=== PATIENT | male | born 1970 | race African-American/Black ===

== ENCOUNTER 2020-05-27 10:25 | Outpatient (REF) | payer MEDICARE, MEDICAID, SELFPAY ==
[2020-05-27 11:04] LABS: MANUAL DIFF FLAG NO
[2020-05-27 11:14] LABS: Basophils Percent Auto 0.5 % (0-2); Eosinophils Absolute Auto 0.1 X10*3/uL (0.0-0.4); Eosinophils Percent Auto 2.4 % (0-4); Hematocrit 44.2 % (42-52); Imm Gran Abs Auto 0.03 X10*3/uL (0.00-0.03); Imm Gran Pct Auto 0.8 % (0.0-0.4); Lymphocytes Absolute Auto 1.5 X10*3/uL (1.2-4.9); Lymphocytes Percent Auto 39.1 % (20-40); Mean Corpuscular HGB Conc 33.9 g/dl (31.0-36.0); Mean Corpuscular Hemoglobin 29.7 pg (27.0-33.0); Mean Corpuscular Volume 87.5 fL (80-98); Monocytes Absolute Auto 0.3 X10*3/uL (0.1-1.2); Neutrophils Absolute Auto 1.8 X10*3/uL (2.0-8.3); Neutrophils Percent Auto 48.2 % (45-73); Platelet Count 220 X10*3/uL (160-400); Red Blood Count 5.05 X10*6/uL (4.60-5.80); Red Cell Distribution Width 12.2 % (11.0-16.0); White Blood Count 3.8 X10*3/uL (4.8-10.8)
[2020-05-27 11:59] LABS: Alanine Aminotransferase 47 U/L (0-40); Albumin Level 4.5 g/dL (3.5-5.0); Alkaline Phosphatase 102 U/L (39-117); Aspartate Amino Transferase 32 U/L (5-37); Bilirubin Direct 0.2 mg/dL (0.0-0.5); Bilirubin Total 0.5 mg/dL (0.0-1.0); Blood Urea Nitrogen 11 mg/dL (9-16); Calcium 9.1 mg/dL (8.4-10.2); Cholesterol 147 mg/dL; Estimated Glomerular Filt Rate > 60; Glucose Fasting 103 mg/dL (60-99); HDL Cholesterol 33 mg/dL; LDL Cholesterol Calculated 97 mg/dl; Total Protein 7.5 g/dL (6.5-8.0); Triglycerides 88 mg/dL
[2020-05-27 12:07] LABS: Anion Gap 10 (12-20); Carbon Dioxide 27 mmol/L (22-29); Chloride 106 mmol/L (96-108); Potassium 4.2 mmol/l (3.3-5.1); Sodium 139 mmol/L (135-145)
== END 2020-05-27 10:26 | disposition home or self-care (01) ==
LOC: HO.LAB 10:25
DX: E78.5 Hyperlipidemia, unspecified (principal)
CPT/HCPCS: 36415; 80048; 80061; 80076; 85025

== ENCOUNTER 2020-11-26 09:33 | Outpatient (REF) | payer MEDICARE, MEDICAID, SELFPAY ==
[2020-11-26 10:46] LABS: MANUAL DIFF FLAG NO
[2020-11-26 11:00] LABS: Basophils Percent Auto 0.3 % (0-2); Eosinophils Absolute Auto 0.1 X10*3/uL (0.0-0.4); Eosinophils Percent Auto 1.3 % (0-4); Hematocrit 44.4 % (42-52); Hemoglobin 14.5 g/dl (14.0-18.0); Imm Gran Abs Auto 0.01 X10*3/uL (0.00-0.03); Imm Gran Pct Auto 0.3 % (0.0-0.4); Lymphocytes Absolute Auto 1.2 X10*3/uL (1.2-4.9); Lymphocytes Percent Auto 31.1 % (20-40); Mean Corpuscular HGB Conc 32.7 g/dl (31.0-36.0); Mean Corpuscular Hemoglobin 29.4 pg (27.0-33.0); Mean Corpuscular Volume 89.9 fL (80-98); Mean Platelet Volume 9.1 fL (9.4-12.4); Monocytes Absolute Auto 0.3 X10*3/uL (0.1-1.2); Monocytes Percent Auto 7.3 % (2-11); Neutrophils Absolute Auto 2.4 X10*3/uL (2.0-8.3); Neutrophils Percent Auto 59.7 % (45-73); Platelet Count 255 X10*3/uL (160-400); Red Blood Count 4.94 X10*6/uL (4.60-5.80); Red Cell Distribution Width 12.5 % (11.0-16.0)
[2020-11-26 11:11] LABS: Alanine Aminotransferase 50 U/L (0-40); Albumin Level 4.5 g/dL (3.5-5.0); Alkaline Phosphatase 129 U/L (39-117); Anion Gap 14 (12-20); Aspartate Amino Transferase 54 U/L (5-37); Bilirubin Total 0.2 mg/dL (0.0-1.0); Blood Urea Nitrogen 15 mg/dL (9-16); Calcium 8.7 mg/dL (8.4-10.2); Carbon Dioxide 27 mmol/L (22-29); Chloride 104 mmol/L (96-108); Cholesterol 140 mg/dL; Estimated Glomerular Filt Rate > 60; Glucose Fasting 128 mg/dL (60-99); HDL Cholesterol 35 mg/dL; LDL Cholesterol Calculated 81 mg/dl; Potassium 4.6 mmol/L (3.3-5.1); Sodium 140 mmol/L (135-145); Total Protein 7.6 g/dL (6.5-8.0); Triglycerides 122 mg/dL
== END 2020-11-26 09:34 | disposition home or self-care (01) ==
LOC: HO.LAB 09:33
PROVIDERS: PCP Internal Medicine; Visit Provider Internal Medicine
DX: E03.9 Hypothyroidism, unspecified (principal); E11.9 Type 2 diabetes mellitus without complications; Z00.00 Encounter for general adult medical examination without abnormal findings
CPT/HCPCS: 36415; 80053; 80061; 84443; 85025

== ENCOUNTER → 2021-01-13 12:46 | Outpatient (BNVA) | payer MEDICARE, MEDICAID, SELFPAY | PROVIDERS: PCP Internal Medicine; Referring Provider Internal Medicine; Visit Provider Nurse Practitioner | DX: Z12.11 Encounter for screening for malignant neoplasm of colon (principal) | CPT/HCPCS: 99202 ==

== ENCOUNTER 2021-02-16 10:56 | Day surgery (SDC) | payer MEDICARE, MEDICAID, SELFPAY ==
--- NOTE | 2021-02-15 10:19 | P.CONAN_ITS ---
Documented by User: Taryn Crespo 02/15/21 10:20 HPI - Anesthesia Eval Consult details Narrative: 50yo M for Colonoscopy PMFSH Active Problems Active Problems: All Active Problems (Updated 02/09/21 @ 16:14 by Radha Watts) Encounter for screening for malignant neoplasm of colon (Acute) Hyperlipidemia (Acute) Past Medical History Medical History (Updated 02/09/21 @ 16:14 by Radha Watts) Anemia Auditory hallucination Autism spectrum disorder Hx of psychiatric hospitalization Hyperlipidemia Insomnia Psoriasis Family History Family History Mother No problems noted. Father No problems noted. Surgical History Surgical History No pertinent past surgical history Social History Social History (Updated 01/19/21 @ 09:30 by GER Anderson) Alcohol intake: never Patient Tobacco Use Status: Never used Tobacco Use of substances other than those prescribed or required for medical reasons: No Have you been hit, kicked, punched, or otherwise hurt by someone within the past year? If so, by whom?: No Are you DNR?: No Advance Directives: No Advance Directives Information Provided: Yes Meds Allergies Allergy/AdvReac Type Severity Reaction Status Date / Time No Known Allergies Allergy Verified 02/09/21 16:01 [No Known Allergies*] Home Medications Medication Instructions Recorded Confirmed Last Taken Type olanzapine 5 mg tablet 5 mg PO BEDTIME 10/22/20 02/09/21 Unknown History primidone 50 mg tablet 50 mg PO BID 10/22/20 02/09/21 Unknown History secukinumab 150 mg/mL subcutaneous 150 mg SUBCUT Q4W 10/22/20 02/09/21 Unknown History pen injector betamethasone dipropionate 0.05 % TOPICAL 01/13/21 01/19/21 Unknown History lotion hydrocortisone 2.5 % topical TOPICAL 01/13/21 01/19/21 Unknown History ointment cholecalciferol (vitamin D3) 1 tab PO DAILY 02/09/21 02/09/21 Unknown History [Vitamin D3] Exam Exam Date and Time: February 15, 2021 1019 Pertinent Lab Results Pertinent Lab Results: Laboratory Tests 11/26/20 11/26/20 09:55 09:55 WBC 4.0 L Hgb 14.5 Hct 44.4 Plt Count 255 Sodium 140 Potassium 4.6 Chloride 104 Carbon Dioxide 27 BUN 15 Creatinine 0.88 Assessment and Plan Assessment Anesthesia Assessment: Chart Reviewed Documented by User: Nahomy Jack 02/16/21 12:20 [facility] Past Medical History Medical History (Updated 02/09/21 @ 16:14 by Radha Watts) Anemia Auditory hallucination Autism spectrum disorder Hx of psychiatric hospitalization Hyperlipidemia Insomnia Psoriasis Family History Family History Mother No problems noted. Father No problems noted. Surgical History Surgical History No pertinent past surgical history Social History Social History (Updated 01/19/21 @ 09:30 by GER Anderson) Alcohol intake: never Patient Tobacco Use Status: Never used Tobacco Use of substances other than those prescribed or required for medical reasons: No Have you been hit, kicked, punched, or otherwise hurt by someone within the past year? If so, by whom?: No Are you DNR?: No Advance Directives: No Advance Directives Information Provided: Yes Meds Allergies Allergy/AdvReac Type Severity Reaction Status Date / Time No Known Allergies Allergy Verified 02/09/21 16:01 [No Known Allergies*] Home Medications Medication Instructions Recorded Confirmed Last Taken Type olanzapine 5 mg tablet 5 mg PO BEDTIME 10/22/20 02/09/21 Unknown History primidone 50 mg tablet 50 mg PO BID 10/22/20 02/09/21 Unknown History secukinumab 150 mg/mL subcutaneous 150 mg SUBCUT Q4W 10/22/20 02/09/21 Unknown History pen injector betamethasone dipropionate 0.05 % TOPICAL 01/13/21 01/19/21 Unknown History lotion hydrocortisone 2.5 % topical TOPICAL 01/13/21 01/19/21 Unknown History ointment cholecalciferol (vitamin D3) 1 tab PO DAILY 02/09/21 02/09/21 Unknown History [Vitamin D3] Exam Airway Mallampati Class: II TM Dist: >3cm Neck ROM: Full Heart: rrr Lungs: cta Assessment and Plan Assessment Anesthesia Assessment: Anesthesia Plan Discussed and Chart Reviewed Final Anesthetic Review NPO: Yes ASA Class: III Final Preanesthetic Review: No Changes in Pt Med Stat and Consent Obtained/Reviewed Patient Risk: Intermediate Procedure Risk: Intermediate Anesthetic Plan Anesthetic Plan: MAC: Disposition: Standard PACU
[2021-02-16 11:14] VITALS: BMI 33.9
[2021-02-16 11:15] VITALS: BP 114/82; PULSE 62; RESP 18; TEMP 35.8; O2SAT 99
[2021-02-16] MEDS: Lactated Ringers 1,000 ML 100 ML IVCONT (11:41)
--- NOTE | 2021-02-16 11:51 | MHC.SHP ---
Pre-Procedural Eval Section B Chief Complaint: Screening Relevant Family History (Specify if Yes): No Relevant Social History: None Present Medications: see Short Stay Collaborative assessment Medical History: Significant History (Anemia Auditory hallucination Autism spectrum disorder Hx of psychiatric hospitalization Hyperlipidemia Insomnia Psoriasis) History of Previous Operations: No relevant previous surgery Allergies: Allergies Allergy/AdvReac Type Severity Reaction Status Date / Time No Known Allergies Allergy Verified 02/09/21 16:01 [No Known Allergies*] Review of Systems Sugical H&P ROS: Negative: Constitution, Cardiovascular, Respiratory, Neurological, Psychiatric, Hem-Onc, Allergic/Immunologic, Gastrointestinal, Genitourinary, Musculoskeletal, Integumentary, Endocrine and Eyes/Ears/Nose/Throat Exam Surgical H&P Exam: Normal: HEENT, Normal: Heart, Normal: Lungs, Normal: Extremities, Normal: Abdomen, Normal: Skin and Normal: Neurological Plan Diagnosis/Plan: Unchanged I have reviewed the history and physical and performed a pertinent physical examination on my patient. No changes have occurred unless specified.
--- NOTE | 2021-02-16 12:13 | PM.OP ---
Brief Operative Note Date of Service: 02/16/21 Pre-op diagnosis: colon screening Post-op diagnosis: same Procedure: see op note Surgeon: Alexandro Be MD Anesthesia: MAC Was an Lithograph Press Operator used for this Procedure?: No Estimated blood loss (mL): 0 Condition: stable Disposition: PACU
--- NOTE | 2021-02-16 12:14 | W.PM.OPN ---
Operative Note Operative Note Date of Service: 02/16/21 Narrative: Operative Information Procedure Description: Colonoscopy COLONOSCOPY Instrument: Olympus variable stiffness pediatric scope 190L Colonoscopy Monitoring: Vital signs and clinical assessment, continuous EKG monitoring, Pulse oximetry, Carbon Dioxide monitoring and blood pressure monitoring were done throughout the procedure. Colon withdrawal time was 15 minutes. Procedure: The patient was placed in the left lateral decubitis position and pre-procedure medications were administered. After a digital rectal examination of the ano-rectum, the video colonoscope was inserted into the rectum and advanced through the colon to the cecum/TI. The colonoscope was slowly withdrawn in a retrograde panoramic fashion and the colon mucosa was carefully examined including a retroflexed view of the rectum. Findings and interventions are described below. Procedure Difficulty:easy Findings: Terminal Ileum-normal Cecum:normal Ascending Colon: normal Transverse Colon -normal Descending Colon:normal Sigmoid Colon: normal apart from x 2 sessile polyps 8-9 mm removed with forceps, mild diverticulosis noted with small diverticula Rectum: Retroflexion with small internal hemorrhoids, grade I Anorectum - normal Colon preparation: [place] Bowel Preparation Scale Right colon; 2 Transverse colon: 3 Left colon; 2 (0 = Unprepared colon segment with mucosa not seen due to solid stool that cannot be cleared. 1 = Portion of mucosa of the colon segment seen, but other areas of the colon segment not well seen due to staining, residual stool and/or opaque liquid. 2 = Minor amount of residual staining, small fragments of stool and/or opaque liquid, but mucosa of colon segment seen well. 3 = Entire mucosa of colon segment seen well with no residual staining, small fragments of stool or opaque liquid) Impression and Post Procedure Diagnosis: polyps internal hemorrhoids diverticular disease Plan: High fiber diet leaflet Avoid straining at stool, epsom salts and sitz bath, anusol supps or cream as needed Repeat Colonoscopy in 5 years if adenomatous polyps, otherwise 10 yrs or earlier if clinically indicated Above findings were reviewed with the patient and relevant handouts were provided if indicated.
[2021-02-16 12:59] VITALS: BP 107/73; PULSE 65; RESP 16; TEMP 36.3; O2SAT 98
[2021-02-16 13:14] VITALS: BP 115/76; PULSE 87; RESP 18; O2SAT 100
== END 2021-02-16 14:25 | disposition home or self-care (01) ==
PROVIDERS: PCP Internal Medicine; Visit Provider Internal Medicine Gastroenterology
PROC: 0DJD8ZZ Inspection of Lower Intestinal Tract, Via Natural or Artificial Opening Endoscopic (ICD-10-PCS; CPT 45378; principal; 2021-02-16 12:20)
DX: Z12.11 Encounter for screening for malignant neoplasm of colon (principal); K63.5 Polyp of colon; K64.0 First degree hemorrhoids; K57.30 Diverticulosis of large intestine without perforation or abscess without bleeding; D64.9 Anemia, unspecified; F84.0 Autistic disorder; R44.0 Auditory hallucinations; G47.00 Insomnia, unspecified; F51.9 Sleep disorder not due to a substance or known physiological condition, unspecified; E78.5 Hyperlipidemia, unspecified; L40.9 Psoriasis, unspecified; Z79.899 Other long term (current) drug therapy
CPT/HCPCS: 45380; 88305

== ENCOUNTER → 2021-03-14 15:00 | Outpatient (BNVA) | payer MEDICARE, MEDICAID, SELFPAY | PROVIDERS: PCP Internal Medicine; Visit Provider Nurse Practitioner | DX: Z12.11 Encounter for screening for malignant neoplasm of colon (principal) | CPT/HCPCS: Q3014 ==

== ENCOUNTER 2021-05-30 10:03 | Outpatient (REF) | payer MEDICARE, MEDICAID, SELFPAY ==
[2021-05-30 11:02] LABS: Cholesterol 147 mg/dL; HDL Cholesterol 37 mg/dL; LDL Cholesterol Calculated 92 mg/dl; Triglycerides 90 mg/dL
== END 2021-05-30 10:04 | disposition home or self-care (01) ==
LOC: HO.LAB 10:03
PROVIDERS: Visit Provider Internal Medicine
DX: E11.9 Type 2 diabetes mellitus without complications (principal)
CPT/HCPCS: 36415; 80061

== ENCOUNTER 2021-11-22 08:12 | Outpatient (REF) | payer MEDICARE, MEDICAID, SELFPAY ==
[2021-11-22 09:32] LABS: Cholesterol 131 mg/dL; HDL Cholesterol 38 mg/dL; LDL Cholesterol Calculated 78 mg/dl; Triglycerides 78 mg/dL
== END 2021-11-22 08:13 | disposition home or self-care (01) ==
LOC: HO.LAB 08:12
PROVIDERS: PCP Internal Medicine; Visit Provider Internal Medicine
DX: Z00.00 Encounter for general adult medical examination without abnormal findings (principal); Z13.220 Encounter for screening for lipoid disorders
CPT/HCPCS: 36415; 80061

== ENCOUNTER 2022-03-17 11:29 | Outpatient (REF) | payer MEDICAID, SELFPAY ==
[2022-03-17 12:43] LABS: Cholesterol 144 mg/dL; HDL Cholesterol 40 mg/dL; LDL Cholesterol Calculated 84 mg/dl; Triglycerides 102 mg/dL
== END 2022-03-17 11:30 | disposition home or self-care (01) ==
LOC: HO.LAB 11:29
PROVIDERS: PCP Internal Medicine; Visit Provider Internal Medicine
DX: Z13.220 Encounter for screening for lipoid disorders (principal)
CPT/HCPCS: 36415; 80061

== ENCOUNTER 2022-06-07 10:14 | Outpatient (REF) | payer MEDICARE, MEDICAID, SELFPAY ==
[2022-06-07 10:28] LABS: MANUAL DIFF FLAG NO
[2022-06-07 10:56] LABS: Basophils Percent Auto 0.5 % (0-2); Eosinophils Absolute Auto 0.1 X10*3/uL (0.0-0.4); Eosinophils Percent Auto 1.8 % (0-4); Hematocrit 44.4 % (42.0-52.0); Hemoglobin 15.1 g/dl (14.0-18.0); Imm Gran Abs Auto 0.01 X10*3/uL (0.00-0.03); Imm Gran Pct Auto 0.2 % (0.0-0.4); Lymphocytes Absolute Auto 1.4 X10*3/uL (1.2-4.9); Mean Corpuscular Hemoglobin 29.5 pg (27.0-33.0); Mean Corpuscular Volume 86.7 fL (80.0-98.0); Mean Platelet Volume 8.7 fL (9.4-12.4); Monocytes Absolute Auto 0.3 X10*3/uL (0.1-1.2); Monocytes Percent Auto 7.2 % (2-11); Neutrophils Absolute Auto 2.5 x10*3/uL (2.0-8.3); Neutrophils Percent Auto 57.3 % (45-73); Platelet Count 244 X10*3/uL (160-400); Red Blood Count 5.12 X10*6/uL (4.60-5.80); Red Cell Distribution Width 12.5 % (11.0-16.0); White Blood Count 4.3 X10*3/uL (4.8-10.8)
[2022-06-07 12:05] LABS: Alanine Aminotransferase 38 U/L (0-40); Albumin Level 4.5 g/dL (3.5-5.0); Alkaline Phosphatase 126 U/L (39-117); Anion Gap 14 (12-20); Aspartate Amino Transferase 28 U/L (5-37); Bilirubin Total 0.8 mg/dL (0.0-1.0); Blood Urea Nitrogen 5 mg/dL (9-16); Calcium 9.3 mg/dL (8.4-10.2); Carbon Dioxide 28 mmol/L (22-29); Chloride 103 mmol/L (96-108); Cholesterol 152 mg/dL; Estimated Glomerular Filt Rate > 60; Glucose Fasting 124 mg/dL (60-99); HDL Cholesterol 40 mg/dL; LDL Cholesterol Calculated 89 mg/dl; Potassium 4.2 mmol/L (3.3-5.1); Sodium 141 mmol/L (135-145); Total Protein 7.8 g/dL (6.5-8.0); Triglycerides 115 mg/dL
== END 2022-06-07 10:15 | disposition home or self-care (01) ==
LOC: HO.LAB 10:14
PROVIDERS: PCP Internal Medicine; Visit Provider Internal Medicine
DX: E03.9 Hypothyroidism, unspecified (principal); E78.5 Hyperlipidemia, unspecified; I10 Essential (primary) hypertension; Z13.0 Encounter for screening for diseases of the blood and blood-forming organs and certain disorders involving the immune mechanism
CPT/HCPCS: 36415; 80053; 80061; 84443; 85025

== ENCOUNTER 2023-01-29 10:26 | Outpatient (REF) | payer MEDICARE, MEDICAID, SELFPAY ==
[2023-01-29 12:17] LABS: Cholesterol 133 mg/dL; HDL Cholesterol 39 mg/dL; LDL Cholesterol Calculated 80 mg/dl; Triglycerides 73 mg/dL
== END 2023-01-29 10:27 | disposition home or self-care (01) ==
LOC: HO.LAB 10:26
PROVIDERS: PCP Internal Medicine; Visit Provider Internal Medicine
DX: E78.5 Hyperlipidemia, unspecified (principal)
CPT/HCPCS: 36415; 80061

== ENCOUNTER 2023-03-27 13:30 | Outpatient (AMB) | payer MEDICARE, MEDICAID, SELFPAY ==
--- NOTE | 2023-03-27 13:38 | MHC.PC.OV ---
Vital Signs 03/27/23 13:39 Height 6 ft 1 in Weight 246 lb 6 oz BMI 32.5 BP 130/70 Blood Pressure Location Lt brachial Position Sitting Pulse 85 Pulse Source Pulse Oximeter Pulse Oximetry (%) 95 Oxygen Delivery Method Room Air Intake Visit Reasons: swollen right knee Intake Note: Patient is here today for swollen right knee External Relations Manager Required: No Plate And Weld Inspector: Not Required per policy Accompanied by: Self / Same As Patient Allergies No Known Allergies [No Known Allergies*] Allergy (Verified 03/27/23 13:39) Medication List - Last Reconciled 03/27/23 by Nicholas Daniels MD atorvastatin 80 mg PO DAILY folic acid 1 mg PO DAILY olanzapine 10 mg PO BEDTIME primidone 50 mg PO BID risankizumab-rzaa (Skyrizi) 150 mg subcut Q12W Tobacco use date assessed: 03/27/23 Dental Screening Dental Screen Date: 03/27/23 Did you have a dental visit in the last 12 months?: No Did you have a dental problem in the last 6 months where you did not have access to dental care?: No Was dental information given to patient?: No HPI swollen right knee HPI Details right knee pain and swelling for a few days; no injury PFSH Medical History Anemia Auditory hallucination Autism spectrum disorder Hx of psychiatric hospitalization Hyperlipidemia Insomnia Obesity Psoriasis Surgical History H/O colonoscopy No pertinent past surgical history Family History Mother No problems noted. Father No problems noted. Social History Housing: Condominium Alcohol intake: never Patient Tobacco Use Status: Never used Tobacco e-Cigarette/Vaping Use: Never Used Second Hand Smoke Exposure: No service: No Current occupational status: unemployed Cognitive needs: No Hearing needs: No Vision needs: Yes (glasses) Questionnaire Thrive Questionnaire Date Thrive assessed: 11/16/22 BARRETT-7 AMB Questionnaire BARRETT-7 Date BARRETT - 7 assessed: 11/16/22 Source: Developed by Drs. Tyrell Keen, Tiffany Brooks, Chucho Abdi and colleagues, with an educational halina from [employer]. Review of Systems Const Denies chills, Denies headache(s) and Denies weight loss ENT Denies headache(s) Card Denies chest pain, Denies syncope, Denies irregular heart rhythm and Denies dyspnea Resp Denies chest congestion, Denies cough and Denies dyspnea GI Denies abdominal pain, Denies change in stool character, Denies nausea and Denies vomiting Musc Denies deformity and Denies joint swelling Neuro Denies syncope and Denies headache(s) Physical exam (Primary Care) Vital Signs: Last Vital Signs Pulse 85 03/27/23 13:39 BP 130/70 03/27/23 13:39 Pulse Ox 95 03/27/23 13:39 Oxygen Delivery Method Room Air 03/27/23 13:39 BMI result Body Mass Index 32.5 Tobacco/Smoking Status: Tobacco use Status Tobacco use date assessed 03/27/23 03/27/23 13:43 Patient Tobacco Use Status Never used Tobacco 03/27/23 13:43 e-Cigarette/Vaping Use Never Used 03/27/23 13:43 Thrive Assessment: Date of Thrive Assessment Date Thrive assessed 11/16/22 03/27/23 13:43 Const General: cooperative Chest Chest palpation & inspection: normal inspection of the chest GI Inspection: Yes normal to inspection Extrem Other: right knee swollen tender and warm Assessment and Plan Assessment & Plan (1) Knee pain: Code(s): M25.569 - Pain in unspecified knee Plan: xr labs and rx; possible gout Orders: Orders Uric Acid Today M10.9 - Gout, unspecified XR knee RT 2V Today M25.569 - Pain in unspecified knee Medications: New methylprednisolone (Medrol (Chato)) PO PER PKG DIR 21 ea 0RF tramadol 50 mg PO Q8H PRN 20 tabs 0RF pain 7 days Coding Level of Care Code Est Pt Level 3 (96188) Diagnoses Knee pain M25.569
[2023-03-27 13:39] VITALS: BP 130/70; PULSE 85; O2SAT 95; BMI 32.5
== END 2023-03-27 14:14 | disposition home or self-care (01) ==
LOC: HO.HMGH 13:30
PROVIDERS: PCP Internal Medicine; Visit Provider Internal Medicine
DX: M25.569 Pain in unspecified knee (principal)
CPT/HCPCS: 99213

== ENCOUNTER 2023-03-27 13:57 | Outpatient (REF) | payer MEDICARE, MEDICAID, SELFPAY ==
--- NOTE | ~2023-03-27 | XR_ITS ---
EXAMINATION: XR KNEE, RIGHT CLINICAL INFORMATION: Pain. COMPARISON: None available. TECHNIQUE: AP and lateral views of the right knee. FINDINGS: Bony alignment and mineralization are normal. The lateral, medial and patellofemoral joint space compartment are well-maintained. There is mild peripheral osteophyte formation of the medial and patellofemoral compartments. There is no fracture or dislocation. There is a moderate joint effusion. No foreign body is noted. XR/XR knee RT 2V IMPRESSION: 1. There is mild osteoarthritic change of the medial and patellofemoral joint space compartments of the right knee. 2. No fracture or dislocation is seen. 3. There is a small joint effusion.
== END 2023-03-27 13:58 | disposition home or self-care (01) ==
LOC: HO.XRAY 13:57
PROVIDERS: PCP Internal Medicine; Visit Provider Internal Medicine
DX: M25.561 Pain in right knee (principal)
CPT/HCPCS: 73560

== ENCOUNTER 2023-04-04 08:30 | Outpatient (AMB) | payer MEDICARE, MEDICAID, SELFPAY ==
--- NOTE | 2023-04-04 09:09 | A.OFFPC_ITS ---
Vital Signs 04/04/23 09:10 Height 6 ft 1 in Weight 236 lb 8 oz BMI 31.2 BP 100/72 Blood Pressure Location Lt brachial Position Sitting Pulse 71 Pulse Source Pulse Oximeter Pulse Oximetry (%) 96 Oxygen Delivery Method Room Air Intake Visit Reasons: right knee pain Intake Note: Patient is here today for right knee pain Computer Peripheral Equipment Operator Required: No Electromechanical Engineer: Not Required per policy Accompanied by: Self / Same As Patient Allergies No Known Allergies [No Known Allergies*] Allergy (Verified 04/04/23 09:10) Tobacco use date assessed: 04/04/23 HPI right knee pain HPI Details ongoing right knee pain; has an effusion on xr PFSH Medical History Anemia Auditory hallucination Autism spectrum disorder Hx of psychiatric hospitalization Hyperlipidemia Insomnia Obesity Psoriasis Surgical History H/O colonoscopy No pertinent past surgical history Family History Mother No problems noted. Father No problems noted. Social History Housing: Condominium Alcohol intake: never Patient Tobacco Use Status: Never used Tobacco e-Cigarette/Vaping Use: Never Used Second Hand Smoke Exposure: No service: No Current occupational status: unemployed Cognitive needs: No Hearing needs: No Vision needs: Yes (glasses) Questionnaire Thrive Questionnaire Date Thrive assessed: 11/16/22 BARRETT-7 AMB Questionnaire BARRETT-7 Date BARRETT - 7 assessed: 11/16/22 Source: Developed by Drs. Tyrell Keen, Tiffany Brooks, Chucho Abdi and colleagues, with an educational halina from [employer]. Review of Systems Const Denies chills, Denies headache(s) and Denies weight loss ENT Denies headache(s) Card Denies chest pain, Denies syncope, Denies irregular heart rhythm and Denies dyspnea Resp Denies chest congestion, Denies cough and Denies dyspnea GI Denies abdominal pain, Denies change in stool character, Denies nausea and Denies vomiting Musc Denies deformity and Denies joint swelling Neuro Denies syncope and Denies headache(s) Physical exam (Primary Care) Vital Signs: Last Vital Signs Pulse 71 04/04/23 09:10 BP 100/72 04/04/23 09:10 Pulse Ox 96 04/04/23 09:10 Oxygen Delivery Method Room Air 04/04/23 09:10 BMI result Body Mass Index 31.2 Tobacco/Smoking Status: Tobacco use Status Tobacco use date assessed 04/04/23 04/04/23 09:15 Patient Tobacco Use Status Never used Tobacco 04/04/23 09:15 e-Cigarette/Vaping Use Never Used 04/04/23 09:15 Thrive Assessment: Date of Thrive Assessment Date Thrive assessed 11/16/22 04/04/23 09:15 Const General: cooperative Chest Chest palpation & inspection: normal inspection of the chest GI Inspection: Yes normal to inspection Extrem Other: right knee swollen tender and warm Assessment and Plan Assessment & Plan (1) Knee effusion: Code(s): M25.469 - Effusion, unspecified knee Plan: check Uric acid Orders: Orders Uric Acid Today M10.9 - Gout, unspecified Referrals Orthopedics Referral M25.469 - Effusion, unspecified knee Coding Level of Care Code Est Pt Level 3 (80901) Diagnoses Knee effusion M25.469
[2023-04-04 09:10] VITALS: BP 100/72; PULSE 71; O2SAT 96; BMI 31.2
== END 2023-04-04 09:48 | disposition home or self-care (01) ==
LOC: HO.HMGH 08:30
PROVIDERS: PCP Internal Medicine; Visit Provider Internal Medicine
DX: M25.469 Effusion, unspecified knee (principal)
CPT/HCPCS: 99213

== ENCOUNTER 2023-04-27 12:08 | Outpatient (REF) | payer MEDICARE, MEDICAID, SELFPAY ==
[2023-04-27 12:19] LABS: MANUAL DIFF FLAG NO
[2023-04-27 13:10] LABS: Basophils Percent Auto 0.4 % (0-2); Eosinophils Percent Auto 0.7 % (0-4); Hemoglobin 13.8 g/dl (14.0-18.0); Imm Gran Abs Auto 0.01 X10*3/uL (0.00-0.03); Imm Gran Pct Auto 0.2 % (0.0-0.4); Lymphocytes Absolute Auto 1.5 X10*3/uL (1.2-4.9); Lymphocytes Percent Auto 26.1 % (20-40); Mean Corpuscular HGB Conc 32.9 g/dl (31.0-36.0); Mean Corpuscular Hemoglobin 28.9 pg (27.0-33.0); Mean Corpuscular Volume 88.1 fL (80.0-98.0); Monocytes Absolute Auto 0.5 X10*3/uL (0.1-1.2); Monocytes Percent Auto 8.1 % (2-11); Neutrophils Absolute Auto 3.6 x10*3/uL (2.0-8.3); Neutrophils Percent Auto 64.5 % (45-73); Platelet Count 266 X10*3/uL (160-400); Red Blood Count 4.77 X10*6/uL (4.60-5.80); Red Cell Distribution Width 13.1 % (11.0-16.0); White Blood Count 5.6 X10*3/uL (4.8-10.8)
[2023-04-27 14:35] LABS: Alanine Aminotransferase 37 U/L (0-40); Albumin Level 4.7 g/dL (3.5-5.0); Alkaline Phosphatase 130 U/L (39-117); Anion Gap 15 (12-20); Aspartate Amino Transferase 26 U/L (5-37); Bilirubin Total 0.8 mg/dL (0.0-1.0); Blood Urea Nitrogen 9 mg/dL (9-16); Carbon Dioxide 23 mmol/L (22-29); Chloride 107 mmol/L (96-108); Cholesterol 151 mg/dL (<200); Estimated Glomerular Filt Rate > 60; Glucose Fasting 100 mg/dL (60-99); HDL Cholesterol 44 mg/dL (>40); LDL Cholesterol Calculated 94 mg/dL (<100); Potassium 3.9 mmol/L (3.3-5.1); Sodium 141 mmol/L (135-145); Total Protein 8.1 g/dL (6.5-8.0); Triglycerides 66 mg/dL (<150); Uric Acid 5.5 mg/dL (3.4-7.0)
[2023-04-27 14:53] LABS: Thyroid Stimulating Hormone 0.78 uIU/mL (0.32-4.0)
== END 2023-04-27 12:09 | disposition home or self-care (01) ==
LOC: HO.LAB 12:08
PROVIDERS: PCP Internal Medicine; Visit Provider Internal Medicine
DX: D64.9 Anemia, unspecified (principal); E03.9 Hypothyroidism, unspecified; M10.9 Gout, unspecified; N28.9 Disorder of kidney and ureter, unspecified; E78.5 Hyperlipidemia, unspecified
CPT/HCPCS: 36415; 80053; 80061; 84443; 84550; 85025

== ENCOUNTER 2023-05-14 09:37 | Outpatient (AMB) | payer MEDICARE, MEDICAID, SELFPAY ==
--- NOTE | 2023-05-14 09:47 | AM.OFFVISNUR ---
Intake Intake Visit Reasons: TB Shot Allergies No Known Allergies [No Known Allergies*] Allergy (Verified 04/04/23 09:10) Office Meds tuberculin PPD 5 tub. unit/0.1 mL intradermal injection solution Performing Provider: Nicholas Daniels MD [facility] Administered by: Lisbet Paz RN on 05/14/23 09:47 Dose Route Admin Location Dispensed Lot Number Expiration Date NDC Spooling Supervisor 0.1 mL intradermal left forearm 0.1 mL [id number] 06/26/26 91510-455-91 [employer] Coding Assessment & Plan Assessment & Plan Orders: Orders AMB PPD Planted Today Z11.1 - Encounter for screening for respiratory tuberculosis
== END 2023-05-14 09:48 | disposition home or self-care (01) ==
PROVIDERS: PCP Internal Medicine; Visit Provider Internal Medicine
DX: Z11.1 Encounter for screening for respiratory tuberculosis (principal)
CPT/HCPCS: 86580

== ENCOUNTER 2023-05-22 09:33 | Outpatient (AMB) | payer MEDICARE, MEDICAID, SELFPAY ==
[2023-05-22 09:53] VITALS: BP 132/84; PULSE 70; O2SAT 98; BMI 33.1
--- NOTE | 2023-05-22 09:53 | MHC.PC.OV ---
Vital Signs 05/22/23 09:53 Height 6 ft 1 in Weight 251 lb BMI 33.1 BP 132/84 Blood Pressure Location Lt brachial Position Sitting Pulse 70 Pulse Source Pulse Oximeter Pulse Oximetry (%) 98 Oxygen Delivery Method Room Air Intake Visit Reasons: 3mth f/u Special Client Bus Driver: Not Required per policy Accompanied by: Self / Same As Patient Allergies No Known Allergies [No Known Allergies*] Allergy (Verified 05/22/23 09:53) Medication List - Last Reconciled 05/22/23 by Nicholas Daniels MD atorvastatin 80 mg PO DAILY folic acid 1 mg PO DAILY methylprednisolone (Medrol (Chato)) PO PER PKG DIR olanzapine 10 mg PO BEDTIME primidone 50 mg PO BID risankizumab-rzaa (Skyrizi) 150 mg subcut Q12W tramadol 50 mg PO Q8H PRN 7 days Tobacco use date assessed: 04/04/23 Dental Screening Dental Screen Date: 05/22/23 Did you have a dental visit in the last 12 months?: No Did you have a dental problem in the last 6 months where you did not have access to dental care?: No Was dental information given to patient?: Patient has dentist HPI 3mth f/u HPI Details hyperlipidemia on rx; compliant PFSH Medical History Obesity Hx of psychiatric hospitalization Anemia Psoriasis Insomnia Auditory hallucination Autism spectrum disorder Hyperlipidemia Surgical History H/O colonoscopy No pertinent past surgical history Family History Mother No problems noted. Father No problems noted. Social History Housing: Condominium Alcohol intake: never Patient Tobacco Use Status: Never used Tobacco e-Cigarette/Vaping Use: Never Used Second Hand Smoke Exposure: No service: No Current occupational status: unemployed Cognitive needs: No Hearing needs: No Vision needs: Yes (glasses) Questionnaire PHQ-9 Over the last 2 weeks, how often have you been bothered by any of the following problems? 1. Little interest or pleasure in doing things: not at all 2. Feeling down, depressed, or hopeless: not at all 3. Trouble falling or staying asleep, or sleeping too much: not at all 4. Feeling tired or having little energy: not at all 5. Poor appetite or overeating: not at all 6. Feeling bad about yourself - or that you are a failure or have let yourself or your family down: not at all 7. Trouble concentrating on things, such as reading the newspaper or watching television: not at all 8. Moving or speaking so slowly that other people could have noticed. Or the opposite - being so fidgety or restless that you have been moving around a lot more than usual: not at all 9. Thoughts that you would be better off or of hurting yourself in some way: not at all Total score: 0 Depression Screening Interpretation: Negative Source: Developed by Drs. Tyrell Keen, Tiffany Brooks, Chucho Abdi and colleagues, with an educational halina from [employer]. Thrive Questionnaire Date Thrive assessed: 11/16/22 AUDIT C Alcohol Use Questionnaire (AUDIT-C) 1. How often do you have a drink containing alcohol?: Never Total Score: 0 Score Reviewed/Action Taken: Yes BARRETT-7 AMB Questionnaire BARRETT-7 Date BARRETT - 7 assessed: 11/16/22 Source: Developed by Drs. Tyrell Keen, Tiffany Brooks, Chucho Abdi and colleagues, with an educational halina from [employer]. Review of Systems Const Denies chills, Denies headache(s) and Denies weight loss ENT Denies headache(s) Card Denies chest pain, Denies syncope, Denies irregular heart rhythm and Denies dyspnea Resp Denies chest congestion, Denies cough and Denies dyspnea GI Denies abdominal pain, Denies change in stool character, Denies nausea and Denies vomiting Musc Denies deformity and Denies joint swelling Neuro Denies syncope and Denies headache(s) Physical exam (Primary Care) Vital Signs: Last Vital Signs Pulse 70 05/22/23 09:53 BP 132/84 05/22/23 09:53 Pulse Ox 98 05/22/23 09:53 Oxygen Delivery Method Room Air 05/22/23 09:53 BMI result Body Mass Index 33.1 Tobacco/Smoking Status: Tobacco use Status Tobacco use date assessed 04/04/23 05/22/23 09:57 Patient Tobacco Use Status Never used Tobacco 05/22/23 09:57 e-Cigarette/Vaping Use Never Used 05/22/23 09:57 PHQ-9: PHQ-9 Score PHQ-9: Total score 0 05/22/23 09:57 Depression Screening Interpretation: Negative Thrive Assessment: Date of Thrive Assessment Date Thrive assessed 11/16/22 05/22/23 09:57 Const General: cooperative, comfortable, no acute distress and alert Neck Neck: Yes no lymphadenopathy Thyroid: Thyroid normal Resp Effort & Inspection: normal respiratory effort Auscultation: clear to auscultation bilaterally Percussion: percussion normal Cardio Jugular venous distension: no JVD Palpation: normal PMI Rate: regular rate Rhythm: regular rhythm Heart sounds: S1 normal heart sound present and S2 normal heart sound present GI Inspection: Yes normal to inspection Palpation (GI): No hepatosplenomegaly present Skin General skin exam: no rashes or lesions noted Extrem General: Yes no clubbing, cyanosis or edema Assessment and Plan Assessment & Plan (1) Hyperlipidemia: Code(s): E78.5 - Hyperlipidemia, unspecified Plan: stable; do labs Orders: Orders Lipid Panel Today E78.5 - Hyperlipidemia, unspecified Coding Level of Care Code Est Pt Level 3 (90971) Diagnoses Hyperlipidemia E78.5
== END 2023-05-22 10:19 | disposition home or self-care (01) ==
PROVIDERS: PCP Internal Medicine; Visit Provider Internal Medicine
DX: E78.5 Hyperlipidemia, unspecified (principal)
CPT/HCPCS: 99213

== ENCOUNTER 2023-05-24 08:32 | Outpatient (REF) | payer MEDICARE, MEDICAID, SELFPAY ==
--- NOTE | ~2023-05-24 | XR_ITS ---
EXAMINATION: XR KNEES AP STANDING, BILATERAL XR KNEE, RIGHT CLINICAL INFORMATION: Right knee pain. COMPARISON: Right knee radiographs dated 03/27/2023. TECHNIQUE: Standing AP view of both knees and lateral and sunrise views of the right knee. FINDINGS: RIGHT KNEE: Mild medial and patellofemoral compartment joint space narrowing. Tricompartmental marginal osteophytes. No acute fracture or dislocation. No concerning lytic or blastic osseous lesion. Superior and inferior patellar enthesophytes. Atherosclerotic calcifications. Small joint effusion. LEFT KNEE: Mild medial compartment joint space narrowing. Medial and lateral compartment marginal osteophytes. No osseous erosion. No abnormal soft tissue calcification. XR/XR knee standing BI IMPRESSION: Right Knee: Kkqq-qi-rjfqmxbp tricompartmental osteoarthritis. Small joint effusion. Left Knee: [id number]-[id number] medial and mild lateral compartment osteoarthritis.
--- NOTE | ~2023-05-24 | XR_ITS ---
EXAMINATION: XR KNEES AP STANDING, BILATERAL XR KNEE, RIGHT CLINICAL INFORMATION: Right knee pain. COMPARISON: Right knee radiographs dated 03/27/2023. TECHNIQUE: Standing AP view of both knees and lateral and sunrise views of the right knee. FINDINGS: RIGHT KNEE: Mild medial and patellofemoral compartment joint space narrowing. Tricompartmental marginal osteophytes. No acute fracture or dislocation. No concerning lytic or blastic osseous lesion. Superior and inferior patellar enthesophytes. Atherosclerotic calcifications. Small joint effusion. LEFT KNEE: Mild medial compartment joint space narrowing. Medial and lateral compartment marginal osteophytes. No osseous erosion. No abnormal soft tissue calcification. XR/XR knee RT 2V IMPRESSION: Right Knee: Bhsg-ge-klbyhrsf tricompartmental osteoarthritis. Small joint effusion. Left Knee: Bqzs-oa-sbcscxae medial and mild lateral compartment osteoarthritis.
== END 2023-05-24 08:33 | disposition home or self-care (01) ==
LOC: HO.HOSX 08:32
PROVIDERS: Visit Provider Orthopaedic Surgery
DX: M17.11 Unilateral primary osteoarthritis, right knee (principal)
CPT/HCPCS: 20610; 73560; 73565; J1100

== ENCOUNTER 2023-05-24 10:59 | Outpatient (AMB) | payer MEDICARE, MEDICAID, SELFPAY ==
--- NOTE | 2023-05-24 10:26 | MHC.OFFVIS ---
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 Patient reports that he has had ongoing knee pain for about three months now, he has increased pain with walking, standing and stairs. 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 He has pain with daily activity, worse with standing, walking, or using stairs, especially descending. He says his pain has been present since 02/2023, along with swelling, and he denies any falls or known injury. He says his swelling has improved but he continues to have pain and feels limited in his ADLs. He walks with a limp. He says he took time off of work, for ~2 months now, so he could rest his knee. He denies any prior treatment. He found relief from Tramadol but says he finished his prescription. [facility] Medical History Obesity Hx of psychiatric hospitalization Anemia Psoriasis Insomnia Auditory hallucination Autism spectrum disorder Hyperlipidemia Surgical History H/O colonoscopy No pertinent past surgical history Family History Mother No problems noted. Father No problems noted. Social History Housing: Condominium Alcohol intake: never Patient Tobacco Use Status: Never used Tobacco e-Cigarette/Vaping Use: Never Used Second Hand Smoke Exposure: No service: No Current occupational status: unemployed Cognitive needs: No Hearing needs: No Vision needs: Yes (glasses) Review of Systems Const All systems reviewed & are unremarkable except as noted in HPI and below Physical Exam Vital Signs: BMI result Body Mass Index 33.1 Const General: no acute distress, alert and awake Orientation/consciousness: patient oriented x3 HEENT Head: Yes normocephalic and Yes atraumatic Eyes EOM: EOMs intact bilaterally Resp Effort & Inspection: normal respiratory effort and able to speak in complete sentences Cardio Jugular venous distension: no JVD Skin General skin exam: turgor normal Rashes: no rashes Neuro General: patient oriented x3 Extrem Other: Right Knee: Antagic gait Psych Appearance: grossly normal Affect: normal affect Attitude: cooperative Office Procedures Joint Injection/Drain Joint Injection/Drain Details: Injected 1 mL of Decadron and 3 mL 1% lidocaine and 3 mL of 0.25% Marcaine. Site was prepped using aseptic technique. Patient tolerated the procedure well. Primary Site: right knee Approach Used: anterolateral Coding 99238 - Large joint Procedure code (CPT) selection complete Results Reviewed Results Reviewed: 05/24/23 11:26 BUPivacaine MPF 0.25 % [Sensorcaine-MPF 0.25% 10 ML] 10 ml .ROUTE .STK-MED ONE Lidocaine HCl 2 % MPF [Xylocaine 2 % MPF] 5 ml .ROUTE .STK-MED ONE dexAMETHasone sod phosphate [Decadron] 4 mg .ROUTE .STK-MED ONE I personally reviewed relevant radiographs. Moderater OA, PF joint most affected, right knee Assessment & Plan Assessment & Plan (1) Osteoarthritis of right knee: Code(s): M17.11 - Unilateral primary osteoarthritis, right knee Plan: This is a 52 year old man with right knee OA. He has pain with daily activity, worse with standing, ambulation, or using stairs. His swelling has improved since his pain began, but he continues to be limited in his ADLs and ambulates with antalgia. He denies any prior treatment. I discussed his diagnosis and treatment options. I recommend PT & NSAIDs. I injected his right knee today, which he tolerated well, and ordered PT. He can follow up prn. Plan Scribed for Manolo Lofton MD by Amarjit Reilly, certified medical transcriptionist, on 05/24/23 at 11:25 AM, EST. Orders: Orders XR knee standing BI Today M25.569 - Pain in unspecified knee XR knee RT 2V Today M25.569 - Pain in unspecified knee PT Evaluation and Treatment Today M17.11 - Unilateral primary osteoarthritis, right knee Coding Level of Care Code New Pt Level 3 (43528) Diagnoses Osteoarthritis of right knee M17.11 CPT Codes Coding - 11257 Large joint: 97558 - Large joint ([id number])
[2023-05-24 11:11] VITALS: BMI 33.1
== END 2023-05-24 11:45 | disposition home or self-care (01) ==
PROVIDERS: PCP Internal Medicine; Visit Provider Orthopaedic Surgery
DX: M17.11 Unilateral primary osteoarthritis, right knee (principal)
CPT/HCPCS: 20610; 99203

== ENCOUNTER 2023-07-23 09:32 | Outpatient (AMB) | payer MEDICARE, MEDICAID, SELFPAY ==
[2023-07-23 09:36] VITALS: BP 142/84; PULSE 96; O2SAT 97; BMI 33.9
--- NOTE | 2023-07-23 09:36 | MHC.PC.OV ---
Vital Signs 07/23/23 09:36 Height 6 ft 1 in Weight 257 lb BMI 33.9 BP 142/84 H Blood Pressure Location Lt brachial Position Sitting Pulse 96 Pulse Source Pulse Oximeter Pulse Oximetry (%) 97 Oxygen Delivery Method Room Air Intake Visit Reasons: Annual exam Social Security Benefits Interviewer Required: No Inside Sales Representative: Not Required per policy Accompanied by: Self / Same As Patient Allergies No Known Allergies [No Known Allergies*] Allergy (Verified 07/23/23 09:37) Medication List - Last Reconciled 07/23/23 by Nicholas Daniels MD atorvastatin 80 mg PO DAILY folic acid 1 mg PO DAILY olanzapine 10 mg PO BEDTIME primidone 50 mg PO BID risankizumab-rzaa (Skyrizi) 150 mg subcut Q12W Tobacco use date assessed: 04/04/23 Dental Screening Dental Screen Date: 07/23/23 Did you have a dental visit in the last 12 months?: No Did you have a dental problem in the last 6 months where you did not have access to dental care?: No Was dental information given to patient?: Patient has dentist HPI Annual exam HPI Details hyperlipidemia and psoriasis; had a colonoscopy [facility] Medical History Obesity Hx of psychiatric hospitalization Anemia Psoriasis Insomnia Auditory hallucination Autism spectrum disorder Hyperlipidemia Surgical History H/O colonoscopy No pertinent past surgical history Family History Mother No problems noted. Father No problems noted. Housing: Condominium Alcohol intake: never Patient Tobacco Use Status: Never used Tobacco e-Cigarette/Vaping Use: Never Used Second Hand Smoke Exposure: No service: No Current occupational status: unemployed Cognitive needs: No Hearing needs: No Vision needs: Yes (glasses) Questionnaire Thrive Questionnaire Date Thrive assessed: 11/16/22 BARRETT-7 AMB Questionnaire BARRETT-7 Date BARRETT - 7 assessed: 11/16/22 Source: Developed by Drs. Tyrell Keen, Tiffany Brooks, Chucho Abdi and colleagues, with an educational halina from [employer]. Review of Systems Const Denies chills, Denies fatigue, Denies headache(s) and Denies weight loss Eyes Denies change in vision, Denies diplopia and Denies eye pain ENT Denies vertigo, Denies dizziness, Denies headache(s) and Denies nasal discharge Card Denies chest pain, Denies rapid heart rate and Denies dyspnea on exertion Resp Denies chest congestion, Denies cough, Denies pain with cough and Denies dyspnea on exertion GI Denies abdominal pain, Denies hematochezia and Denies change in bowel habits Musc Denies myalgias, Denies arthralgias and Denies joint swelling Skin/Breast Denies lesions and Denies unusual bruising Neuro Denies vertigo, Denies dizziness, Denies headache(s) and Denies focal weakness Endo Denies fatigue Physical exam (Primary Care) Vital Signs: Last Vital Signs Pulse 96 07/23/23 09:36 BP 142/84 H 07/23/23 09:36 Pulse Ox 97 07/23/23 09:36 Oxygen Delivery Method Room Air 07/23/23 09:36 BMI result Body Mass Index 33.9 Tobacco/Smoking Status: Tobacco use Status Tobacco use date assessed 04/04/23 07/23/23 09:37 Patient Tobacco Use Status Never used Tobacco 07/23/23 09:37 e-Cigarette/Vaping Use Never Used 07/23/23 09:37 Thrive Assessment: Date of Thrive Assessment Date Thrive assessed 11/16/22 07/23/23 09:37 Const General: cooperative, healthy appearing and no acute distress Orientation/consciousness: oriented to person, oriented to place and oriented to time [facility] Head: Yes normal to inspection, Yes normocephalic and Yes atraumatic Mouth: Normal oral and palatal mucosa present and tongue normal Throat: Yes posterior oropharynx normal and Yes uvula midline Eyes General: appearance normal, both eyes and all related structures Neck Neck: Yes normal visual inspection, Yes full ROM and Yes no lymphadenopathy Thyroid: Thyroid normal Carotids: normal carotid upstroke Chest Chest palpation & inspection: normal inspection of the chest Resp Effort & Inspection: normal respiratory effort and able to speak in complete sentences Auscultation: clear to auscultation bilaterally Cardio Jugular venous distension: no JVD Palpation: normal PMI Rate: regular rate Rhythm: regular rhythm Heart sounds: S1 normal heart sound present and S2 normal heart sound present GI Inspection: Yes normal to inspection Palpation (GI): Soft to palpation and No hepatosplenomegaly present Auscultation: normal bowel sounds General: Yes no CVA tenderness Back/Spine/Pelvis Back: no CVA tenderness Skin General skin exam: no rashes or lesions noted Neuro General: oriented to person, oriented to place and oriented to time Extrem General: Yes normal to inspection and Yes full ROM Assessment and Plan Assessment & Plan (1) Physical exam: Code(s): Z00.00 - Encounter for general adult medical examination without abnormal findings Plan: stable (2) Psoriasis: Code(s): L40.9 - Psoriasis, unspecified Plan: as per derm (3) Hyperlipidemia: Code(s): E78.5 - Hyperlipidemia, unspecified Plan: same rx Coding Level of Care Code Est Pt Prev Care 40-64y(65639) Diagnoses Physical exam Z00.00 Psoriasis L40.9 Hyperlipidemia E78.5
== END 2023-07-23 09:53 | disposition home or self-care (01) ==
PROVIDERS: Visit Provider Internal Medicine
DX: Z00.00 Encounter for general adult medical examination without abnormal findings (principal); L40.9 Psoriasis, unspecified; E78.5 Hyperlipidemia, unspecified
CPT/HCPCS: 99396

== ENCOUNTER 2023-08-21 09:34 | Outpatient (AMB) | payer MEDICARE, MEDICAID, SELFPAY ==
[2023-08-21 09:34] VITALS: BP 130/86; PULSE 77; O2SAT 100; BMI 31.4
--- NOTE | 2023-08-21 09:34 | A.OFFPC_ITS ---
Vital Signs 08/21/23 09:34 Height 6 ft 1 in Weight 238 lb BMI 31.4 BP 130/86 Blood Pressure Location Lt brachial Position Sitting Pulse 77 Pulse Source Pulse Oximeter Pulse Oximetry (%) 100 Oxygen Delivery Method Room Air Intake Visit Reasons: 3mth f/u Admissions Officer Required: No Allergies No Known Allergies [No Known Allergies*] Allergy (Verified 08/21/23 09:35) Medication List - Last Reconciled 08/21/23 by Nicholas Daniels MD atorvastatin 80 mg PO DAILY folic acid 1 mg PO DAILY olanzapine 10 mg PO BEDTIME primidone 50 mg PO BID risankizumab-rzaa (Skyrizi) 150 mg subcut Q12W Tobacco use date assessed: 08/21/23 HPI 3mth f/u HPI Details hyperlip on rx; doing well and compliant [facility] Medical History Obesity Hx of psychiatric hospitalization Anemia Psoriasis Insomnia Auditory hallucination Autism spectrum disorder Hyperlipidemia Surgical History H/O colonoscopy No pertinent past surgical history Family History Mother No problems noted. Father No problems noted. Social History Housing: Condominium Alcohol intake: never Patient Tobacco Use Status: Never used Tobacco e-Cigarette/Vaping Use: Never Used Second Hand Smoke Exposure: No service: No Current occupational status: unemployed Cognitive needs: No Hearing needs: No Vision needs: Yes (glasses) Questionnaire Thrive Questionnaire Date Thrive assessed: 11/16/22 AUDIT C Alcohol Use Questionnaire (AUDIT-C) 1. How often do you have a drink containing alcohol?: Never Total Score: 0 Score Reviewed/Action Taken: Yes BARRETT-7 AMB Questionnaire BARRETT-7 Date BARRETT - 7 assessed: 11/16/22 Source: Developed by Drs. Tyrell Keen, Tiffany Brooks, Chucho Abdi and colleagues, with an educational halina from [employer]. Review of Systems Const Denies chills, Denies headache(s) and Denies weight loss ENT Denies headache(s) Card Denies chest pain, Denies syncope, Denies irregular heart rhythm and Denies dyspnea Resp Denies chest congestion, Denies cough and Denies dyspnea GI Denies abdominal pain, Denies change in stool character, Denies nausea and Denies vomiting Musc Denies deformity and Denies joint swelling Neuro Denies syncope and Denies headache(s) Physical exam (Primary Care) Vital Signs: Last Vital Signs Pulse 77 08/21/23 09:34 BP 130/86 08/21/23 09:34 Pulse Ox 100 08/21/23 09:34 Oxygen Delivery Method Room Air 08/21/23 09:34 BMI result Body Mass Index 31.4 Tobacco/Smoking Status: Tobacco use Status Tobacco use date assessed 08/21/23 08/21/23 09:41 Patient Tobacco Use Status Never used Tobacco 08/21/23 09:41 e-Cigarette/Vaping Use Never Used 08/21/23 09:41 Thrive Assessment: Date of Thrive Assessment Date Thrive assessed 11/16/22 08/21/23 09:41 Const General: cooperative, comfortable, no acute distress and alert Neck Neck: Yes no lymphadenopathy Thyroid: Thyroid normal Resp Effort & Inspection: normal respiratory effort Auscultation: clear to auscultation bilaterally Percussion: percussion normal Cardio Jugular venous distension: no JVD Palpation: normal PMI Rate: regular rate Rhythm: regular rhythm Heart sounds: S1 normal heart sound present and S2 normal heart sound present GI Inspection: Yes normal to inspection Palpation (GI): No hepatosplenomegaly present Skin General skin exam: no rashes or lesions noted Extrem General: Yes no clubbing, cyanosis or edema Assessment and Plan Assessment & Plan (1) Hyperlipidemia: Code(s): E78.5 - Hyperlipidemia, unspecified Plan: stable; same rx Orders: Orders Influenza [id number] Immunization Today Z23 - Encounter for immunization Lipid Panel Today E78.5 - Hyperlipidemia, unspecified Medications: New flu vacc [id number] 6mos up(PF) 0.5 mL IM ONCE 0.5 mL 0RF Z23 - Encounter for immunization Coding Level of Care Code Est Pt Level 3 (40008) Diagnoses Hyperlipidemia E78.5
== END 2023-08-21 10:04 | disposition home or self-care (01) ==
PROVIDERS: PCP Internal Medicine; Visit Provider Internal Medicine
DX: E78.5 Hyperlipidemia, unspecified (principal); Z23 Encounter for immunization
CPT/HCPCS: 90471; 90686; 99213

== ENCOUNTER 2023-08-28 12:00 | Outpatient (RCR) | payer MEDICARE, MEDICAID, SELFPAY ==
--- NOTE | 2023-06-14 11:53 | MHC.PT.EP ---
[facility] [place] Office [place] Office [place] Office [address] [phone] F: [phone] F: [phone] F: [phone] F: [phone] Physical Therapy Plan of Care Date of Evaluation: 06/12/23 Date of Surgery: N/A Diagnosis: R knee OA Assessment: Pt is a 52yo male presenting with worsening R knee OA, abnormal gait and mobility. Skilled PT indicated to provide education for management of symptoms including rest/ice/elevation, gentle stretching, LE and core strengthening exercises, promote of full R knee AROM. Pt in agreement with POC and is motivated to participate in order to return to PLOF and work. Frequency and Duration: The patient will be seen 2x/week x 4 weeks Short Term Goals: 1. Increase R knee extension AROM to full in 2 weeks. 2. Pt will be I with phase 1 HEP for gastroc and HS stretching, and sidelying hip ex. 3. Pt will be able to complete sit<>stand from 25 inch high mat without use of UE's. 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 Pt will ambulate with normal weight shifting and heel-toe progression to normalize gait pattern. 2. Pt will report ability to stand x 2 hours during work without increased knee pain. 3. Pt will be able to ascend/descend stairs with B UE support to return to PLOF. Treatment Plan: Modalities to reduce pain, spasms and effusion. Manual therapy to restore motion and function. Therapeutic exercise to improve strength and flexibility. Neuromuscular re-education for posture and balance. Therapeutic activities to return to functional activities of daily living. Electronically signed by: Lizbeth Hanson PT, DPT Please sign and return to therapist. Thank you for your referral.
--- NOTE | 2023-08-28 13:36 | MHC.PT.DC ---
[facility] [place] Office [place] Office [place] Office [address] [phone] F: [phone] F: [phone] F: [phone] F: [phone] Physical Therapy Discharge Report Diagnosis: R knee OA Date of Surgery: N/A Date of Evaluation: 06/12/23 Date of Discharge: 08/28/23 Treatments to Date: 14 Cancellations to Date: 0 No Shows to Date: 0 Discharge Status: Independent with HEP Recommend MD Follow-up Discharge Summary: Pain R knee continues to limit mobility, and reduce quality of gait. Worsening of gait pattern noted on this date with minimal knee flexion R LE during swing phase. Pt recommended to use SPC for pain management of R knee arthritis, and recommended to f/u with ortho regarding lack of progress with PT. Despite his pain and abnormal mobility, he continues to work 40 hours/week, meeting the new STG, and LTG #2. He may also benefit from a new knee brace, and may need a script for a SPC. LEFS score worsened by 11 points from 73/80 to 61/80, indicating worsening in function. Electronically signed by: Lizbeth Hanson PT, DPT Please sign and return to therapist. Thank you for your referral.
== END 2023-08-28 13:37 | disposition home or self-care (01) ==
LOC: HO.PT 12:00
PROVIDERS: PCP Internal Medicine; Visit Provider Orthopaedic Surgery
DX: M17.11 Unilateral primary osteoarthritis, right knee (principal)
CPT/HCPCS: 97110; 97116; 97140; 97162; 97530

== ENCOUNTER 2023-09-06 10:06 | Outpatient (AMB) | payer MEDICARE, MEDICAID, SELFPAY ==
[2023-09-06 10:18] VITALS: BMI 31.4
--- NOTE | 2023-09-06 10:18 | A.OFFVIS_ITS ---
Intake Vital Signs 09/06/23 10:18 Height 6 ft 1 in Weight 238 lb BMI 31.4 Intake Visit Reasons: OV-Right knee injection-last inject. 05/24/23 Intake Note: Kenny is a 52 year old male who presents today for a follow up of his right knee, last injection was done in the right knee on 05/24/23. Patient reports that this injection only mildly helped but his pain has since returned. He would like to repeat injections today. Allergies No Known Allergies [No Known Allergies*] Allergy (Verified 08/21/23 09:35) HPI OV-Right knee injection-last inject. 05/24/23 HPI Details Kenny is a 52 year old woman with right knee OA. He was last seen, and injected, on 05/24/23, and sent for PT. He complains of pain with daily activity, worse with standing, walking, or descending stairs. He says his last injection was only mildly helpful, but his pain has returned and he would like a repeat injection today. [facility] Medical History Obesity Hx of psychiatric hospitalization Anemia Psoriasis Insomnia Auditory hallucination Autism spectrum disorder Hyperlipidemia Surgical History H/O colonoscopy No pertinent past surgical history Family History Mother No problems noted. Father No problems noted. Social History Housing: Condominium Alcohol intake: never Patient Tobacco Use Status: Never used Tobacco e-Cigarette/Vaping Use: Never Used Second Hand Smoke Exposure: No service: No Current occupational status: unemployed Cognitive needs: No Hearing needs: No Vision needs: Yes (glasses) Review of Systems Const All systems reviewed & are unremarkable except as noted in HPI and below Physical Exam Vital Signs: BMI result Body Mass Index 31.4 Const General: no acute distress, alert and awake Orientation/consciousness: patient oriented x3 HEENT Head: Yes normocephalic and Yes atraumatic Eyes EOM: EOMs intact bilaterally Resp Effort & Inspection: normal respiratory effort and able to speak in complete sentences Cardio Jugular venous distension: no JVD Skin General skin exam: turgor normal Rashes: no rashes Neuro General: patient oriented x3 Extrem Other: moderate effusion medial joint line ttp (mild) lateral retropetellar ttp abnormal gait (unrelated to knee) Psych Appearance: grossly normal Affect: normal affect Attitude: cooperative Office Procedures Joint Injection/Drain Joint Injection/Drain Details: Injected 1 mL of Decadron and 3 mL 1% lidocaine and 3 mL of 0.25% Marcaine. Site was prepped using aseptic technique. Patient tolerated the procedure well. Primary Site: right knee Coding - Large joint Procedure code (CPT) selection complete Results Reviewed Results Reviewed: I personally reviewed relevant radiographs. Predominantly PF OA Assessment & Plan Assessment & Plan (1) Osteoarthritis of right knee: Code(s): M17.11 - Unilateral primary osteoarthritis, right knee Plan: Injected right knee Rx written for cane and was given a anterior knee brace Plan Scribed for Manolo Lofton MD by Amarjit Reilly, medical radiation tech, on 09/06/23 at 10:22 AM, EST. Medications: New [cane] As directed 1 ea 0RF [cane] As directed 1 ea 0RF Coding Level of Care Code Est Pt Level 3 (95036) Diagnoses Osteoarthritis of right knee M17.11 CPT Codes Coding - Large joint: 16689 - Large joint ([id number])
== END 2023-09-06 10:49 | disposition home or self-care (01) ==
PROVIDERS: PCP Internal Medicine; Visit Provider Orthopaedic Surgery
DX: M17.11 Unilateral primary osteoarthritis, right knee (principal)
CPT/HCPCS: 20610; 99213

== ENCOUNTER → 2023-09-06 10:06 | Outpatient (BNVA) | payer MEDICARE, MEDICAID, SELFPAY | PROVIDERS: PCP Internal Medicine; Visit Provider Orthopaedic Surgery | DX: M17.11 Unilateral primary osteoarthritis, right knee (principal) | CPT/HCPCS: 20610; 99212; J0665; J1100 ==

== ENCOUNTER 2023-10-26 09:29 | Outpatient (REF) | payer MEDICARE, MEDICAID, SELFPAY ==
[2023-10-26 11:22] LABS: Cholesterol 135 mg/dL (<200); HDL Cholesterol 41 mg/dL (>40); LDL Cholesterol Calculated 85 mg/dL (<100); Triglycerides 47 mg/dL (<150); Uric Acid 6.2 mg/dL (3.4-7.0)
== END 2023-10-26 09:30 | disposition home or self-care (01) ==
LOC: HO.LAB 09:29
PROVIDERS: PCP Internal Medicine; Visit Provider Internal Medicine
DX: E78.5 Hyperlipidemia, unspecified (principal); M10.9 Gout, unspecified
CPT/HCPCS: 36415; 80061; 84550

== ENCOUNTER 2023-11-20 09:08 | Outpatient (AMB) | payer MEDICARE, MEDICAID, SELFPAY ==
[2023-11-20 09:10] VITALS: BP 124/82; PULSE 80; O2SAT 98; BMI 31.8
--- NOTE | 2023-11-20 09:10 | A.OFFPC_ITS ---
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 per policy Accompanied by: Self / Same As Patient Allergies No Known Allergies [No Known Allergies*] Allergy (Verified 11/20/23 09:11) Medication List - Last Reconciled 11/20/23 by Nicholas Daniels MD atorvastatin 80 mg PO DAILY [cane As directed] folic acid 1 mg PO DAILY olanzapine 10 mg PO BEDTIME primidone 50 mg PO BID risankizumab-rzaa (Skyrizi) 150 mg subcut Q12W Tobacco use date assessed: 11/20/23 Dental Screening Dental Screen Date: 11/20/23 Did you have a dental visit in the last 12 months?: No Did you have a dental problem in the last 6 months where you did not have access to dental care?: No Was dental information given to patient?: Patient has dentist HPI 3 month f/u HPI Details hyperlipidemia on rx; doing well; compliant [facility] Medical History Obesity Hx of psychiatric hospitalization Anemia Psoriasis Insomnia Auditory hallucination Autism spectrum disorder Hyperlipidemia Surgical History H/O colonoscopy No pertinent past surgical history Family History Mother No problems noted. Father No problems noted. Social History Housing: Condominium Alcohol intake: never Patient Tobacco Use Status: Never used Tobacco e-Cigarette/Vaping Use: Never Used Second Hand Smoke Exposure: No service: No Current occupational status: unemployed Cognitive needs: No Hearing needs: No Vision needs: Yes (glasses) Questionnaire PHQ-9 Over the last 2 weeks, how often have you been bothered by any of the following problems? 1. Little interest or pleasure in doing things: not at all 2. Feeling down, depressed, or hopeless: not at all 3. Trouble falling or staying asleep, or sleeping too much: not at all 4. Feeling tired or having little energy: not at all 5. Poor appetite or overeating: not at all 6. Feeling bad about yourself - or that you are a failure or have let yourself or your family down: not at all 7. Trouble concentrating on things, such as reading the newspaper or watching television: not at all 8. Moving or speaking so slowly that other people could have noticed. Or the opposite - being so fidgety or restless that you have been moving around a lot more than usual: not at all 9. Thoughts that you would be better off or of hurting yourself in some way: not at all Total score: 0 Depression Screening Interpretation: Negative Depression Screening Done: Yes Source: Developed by Drs. Tyrell Keen, Tiffany Brooks, Chucho Abdi and colleagues, with an educational halina from [employer]. Thrive Questionnaire Date Thrive assessed: 11/20/23 I am a: Patient What is your living situation today?: I have a steady place to live Within the past 12 months, did the food you bought not last and you didn't have the money to get more?: Never true Within the past 12 months, did you worry whether your food would run out before you got money to buy more?: Never true Do you have trouble paying for medicines?: No Do you have trouble getting transportation to medical appointments?: No Do you have trouble paying your heating and electricity bill?: No Do you have trouble taking care of your child, family member or friend?: No Do you have trouble with day-to-day activities such as bathing, preparing meals, shopping, managing finances, etc.?: No Are you currently unemployed and looking for a job?: No Are you interested in more education?: No Please select the resources that you would like help with: None THRIVE Score: 0 AUDIT C Alcohol Use Questionnaire (AUDIT-C) 1. How often do you have a drink containing alcohol?: Never Total Score: 0 Score Reviewed/Action Taken: Yes BARRETT-7 AMB Questionnaire BARRETT-7 Date BARRETT - 7 assessed: 11/20/23 Feeling nervous, anxious, or on edge: 0 = Not at all Not being able to stop or control worryin = Not at all Worrying too much about different things: 0 = Not at all Trouble relaxin = Not at all Being so restless that it is hard to sit still: 0 = Not at all Becoming easily annoyed or irritable: 0 = Not at all Feeling afraid as if something awful might happen: 0 = Not at all Total BARRETT-7 score (0-4 normal; 5-9 mild; 10-14 moderate; 15-21 severe): 0 Source: Developed by Drs. Tyrell Keen, Tiffany Brooks, Chucho Abdi and colleagues, with an educational halina from [employer]. Review of Systems Const Denies chills, Denies headache(s) and Denies weight loss ENT Denies headache(s) Card Denies chest pain, Denies syncope, Denies irregular heart rhythm and Denies dyspnea Resp Denies chest congestion, Denies cough and Denies dyspnea GI Denies abdominal pain, Denies change in stool character, Denies nausea and Denies vomiting Musc Denies deformity and Denies joint swelling Neuro Denies syncope and Denies headache(s) Physical exam (Primary Care) Vital Signs: Last Vital Signs Pulse 80 11/20/23 09:10 BP 124/82 11/20/23 09:10 Pulse Ox 98 11/20/23 09:10 Oxygen Delivery Method Room Air 11/20/23 09:10 BMI result Body Mass Index 31.8 Tobacco/Smoking Status: Tobacco use Status Tobacco use date assessed 11/20/23 11/20/23 09:18 Patient Tobacco Use Status Never used Tobacco 11/20/23 09:18 e-Cigarette/Vaping Use Never Used 11/20/23 09:18 PHQ-9: PHQ-9 Score PHQ-9: Total score 0 11/20/23 09:18 Depression Screening Interpretation: Negative Thrive Assessment: Date of Thrive Assessment Date Thrive assessed 11/20/23 11/20/23 09:18 Const General: cooperative, comfortable, no acute distress and alert Neck Neck: Yes no lymphadenopathy Thyroid: Thyroid normal Resp Effort & Inspection: normal respiratory effort Auscultation: clear to auscultation bilaterally Percussion: percussion normal Cardio Jugular venous distension: no JVD Palpation: normal PMI Rate: regular rate Rhythm: regular rhythm Heart sounds: S1 normal heart sound present and S2 normal heart sound present GI Inspection: Yes normal to inspection Palpation (GI): No hepatosplenomegaly present Skin General skin exam: no rashes or lesions noted Extrem General: Yes no clubbing, cyanosis or edema Assessment and Plan Assessment & Plan (1) Hyperlipidemia: Code(s): E78.5 - Hyperlipidemia, unspecified Plan: stable; same rx Orders: Orders Lipid Panel Today E78.5 - Hyperlipidemia, unspecified Coding Level of Care Code Est Pt Level 3 (29939) Diagnoses Hyperlipidemia E78.5
== END 2023-11-20 09:28 | disposition home or self-care (01) ==
PROVIDERS: PCP Internal Medicine; Visit Provider Internal Medicine
DX: E78.5 Hyperlipidemia, unspecified (principal)
CPT/HCPCS: 99213

== ENCOUNTER 2023-12-06 10:04 | Outpatient (AMB) | payer MEDICARE, MEDICAID, SELFPAY ==
--- NOTE | 2023-12-06 10:09 | MHC.OFFVIS ---
Intake Vital Signs 12/06/23 10:10 Height 6 ft 1 in Weight 241 lb BMI 31.8 Intake Visit Reasons: INJ -Right knee injection 09/06/22 Intake Note: Kenny is a 52 year old male who presents today for a follow up of his right knee, last injection was done in the right knee on 09/06/2023. He reports that he would like to repeat injection today Allergies No Known Allergies [No Known Allergies*] Allergy (Verified 11/20/23 09:11) HPI INJ -Right knee injection 09/06/22 HPI Details Kenny is a 52 year old male with right knee patellofemoral osteoarthritis. He works at [employer] and complains of pain. I injected his knee 3 months ago and he stated it gave him less than a week's worth of relief. He also has a knee sleeve and has been doing physical therapy none of which seemed to help very much. [facility] Medical History Obesity Hx of psychiatric hospitalization Anemia Psoriasis Insomnia Auditory hallucination Autism spectrum disorder Hyperlipidemia Surgical History H/O colonoscopy No pertinent past surgical history Family History Mother No problems noted. Father No problems noted. Social History Housing: Condominium Alcohol intake: never Patient Tobacco Use Status: Never used Tobacco e-Cigarette/Vaping Use: Never Used Second Hand Smoke Exposure: No service: No Current occupational status: unemployed Cognitive needs: No Hearing needs: No Vision needs: Yes (glasses) Physical Exam Vital Signs: BMI result Body Mass Index 31.8 Extrem Other: Retropatellar tenderness to palpation lateral patellar facet Mild effusion Assessment & Plan Assessment & Plan (1) Osteoarthritis of patellofemoral joint: Code(s): M17.10 - Unilateral primary osteoarthritis, unspecified knee Plan: This is a 53-year-old gentleman with patellofemoral osteoarthritis of the right knee. Steroid injections, bracing and physical therapy have been minimally helpful at best. Recommend a viscosupplementation for his right knee. He has not a surgical candidate at this time. Coding Level of Care Code Est Pt Level 3 (24659) Diagnoses Osteoarthritis of patellofemoral joint M17.10
[2023-12-06 10:10] VITALS: BMI 31.8
== END 2023-12-06 10:39 | disposition home or self-care (01) ==
PROVIDERS: PCP Internal Medicine; Visit Provider Orthopaedic Surgery
DX: M17.11 Unilateral primary osteoarthritis, right knee (principal)
CPT/HCPCS: 99213

== ENCOUNTER → 2023-12-06 10:04 | Outpatient (BNVA) | payer MEDICARE, MEDICAID, SELFPAY | PROVIDERS: PCP Internal Medicine; Visit Provider Orthopaedic Surgery | DX: M17.11 Unilateral primary osteoarthritis, right knee (principal) | CPT/HCPCS: 99212 ==

== ENCOUNTER 2023-12-31 10:43 | Outpatient (AMB) | payer MEDICARE, MEDICAID, SELFPAY ==
[2023-12-31 11:01] VITALS: BMI 31.8
--- NOTE | 2023-12-31 11:01 | MHC.OFFVIS ---
Vital Signs 12/31/23 11:01 Height 6 ft 1 in Weight 241 lb BMI 31.8 Intake Visit Reasons: INJ- RT knee durolane inj Intake Note: Dedra is a 53 year old male who presents today for a Right knee Durolane injection. Allergies No Known Allergies [No Known Allergies*] Allergy (Verified 11/20/23 09:11) HPI HPI INJ- RT knee durolane inj: Details: Dedra is a 53 year old male who presents today for a Right knee Durolane injection. [facility] Medical History Obesity Hx of psychiatric hospitalization Anemia Psoriasis Insomnia Auditory hallucination Autism spectrum disorder Hyperlipidemia Surgical History H/O colonoscopy No pertinent past surgical history Family History Mother No problems noted. Father No problems noted. Social History Housing: Condominium Alcohol intake: never Patient Tobacco Use Status: Never used Tobacco e-Cigarette/Vaping Use: Never Used Second Hand Smoke Exposure: No service: No Current occupational status: unemployed Cognitive needs: No Hearing needs: No Vision needs: Yes (glasses) Physical Exam Vital Signs: BMI result Body Mass Index 31.8 Extrem Other: skin c/d/i right knee +1 effusion Office Procedures Joint Injection/Drain Joint Injection/Drain Details: Injected Durolane. Site was prepped using aseptic technique. Patient tolerated the procedure well. Primary Site: right knee Approach Used: anterolateral Coding - Large joint Procedure code (CPT) selection complete Assessment & Plan Assessment & Plan (1) Osteoarthritis of patellofemoral joint: Code(s): M17.10 - Unilateral primary osteoarthritis, unspecified knee Category: Medical Plan: This is a 53-year-old gentleman with patellofemoral osteoarthritis of the right knee. Durolane injected. f/u 3 mo Plan I injected his right knee with Durolane. Coding Level of Care Code Est Pt Level 2 (00751) Diagnoses Osteoarthritis of patellofemoral joint M17.10 CPT Codes Coding - Large joint: 87331 - Large joint ([id number])
== END 2023-12-31 11:28 | disposition home or self-care (01) ==
LOC: HO.HOS 10:43
PROVIDERS: PCP Internal Medicine; Visit Provider Orthopaedic Surgery
DX: M17.10 Unilateral primary osteoarthritis, unspecified knee (principal)
CPT/HCPCS: 20610

== ENCOUNTER → 2023-12-31 10:43 | Outpatient (BNVA) | payer MEDICARE, MEDICAID, SELFPAY | PROVIDERS: PCP Internal Medicine; Visit Provider Orthopaedic Surgery | DX: M17.11 Unilateral primary osteoarthritis, right knee (principal) | CPT/HCPCS: 20610; J7318 ==

== ENCOUNTER 2024-02-05 13:07 | Outpatient (REF) | payer MEDICARE, MEDICAID, SELFPAY ==
[2024-02-05 14:26] LABS: Cholesterol 129 mg/dL (<200); HDL Cholesterol 44 mg/dL (>40); LDL Cholesterol Calculated 64 mg/dL (<100); Triglycerides 107 mg/dL (<150)
== END 2024-02-05 13:08 | disposition home or self-care (01) ==
LOC: HO.LAB 13:07
PROVIDERS: PCP Internal Medicine; Visit Provider Internal Medicine
DX: E78.5 Hyperlipidemia, unspecified (principal)
CPT/HCPCS: 36415; 80061

== ENCOUNTER 2024-02-20 10:45 | Outpatient (AMB) | payer MEDICARE, MEDICAID, SELFPAY ==
[2024-02-20 10:46] VITALS: BP 130/86; PULSE 77; O2SAT 98; BMI 29.6
--- NOTE | 2024-02-20 10:46 | MHC.PC.OV ---
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 Father No problems noted. Social History Housing: Condominium Alcohol intake: never Patient Tobacco Use Status: Never used Tobacco e-Cigarette/Vaping Use: Never Used Second Hand Smoke Exposure: No service: No Current occupational status: unemployed Cognitive needs: No Hearing needs: No Vision needs: Yes (glasses) Questionnaire Thrive Questionnaire Date Thrive assessed: 11/20/23 BARRETT-7 AMB Questionnaire BARRETT-7 Date BARRETT - 7 assessed: 11/20/23 Source: Developed by Drs. Tyrell Keen, Tiffany Brooks, Chucho Abdi and colleagues, with an educational halina from [email or web address]. Review of Systems Const Denies chills, Denies headache(s) and Denies weight loss ENT Denies headache(s) Card Denies chest pain, Denies syncope, Denies irregular heart rhythm and Denies dyspnea Resp Denies chest congestion, Denies cough and Denies dyspnea GI Denies abdominal pain, Denies change in stool character, Denies nausea and Denies vomiting Musc Denies deformity and Denies joint swelling Neuro Denies syncope and Denies headache(s) Physical exam (Primary Care) Vital Signs: Last Vital Signs Pulse 77 02/20/24 10:46 BP 130/86 02/20/24 10:46 Pulse Ox 98 02/20/24 10:46 Oxygen Delivery Method Room Air 02/20/24 10:46 BMI result Body Mass Index 29.6 Tobacco/Smoking Status: Tobacco use Status Tobacco use date assessed 11/20/23 02/20/24 10:49 Patient Tobacco Use Status Never used Tobacco 02/20/24 10:49 e-Cigarette/Vaping Use Never Used 02/20/24 10:49 Thrive Assessment: Date of Thrive Assessment Date Thrive assessed 11/20/23 02/20/24 10:49 Const General: cooperative, comfortable, no acute distress and alert Neck Neck: Yes no lymphadenopathy Thyroid: Thyroid normal Resp Effort & Inspection: normal respiratory effort Auscultation: clear to auscultation bilaterally Percussion: percussion normal Cardio Jugular venous distension: no JVD Palpation: normal PMI Rate: regular rate Rhythm: regular rhythm Heart sounds: S1 normal heart sound present and S2 normal heart sound present GI Inspection: Yes normal to inspection Palpation (GI): No hepatosplenomegaly present Skin General skin exam: no rashes or lesions noted Extrem General: Yes no clubbing, cyanosis or edema Assessment and Plan Assessment & Plan (1) Hyperlipidemia: Comment: stable; same rx Code(s): E78.5 - Hyperlipidemia, unspecified Orders: Orders Lipid Panel Today Z13.220 - Encounter for screening for lipoid disorders Coding Level of Care Code Est Pt Level 3 (35883) Diagnoses Hyperlipidemia E78.5
== END 2024-02-20 10:56 | disposition home or self-care (01) ==
PROVIDERS: PCP Internal Medicine; Visit Provider Internal Medicine
DX: E78.5 Hyperlipidemia, unspecified (principal)
CPT/HCPCS: 99213

== ENCOUNTER 2024-04-03 08:49 | Outpatient (REF) | payer MEDICARE, MEDICAID, SELFPAY ==
--- NOTE | ~2024-04-03 | XR_ITS ---
EXAMINATION: XR PELVIS CLINICAL INFORMATION: Pain unspecified hip. COMPARISON: None available. TECHNIQUE: AP view of the pelvis. FINDINGS: No fracture, dislocation, or suspicious focal bony abnormality. Severe arthritic changes in the left hip joint, with complete joint space loss superiorly, mild subchondral collapse of the articular surface of the right femoral head with associated irregularity, possibly AVN with collapse. Hypertrophic spurring of the subcapital regions, and superior and inferior acetabular regions are present to a significant degree with associated sclerosis and subchondral cystic change. Moderate to severe arthritis in the right hip joint with axial joint space loss, prominent subcapital osteophytes and hypertrophic spurring of the superior and inferior acetabulum. No subchondral abnormalities of the femoral head. Enthesophytes present throughout the iliac bones and gluteal attachments, hamstrings attachments, and greater trochanters bilaterally. Degenerative changes of the lower lumbar spine to an advanced degree. Mild degenerative changes in both SI joints. Soft tissues appear normal. XR/XR pelvis 1-2V IMPRESSION: 1. Severe degenerative arthritis of the left hip joint with mild subchondral collapse of the femoral head medially. Complete joint space loss superiorly. 2. Moderate to severe degenerative arthritis of the right hip joint. 3. Enthesopathic changes suggestive of underlying DISH. Electronically signed by: Sandoval Lizarraga MD 05/16/2024 05:11 PM EDT
== END 2024-04-03 08:50 | disposition home or self-care (01) ==
LOC: HO.HOSX 08:49
PROVIDERS: PCP Internal Medicine; Visit Provider Orthopaedic Surgery
DX: M25.559 Pain in unspecified hip (principal); M16.0 Bilateral primary osteoarthritis of hip; M47.816 Spondylosis without myelopathy or radiculopathy, lumbar region; F84.0 Autistic disorder
CPT/HCPCS: 72170; 99212

== ENCOUNTER 2024-04-03 08:49 | Outpatient (AMB) | payer MEDICARE, MEDICAID, SELFPAY ==
--- NOTE | 2024-04-03 08:50 | MHC.OFFVIS ---
Intake Visit Reasons: OV-RT knee durolane inj-follow up Intake Note: Kenny is a 53 year old male who presents today for a follow up of his right knee s/p Durolane injection on 12/31/23. Patient reports that he is doing well, the Durolane injection has been helpful but he is still feeling pain. He is not walking with a normal gait, he tends to drags the right leg and has limited ROM of the right knee. Allergies No Known Allergies [No Known Allergies*] Allergy (Verified 04/03/24 08:53) HPI HPI OV-RT knee durolane inj-follow up: Details: Kenny is a 53 year old male who presents today for a follow up of his right knee s/p Durolane injection on 12/31/23. Patient is here today with his cousin who is 1 of his caregivers. 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 He states his knee continues to bother him. The pain is somewhat vague however and his caregiver remarks that he is walking with a significant gait disturbance and this seems to be affecting him more and more. He is no longer doing things he used to do like a walk recreationally or leave the house if significant activity is involved. [facility]ACED BY [facility] Medical History (Updated 04/03/24 @ 10:05 by Manolo Lofton MD) Obesity Hx of psychiatric hospitalization Anemia Psoriasis Insomnia Auditory hallucination Autism spectrum disorder Hyperlipidemia Surgical History H/O colonoscopy No pertinent past surgical history Family History Mother No problems noted. Father No problems noted. Social History Housing: Condominium Alcohol intake: never Patient Tobacco Use Status: Never used Tobacco e-Cigarette/Vaping Use: Never Used Second Hand Smoke Exposure: No service: No Current occupational status: unemployed Cognitive needs: No Hearing needs: No Vision needs: Yes (glasses) Physical Exam Extrem Other: On exam his hips are very stiff and he has positive impingement signs left greater than right. It is difficult to ascertain lower extremity strength as he does appear to have 3-4 beats of clonus bilaterally but no hyperreflexia and no focal weakness but his ability to follow directions makes examination of his muscle strength difficult. Most notably however is his extremely poor gait mechanics that have worsened since I have been seeing him. Walks with severe right Trendelenburg gait and moderate left Trendelenburg gait. His feet are externally rotated. Results Reviewed Results Reviewed: I personally reviewed relevant radiographs. On review of his pelvic radiographs he has severe bilateral hip osteoarthritis with the left worse than the right. He also has lumbar DJD. Assessment & Plan Assessment & Plan (1) Bilateral hip joint arthritis: Code(s): M16.0 - Bilateral primary osteoarthritis of hip Category: Medical Plan: Pratik has severe bilateral hip DJD. His personality (autism spectrum disorder) does appear to complicate his ability describe his symptoms but I and his caregiver clearly witness a marked degeneration in his ability to walk normally. I think this is most likely secondary to his severe hip arthritis and I do think he would benefit from hip replacement. He wants to continue working full-time he lives alone and owns his own home and is highly functional. I do think in addition he would benefit from an injection in the hip that were not going to immediately operate on in this case his right. He may also have some weakness that is hard to interpret because of his communication style so I will order an MRI of his lumbar spine. (2) DJD (degenerative joint disease), lumbar: Code(s): M47.816 - Spondylosis without myelopathy or radiculopathy, lumbar region Category: Medical Plan: MRI (3) Autism spectrum disorder: Code(s): F84.0 - Autistic disorder Category: Medical Plan: Orders: Orders XR pelvis 1-2V Today M25.559 - Pain in unspecified hip Coding Level of Care Code Est Pt Level 4 (45858) Diagnoses Bilateral hip joint arthritis M16.0 DJD (degenerative joint disease), lumbar M47.816 Autism spectrum disorder F84.0
== END 2024-04-03 10:03 | disposition home or self-care (01) ==
PROVIDERS: PCP Internal Medicine; Visit Provider Orthopaedic Surgery
DX: M16.0 Bilateral primary osteoarthritis of hip (principal); M47.816 Spondylosis without myelopathy or radiculopathy, lumbar region; F84.0 Autistic disorder
CPT/HCPCS: 99214

== ENCOUNTER → 2024-04-03 09:02 | Outpatient (BNV) | payer MEDICARE, MEDICAID, SELFPAY | PROVIDERS: PCP Internal Medicine; Visit Provider Radiology Diagnostic Radiology | DX: M16.0 Bilateral primary osteoarthritis of hip (principal) | CPT/HCPCS: 72170 ==

== ENCOUNTER 2024-05-22 10:08 | Outpatient (AMB) | payer MEDICARE, MEDICAID, SELFPAY ==
[2024-05-22 10:13] VITALS: BP 136/88; PULSE 76; O2SAT 97; BMI 31.5
--- NOTE | 2024-05-22 10:13 | MHC.PC.OV ---
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 Accompanied by: Self / Same As Patient Allergies No Known Allergies [No Known Allergies*] Allergy (Verified 05/22/24 10:18) Medication List - Last Reconciled 05/22/24 by Nicholas Daniels MD atorvastatin 80 mg PO DAILY [cane As directed] folic acid 1 mg PO DAILY olanzapine 10 mg PO BEDTIME primidone 50 mg PO BID risankizumab-rzaa (Skyrizi) 150 mg subcut Q12W Tobacco use date assessed: 11/20/23 Dental Screening Dental Screen Date: 11/20/23 HPI 3 Month F/U HPI Details hyperlipidemia on rx; doing well and compliant [facility] Medical History (Updated 04/03/24 @ 10:05 by Manolo Lofton MD) Obesity Hx of psychiatric hospitalization Anemia Psoriasis Insomnia Auditory hallucination Autism spectrum disorder Hyperlipidemia Surgical History H/O colonoscopy No pertinent past surgical history Family History Mother No problems noted. Father No problems noted. Social History Housing: Condominium Alcohol intake: never Patient Tobacco Use Status: Never used Tobacco Tobacco use type: Cigarette e-Cigarette/Vaping Use: Never Used Second Hand Smoke Exposure: No service: No Current occupational status: unemployed Cognitive needs: No Hearing needs: No Vision needs: Yes (glasses) Questionnaire PHQ-9 Over the last 2 weeks, how often have you been bothered by any of the following problems? 1. Little interest or pleasure in doing things: not at all 2. Feeling down, depressed, or hopeless: not at all 3. Trouble falling or staying asleep, or sleeping too much: not at all 4. Feeling tired or having little energy: not at all 5. Poor appetite or overeating: not at all 6. Feeling bad about yourself - or that you are a failure or have let yourself or your family down: not at all 7. Trouble concentrating on things, such as reading the newspaper or watching television: not at all 8. Moving or speaking so slowly that other people could have noticed. Or the opposite - being so fidgety or restless that you have been moving around a lot more than usual: not at all 9. Thoughts that you would be better off or of hurting yourself in some way: not at all Total score: 0 Depression Screening Interpretation: Negative Depression Screening Done: Yes Source: Developed by Drs. Tyrell Keen, Tiffany Brooks, Chucho Abdi and colleagues, with an educational halina from [email or web address]. Thrive Questionnaire Date Thrive assessed: 11/20/23 Are you currently unemployed and looking for a job?: No AUDIT C Alcohol Use Questionnaire (AUDIT-C) 1. How often do you have a drink containing alcohol?: Never Total Score: 0 Score Reviewed/Action Taken: Yes BARRETT-7 AMB Questionnaire BARRETT-7 Date BARRETT - 7 assessed: 11/20/23 Source: Developed by Drs. Tyrell Keen, Tiffany Brooks, Chucho Abdi and colleagues, with an educational halina from [employer]. Review of Systems Const Denies chills, Denies headache(s) and Denies weight loss ENT Denies headache(s) Card Denies chest pain, Denies syncope, Denies irregular heart rhythm and Denies dyspnea Resp Denies chest congestion, Denies cough and Denies dyspnea GI Denies abdominal pain, Denies change in stool character, Denies nausea and Denies vomiting Musc Denies deformity and Denies joint swelling Neuro Denies syncope and Denies headache(s) Physical exam (Primary Care) Vital Signs: Last Vital Signs Pulse 76 05/22/24 10:13 BP 136/88 05/22/24 10:13 Pulse Ox 97 05/22/24 10:13 Oxygen Delivery Method Room Air 05/22/24 10:13 BMI result Body Mass Index 31.5 Tobacco/Smoking Status: Tobacco use Status Tobacco use date assessed 11/20/23 05/22/24 10:18 Patient Tobacco Use Status Never used Tobacco 05/22/24 10:18 Tobacco use type Cigarette 05/22/24 10:18 e-Cigarette/Vaping Use Never Used 05/22/24 10:18 PHQ-9: PHQ-9 Score PHQ-9: Total score 0 05/22/24 10:18 Depression Screening Interpretation: Negative Thrive Assessment: Date of Thrive Assessment Date Thrive assessed 11/20/23 05/22/24 10:18 Const General: cooperative, comfortable, no acute distress and alert Neck Neck: Yes no lymphadenopathy Thyroid: Thyroid normal Resp Effort & Inspection: normal respiratory effort Auscultation: clear to auscultation bilaterally Percussion: percussion normal Cardio Jugular venous distension: no JVD Palpation: normal PMI Rate: regular rate Rhythm: regular rhythm Heart sounds: S1 normal heart sound present and S2 normal heart sound present GI Inspection: Yes normal to inspection Palpation (GI): No hepatosplenomegaly present Skin General skin exam: no rashes or lesions noted Extrem General: Yes no clubbing, cyanosis or edema Assessment and Plan Assessment & Plan (1) Hyperlipidemia: Comment: stable; same rx Code(s): E78.5 - Hyperlipidemia, unspecified Plan: stable Coding Level of Care Code Est Pt Level 3 (57680) Diagnoses Hyperlipidemia E78.5
== END 2024-05-22 10:25 | disposition home or self-care (01) ==
PROVIDERS: PCP Internal Medicine; Visit Provider Internal Medicine
DX: E78.5 Hyperlipidemia, unspecified (principal)

== ENCOUNTER → 2024-05-22 10:08 | Outpatient (BNVA) | payer MEDICARE, MEDICAID, SELFPAY | PROVIDERS: PCP Internal Medicine; Visit Provider Internal Medicine | DX: E78.5 Hyperlipidemia, unspecified (principal) | CPT/HCPCS: 99212 ==

== ENCOUNTER 2024-05-27 10:52 | Outpatient (REF) | payer MEDICARE, MEDICAID, SELFPAY ==
[2024-05-27 12:15] LABS: Cholesterol 126 mg/dL (<200); HDL Cholesterol 38 mg/dL (>40); LDL Cholesterol Calculated 74 mg/dL (<100); Triglycerides 72 mg/dL (<150)
== END 2024-05-27 10:53 | disposition home or self-care (01) ==
LOC: HO.LAB 10:52
PROVIDERS: PCP Internal Medicine; Visit Provider Internal Medicine
DX: Z13.220 Encounter for screening for lipoid disorders (principal)
CPT/HCPCS: 36415; 80061

== ENCOUNTER → 2024-06-03 13:08 | Outpatient (BNVA) | payer MEDICARE, MEDICAID, SELFPAY | PROVIDERS: PCP Internal Medicine | DX: Z01.818 Encounter for other preprocedural examination (principal) ==

== ENCOUNTER 2024-06-03 15:19 | Outpatient (AMB) | payer MEDICARE, MEDICAID, SELFPAY ==
--- NOTE | 2024-06-03 15:22 | AM.OFFWIN_ITS ---
Intake Vital Signs 06/03/24 15:25 Height 6 ft 1 in Weight 239 lb BMI 31.5 BP 126/92 H Blood Pressure Location Rt brachial Position Sitting Pulse 74 Pulse Source Pulse Oximeter Pulse Oximetry (%) 98 Oxygen Delivery Method Room Air Intake Visit Reasons: EP Black & blue on his left big toe nail came out Intake Note: Patient here for black and blue on left big toe which he noticed about 2-3 weeks ago. 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 Father No problems noted. Social History Housing: Condominium Alcohol intake: never Patient Tobacco Use Status: Never used Tobacco Tobacco use type: Cigarette e-Cigarette/Vaping Use: Never Used Second Hand Smoke Exposure: No service: No Current occupational status: unemployed Cognitive needs: No Hearing needs: No Vision needs: Yes (glasses) Review of Systems Const Denies chills and Denies fever(s) Musc Reports joint swelling (slight edema lt great toe), Denies limited range of motion and Denies numbness Skin/Breast Reports other (skin discoloration around nailbed Lt great toe) Neuro Denies numbness and Denies paresthesias Physical Exam Vital Signs: Last Vital Signs Pulse 74 06/03/24 15:25 BP 126/92 H 06/03/24 15:25 Pulse Ox 98 06/03/24 15:25 Oxygen Delivery Method Room Air 06/03/24 15:25 BMI result Body Mass Index 31.5 General: Non-toxic, NAD. Speaking full sentences. Skin: Warm dry throughout Lt 1st digit foot: + dark discoloration around proximal nailbed and medial nail. There is no top nail but notable undernail growth present. Non-tender to palpation of 1st digit Lt foot. No cuticle disruption. No wounds, FB, warmth, drainge expressed. Plantar surface without FB or abnormality noted. Eye: EOMI Respiratory: No respiratory distress or stridor Cardiac: DP pulse intact LLE. MSK: Full ROM extremities. No tendrness to palpation bones L foot Neurology: A/O. No aphasia or facial droop. Psych: Good mood and affect Assessment & Plan Assessment & Plan (1) Great toe pain: Code(s): M79.676 - Pain in unspecified toe(s) Qualifiers: Laterality: left Qualified Code(s): M79.675 - Pain in left toe(s) Plan: Patient seen and evaluated. Xray Lt grat toe: no fx noted. + calcifications. No oestomyelitis noted Pt was informed discoloration will improve over time Given topical antibiotic to ensure no infection Monitor area and call with concerns of changed No eschar or concern necrosis. Patient and caregiver gave verbal understanding and had no additional questions or concerns at time of discharge All questions answered Orders: Orders XR toe LT min 2V Today M79.676 - Pain in unspecified toe(s) Medications: New mupirocin 2% 1 appl topical BID 22 grams 0RF 2 weeks Coding Level of Care Code Est Pt Level 3 (51160) Diagnoses Pain of left great toe M79.675 Laterality: left
[2024-06-03 15:25] VITALS: BP 126/92; PULSE 74; O2SAT 98; BMI 31.5
== END 2024-06-03 16:16 | disposition home or self-care (01) ==
PROVIDERS: PCP Internal Medicine; Visit Provider Physician Assistant
DX: M79.675 Pain in left toe(s) (principal)

== ENCOUNTER 2024-06-03 15:42 | Outpatient (REF) | payer MEDICARE, MEDICAID, SELFPAY ==
--- NOTE | ~2024-06-03 | XR_ITS ---
EXAMINATION: XR TOES, LEFT CLINICAL INFORMATION: Pain in toe COMPARISON: None available. TECHNIQUE: 3 views of the left toes were obtained. FINDINGS: Prominent bony spurs project off the distal phalanx of the first toe at the IP joint is intact and there is no fracture or dislocation or destructive process. There is mild to moderate degenerative changes incidentally seen at the first MTP joint. The other MTP joints are preserved. XR/XR toe LT min 2V IMPRESSION: Degenerative change first MTP joint. No fracture or destructive process. Electronically signed by: Yunier Rocha MD 06/04/2024 02:26 PM EDT
== END 2024-06-03 15:43 | disposition home or self-care (01) ==
LOC: HO.HMGCX 15:42
PROVIDERS: PCP Internal Medicine; Visit Provider Physician Assistant
DX: M79.675 Pain in left toe(s) (principal)
CPT/HCPCS: 73660; 99212

== ENCOUNTER → 2024-06-24 13:23 | Outpatient (BNV) | payer MEDICARE, MEDICAID, SELFPAY | PROVIDERS: Admitting Provider Orthopaedic Surgery; PCP Internal Medicine; Visit Provider Internal Medicine | DX: R00.1 Bradycardia, unspecified (principal) | CPT/HCPCS: 93010 ==

== ENCOUNTER 2024-06-27 13:35 | Outpatient (REF) | payer MEDICARE, MEDICAID, SELFPAY ==
[2024-06-27 14:25] LABS: MANUAL DIFF FLAG NO
[2024-06-27 15:12] LABS: Basophils Percent Auto 0.4 % (0-2); Eosinophils Absolute Auto 0.1 X10*3/uL (0.0-0.4); Eosinophils Percent Auto 1.2 % (0-4); Hematocrit 39.7 % (42.0-52.0); Hemoglobin 13.6 g/dl (14.0-18.0); Imm Gran Abs Auto 0.01 X10*3/uL (0.00-0.03); Imm Gran Pct Auto 0.2 % (0.0-0.4); Lymphocytes Absolute Auto 1.8 X10*3/uL (1.2-4.9); Mean Corpuscular HGB Conc 34.3 g/dl (31.0-36.0); Mean Corpuscular Hemoglobin 29.6 pg (27.0-33.0); Mean Corpuscular Volume 86.5 fL (80.0-98.0); Mean Platelet Volume 8.7 fL (9.4-12.4); Monocytes Absolute Auto 0.4 X10*3/uL (0.1-1.2); Monocytes Percent Auto 8.9 % (2-11); Neutrophils Absolute Auto 2.6 x10*3/uL (2.0-8.3); Neutrophils Percent Auto 52.3 % (45-73); Platelet Count 281 X10*3/uL (160-400); Red Blood Count 4.59 X10*6/uL (4.60-5.80); Red Cell Distribution Width 12.9 % (11.0-16.0); White Blood Count 4.9 X10*3/uL (4.8-10.8)
[2024-06-27 15:35] LABS: Anion Gap 13 (12-20); Blood Urea Nitrogen 10 mg/dL (9-16); Carbon Dioxide 25 mmol/L (22-29); Chloride 106 mmol/L (96-108); Estimated Glomerular Filt Rate > 60; Glucose Random 99 mg/dL (60-115); Potassium 3.9 mmol/L (3.3-5.1); Sodium 140 mmol/L (135-145)
== END 2024-06-27 13:36 | disposition home or self-care (01) ==
LOC: HO.LAB 13:35
PROVIDERS: PCP Internal Medicine; Visit Provider Internal Medicine
DX: Z01.818 Encounter for other preprocedural examination (principal); Z13.0 Encounter for screening for diseases of the blood and blood-forming organs and certain disorders involving the immune mechanism; L40.9 Psoriasis, unspecified; F84.0 Autistic disorder; M19.90 Unspecified osteoarthritis, unspecified site
CPT/HCPCS: 36415; 80048; 85025; 99212

== ENCOUNTER 2024-06-27 13:35 | Outpatient (AMB) | payer MEDICARE, MEDICAID, SELFPAY ==
[2024-06-27 13:36] VITALS: BP 144/80; PULSE 76; O2SAT 97; BMI 31.0
--- NOTE | 2024-06-27 13:36 | MHC.PC.OV ---
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 Accompanied by: Self / Same As Patient Allergies No Known Allergies [No Known Allergies*] Allergy (Verified 06/27/24 13:36) Medication List - Last Reconciled 06/30/24 by Nicholas Daniels MD atorvastatin 80 mg PO DAILY [cane As directed] folic acid 1 mg PO DAILY mupirocin 2% 1 appl topical BID 2 weeks olanzapine 20 mg PO BEDTIME primidone 50 mg PO BID risankizumab-rzaa (Skyrizi) 150 mg subcut Q12W walker Folding Front wheeled walker Tobacco use date assessed: 11/20/23 Dental Screening Dental Screen Date: 11/20/23 HPI Preop LEFT [facility] DR Lofton 07/08/24 HPI Details Left [place] later this month; has controlled psoriasis, hyperlipidemia and autism on rx; doing well; no history of CAD PFSH Medical History (Updated 06/30/24 @ 12:41 by Nicholas Daniels MD) Seasonal allergies Tremor Toe infection (06/03/24) Arthritis Depression Anxiety Obesity Hx of psychiatric hospitalization Anemia Psoriasis Insomnia Auditory hallucination Autism spectrum disorder Hyperlipidemia Surgical History (Updated 06/24/24 @ 12:10 by Karen Basilio RN) H/O colonoscopy Family History Mother No problems noted. Father No problems noted. Social History (Updated 06/24/24 @ 12:26 by Karen Basilio RN) Household Members: None Housing: Condominium Are you a primary urgent care technician to a significant other at home: No Do you presently have visiting nurse or other home services: Yes ([facility]NA 3 x weeks to check in, well-being and meds) Alcohol intake: never Patient Tobacco Use Status: Never used Tobacco Tobacco use type: Cigarette e-Cigarette/Vaping Use: Never Used Second Hand Smoke Exposure: No Advance Directives Date on File: 11/26/20 service: No Current occupational status: unemployed Cognitive needs: No Hearing needs: No Vision needs: Yes (glasses) Questionnaire Thrive Questionnaire Date Thrive assessed: 11/20/23 Are you currently unemployed and looking for a job?: No BARRETT-7 AMB Questionnaire BARRETT-7 Date BARRETT - 7 assessed: 11/20/23 Source: Developed by Drs. Tyrell Keen, Tiffany Brooks, Chucho Abdi and colleagues, with an educational halina from 2,10E+07. Review of Systems Const Denies chills, Denies fatigue, Denies headache(s) and Denies weight loss Eyes Denies change in vision, Denies diplopia and Denies eye pain ENT Denies vertigo, Denies dizziness, Denies headache(s) and Denies nasal discharge Card Denies chest pain, Denies rapid heart rate and Denies dyspnea on exertion Resp Denies chest congestion, Denies cough, Denies pain with cough and Denies dyspnea on exertion GI Denies abdominal pain, Denies hematochezia and Denies change in bowel habits Musc Denies myalgias, Denies arthralgias and Denies joint swelling Skin/Breast Denies lesions and Denies unusual bruising Neuro Denies vertigo, Denies dizziness, Denies headache(s) and Denies focal weakness Endo Denies fatigue Physical exam (Primary Care) Vital Signs: Last Vital Signs Pulse 76 06/27/24 13:36 BP 144/80 H 06/27/24 13:36 Pulse Ox 97 06/27/24 13:36 Oxygen Delivery Method Room Air 06/27/24 13:36 BMI result Body Mass Index 31.0 Tobacco/Smoking Status: Tobacco use Status Tobacco use date assessed 11/20/23 06/27/24 13:41 Patient Tobacco Use Status Never used Tobacco 06/27/24 13:41 Tobacco use type Cigarette 06/27/24 13:41 e-Cigarette/Vaping Use Never Used 06/27/24 13:41 Thrive Assessment: Date of Thrive Assessment Date Thrive assessed 11/20/23 06/27/24 13:41 Const General: cooperative, healthy appearing and no acute distress Orientation/consciousness: oriented to person, oriented to place and oriented to time [facility] Head: Yes normal to inspection, Yes normocephalic and Yes atraumatic Mouth: Normal oral and palatal mucosa present and tongue normal Throat: Yes posterior oropharynx normal and Yes uvula midline Eyes General: appearance normal, both eyes and all related structures Neck Neck: Yes normal visual inspection, Yes full ROM and Yes no lymphadenopathy Thyroid: Thyroid normal Carotids: normal carotid upstroke Chest Chest palpation & inspection: normal inspection of the chest Resp Effort & Inspection: normal respiratory effort and able to speak in complete sentences Auscultation: clear to auscultation bilaterally Cardio Jugular venous distension: no JVD Palpation: normal PMI Rate: regular rate Rhythm: regular rhythm Heart sounds: S1 normal heart sound present and S2 normal heart sound present GI Inspection: Yes normal to inspection Palpation (GI): Soft to palpation and No hepatosplenomegaly present Auscultation: normal bowel sounds General: Yes no CVA tenderness Back/Spine/Pelvis Back: no CVA tenderness Skin General skin exam: no rashes or lesions noted Neuro General: oriented to person, oriented to place and oriented to time Extrem General: Yes normal to inspection and Yes full ROM Coding Level of Care Code Est Pt Level 4 (25309) Diagnoses Pre-op evaluation Z Psoriasis L40.9 Hyperlipidemia E78.5 Autism F84.0 Assessment & Plan Assessment & Plan (1) Pre-op evaluation: Code(s): Z.818 - Encounter for other preprocedural examination Category: Medical Plan: low risk for cardiovascular complications; cleared for surgery (2) Psoriasis: Code(s): L40.9 - Psoriasis, unspecified Category: Medical Plan: stable on rx (3) Hyperlipidemia: Comment: stable; same rx Code(s): E78.5 - Hyperlipidemia, unspecified Category: Medical Plan: stable; o rx (4) Autism: Code(s): F84.0 - Autistic disorder Category: Medical Plan: sees psych and doing well Orders: Orders Complete Blood Count Auto Diff 06/27/24 Z13.0 - Encounter for screening for diseases of the blood and blood-forming organs and certain disorders involving the immune mechanism ECG 12 lead EKG 06/27/24 M19.90 - Unspecified osteoarthritis, unspecified site Basic Metabolic Panel 06/27/24 Z01.818 - Encounter for other preprocedural examination
== END 2024-06-27 13:51 | disposition home or self-care (01) ==
LOC: HO.HMCH 13:35
PROVIDERS: PCP Internal Medicine; Visit Provider Internal Medicine
DX: Z01.818 Encounter for other preprocedural examination (principal); L40.9 Psoriasis, unspecified; E78.5 Hyperlipidemia, unspecified; F84.0 Autistic disorder

== ENCOUNTER 2024-07-03 12:15 | Outpatient (REF) | payer MEDICARE, MEDICAID, SELFPAY | END 2024-07-03 12:16 | disposition home or self-care (01) | LOC: HO.HOSX 12:15 | PROVIDERS: Visit Provider Physician Assistant | DX: Z01.818 Encounter for other preprocedural examination (principal); M25.552 Pain in left hip; M16.12 Unilateral primary osteoarthritis, left hip | CPT/HCPCS: 73502; 99212 ==

== ENCOUNTER 2024-07-03 13:39 | Outpatient (AMB) | payer MEDICARE, MEDICAID, SELFPAY ==
--- NOTE | 2024-07-03 14:04 | MHC.OFFVIS ---
Vital Signs 07/03/24 14:09 Height 6 ft 1 in Weight 235 lb BMI 31.0 Intake Visit Reasons: Pre-Op: L AUSTEN w/NE 07/08/24 Intake Note: Kenny a 53 year old male who presents today for a preoperative visit for a LT AUSTEN, DOS 07/08/24 NE. Pain management agreement reviewed and signed. Allergies No Known Allergies [No Known Allergies*] Allergy (Verified 07/03/24 14:09) HPI Comments Details: Mr Craig presents to the office today for preop visit. He is scheduled for left total hip arthroplasty with Dr. Lofton. He continues to have ongoing pain and difficulty with ambulation in the left hip, which is affecting his quality of life; therefore, he has elected to move forward with surgery. He is accompanied by his sister [facility] Medical History (Updated 06/30/24 @ 12:41 by Nicholas Daniels MD) Seasonal allergies Tremor Toe infection (06/03/24) Arthritis Depression Anxiety Obesity Hx of psychiatric hospitalization Anemia Psoriasis Insomnia Auditory hallucination Autism spectrum disorder Hyperlipidemia Surgical History H/O colonoscopy Family History Mother No problems noted. Father No problems noted. Social History Household Members: None Housing: Condominium Are you a primary resident care manager rn to a significant other at home: No Do you presently have visiting nurse or other home services: Yes ([facility] 3 x weeks to check in, well-being and meds) Alcohol intake: never Patient Tobacco Use Status: Never used Tobacco Tobacco use type: Cigarette e-Cigarette/Vaping Use: Never Used Second Hand Smoke Exposure: No Advance Directives Date on File: 11/26/20 service: No Current occupational status: unemployed Cognitive needs: No Hearing needs: No Vision needs: Yes (glasses) Review of Systems Const All systems reviewed & are unremarkable except as noted in HPI and below Physical Exam Vital Signs: BMI result Body Mass Index 31.0 Const General: cooperative and no acute distress Orientation/consciousness: patient oriented x3 Neck Neck: Yes normal visual inspection and Yes no lymphadenopathy Resp Effort & Inspection: normal respiratory effort and able to speak in complete sentences Cardio Peripheral pulses: Peripheral pulses 2+ throughout GI Inspection: Yes normal to inspection Palpation (GI): Soft to palpation Skin General skin exam: no rashes or lesions noted Neuro General: patient oriented x3 Extrem Other: Left hip pain with ROM Skin intact, no open wounds Walks with severe right Trendelenburg gait and moderate left Trendelenburg gait. His feet are externally rotated. Left great toe without signs of acute infection - no redness, no drainage. No tenderness to palpation Results Reviewed Results Reviewed: Xrays were obtained in the office today and personally reviewed by me of the left hip for pre op planning sow end stage oa Assessment & Plan Assessment & Plan (1) Osteoarthritis of left hip: Code(s): M16.12 - Unilateral primary osteoarthritis, left hip Category: Medical Plan: I discussed in detail the procedure and what to expect pre and post operatively. We discussed the risks, benefits and alternatives to the surgery as well as the rehabilitation course. The risks; which include, but are not limited to infection, bleeding, nerve injury, ongoing pain, swelling, and stiffness, perioperative risk of injury to bones and soft tissues, and blood clots. I?ve answered all questions and with their understanding they have consented to move forward with Left total hip arthroplasty with Dr. Lofton Orders: Orders XR hip LT min 2V Today M25.552 - Pain in left hip Medications: New [Raised toilet seat] As directed 1 ea 0RF duration 99 days M16.12 - Unilateral primary osteoarthritis, left hip [Grab Bar] As directed 1 ea 0RF duration 99 days M16.12 - Unilateral primary osteoarthritis, left hip [SHOWER CHAIR] As directed 1 ea 0RF duration 99 days M16.12 - Unilateral primary osteoarthritis, left hip Refilled walker Folding Front wheeled walker 1 ea 0RF DURATION 99 DAYS M16.12 - Unilateral primary osteoarthritis, left hip Patient Instructions: Scribed for Ammon Lama PA-C, by Akshat Fan medical office receptionist, on 07/03/2024 at 2:00 PM EST.? I, Ammon Lama PA-C, have personally reviewed and agree with the information entered by the scribe. Coding Level of Care Code Est Pt Level 3 (49895) Complex EM visit Add On G2211 Diagnoses Osteoarthritis of left hip M16.12
[2024-07-03 14:09] VITALS: BMI 31.0
== END 2024-07-03 14:51 | disposition home or self-care (01) ==
LOC: HO.HOS 13:39
PROVIDERS: PCP Internal Medicine; Visit Provider Physician Assistant
DX: M16.12 Unilateral primary osteoarthritis, left hip (principal)
CPT/HCPCS: 99213; G2211

== ENCOUNTER 2024-07-08 06:01 | Day surgery (SDC) | payer MEDICARE, MEDICAID, SELFPAY ==
--- NOTE | 2024-06-24 | ECG_ITS ---
Test Reason : preop Blood Pressure : / mmHG Vent. Rate : 056 BPM Atrial Rate : 056 BPM P-R Int : 182 ms QRS Dur : 088 ms QT Int : 388 ms P-R-T Axes : 062 026 027 degrees QTc Int : 374 ms Sinus bradycardia Otherwise normal ECG When compared with ECG of 03-FEB-2019 08:06, No significant change was found Referred By: Taryn Crespo Electronically Signed By:VANDANA BARDALES
[2024-06-24 12:10] VITALS: BMI 31.6
[2024-06-24 12:21] VITALS: BP 137/88; PULSE 62; RESP 16; O2SAT 99
--- NOTE | 2024-06-24 12:39 | P.CONAN_ITS ---
Documented by User: Taryn Crespo NP 06/24/24 12:49 HPI - Anesthesia Eval Consult details Narrative: 53yo M for Hip Total Replacement, 07/08/24 Pt reports mild runny nose for a couple weeks . Seasonal allergies. No cough, no fevers. Runs clear No CP/SOB with work/walking Current left toe infection, tx with abx ointment PMFSH Active Problems Active Problems: All Active Problems Osteoarthritis of left hip (Acute) Great toe pain (Acute) DJD (degenerative joint disease), lumbar (Acute) Bilateral hip joint arthritis (Acute) Osteoarthritis of patellofemoral joint (Acute) Osteoarthritis of right knee (Acute) Right ear impacted cerumen (Acute) Right ear pain (Acute) Physical exam (Acute) Encounter for screening for malignant neoplasm of colon (Acute) Autism spectrum disorder (Acute) Psoriasis (Acute) Obesity (Acute) Hyperlipidemia (Acute) Past Medical History Medical History Seasonal allergies Tremor Toe infection (06/03/24) Arthritis Depression Anxiety Obesity Hx of psychiatric hospitalization Anemia Psoriasis Insomnia Auditory hallucination Autism spectrum disorder Hyperlipidemia Family History Family History Mother No problems noted. Father No problems noted. Surgical History Surgical History H/O colonoscopy Social History Social History Household Members: None Housing: Condominium Are you a primary care advocate to a significant other at home: No Do you presently have visiting nurse or other home services: Yes ([facility] 3 x weeks to check in, well-being and meds) Alcohol intake: never Patient Tobacco Use Status: Never used Tobacco Tobacco use type: Cigarette e-Cigarette/Vaping Use: Never Used Second Hand Smoke Exposure: No Use of substances other than those prescribed or required for medical reasons: No Have you been hit, kicked, punched, or otherwise hurt by someone within the past year? If so, by whom?: No Are you DNR?: No Advance Directives: Yes Advance Directives Information Provided: No Advance Directives on File: Yes Advance Directives Date on File: 11/26/20 Recently lost weight without trying: No Nutrition Risks: No Nutritional Risk Poor oral hygiene: No service: No Current occupational status: unemployed Cognitive needs: No Hearing needs: No Vision needs: Yes (glasses) Meds Allergies Allergy/AdvReac Type Severity Reaction Status Date / Time No Known Allergies Allergy Verified 07/08/24 06:09 [No Known Allergies*] Home Medications ?Medication ?Instructions ?Recorded ?Confirmed ?Last Taken ?Type primidone 50 mg tablet 50 mg PO BID 10/22/20 06/30/24 07/08/24 05:00 History risankizumab-rzaa 150 mg/mL 150 mg subcut Q12W 10/20/21 06/30/24 Unknown History subcutaneous pen injector (Skyrizi) olanzapine 20 mg tablet 20 mg PO BEDTIME 06/27/24 06/30/24 07/07/24 History Exam Height,Weight and Vital Signs: Height 6 ft 1 in Weight 108.6 kg Last Vital Signs Pulse 62 06/24/24 12:21 Resp 16 06/24/24 12:21 BP 137/88 06/24/24 12:21 Pulse Ox 99 06/24/24 12:21 O2 Del Method Room Air 06/24/24 12:21 Airway Mallampati Class: II TM Dist: >3cm Neck ROM: Full Loose/Missing/Broken Teeth: No Heart: RRR Lungs: CTAB Assessment and Plan Assessment Anesthesia Assessment: Anesthesia Plan Discussed and PAT Visit Documented by User: Nahomy Jack MD 07/08/24 07:08 [facility] [place] Past Medical History Medical History Seasonal allergies Tremor Toe infection (06/03/24) Arthritis Depression Anxiety Obesity Hx of psychiatric hospitalization Anemia Psoriasis Insomnia Auditory hallucination Autism spectrum disorder Hyperlipidemia Family History Family History Mother No problems noted. Father No problems noted. Family history of problems with anesthesia: No Surgical History Surgical History H/O colonoscopy History of Problems with Anesthesia: No Social History Social History Household Members: None [facility] Are you a primary care advocate to a significant other at home: No Do you presently have visiting nurse or other home services: Yes ([facility] 3 x weeks to check in, well-being and meds) Alcohol intake: never Patient Tobacco Use Status: Never used Tobacco Tobacco use type: Cigarette e-Cigarette/Vaping Use: Never Used Second Hand Smoke Exposure: No Use of substances other than those prescribed or required for medical reasons: No Have you been hit, kicked, punched, or otherwise hurt by someone within the past year? If so, by whom?: No Are you DNR?: No Advance Directives: Yes Advance Directives Information Provided: No Advance Directives on File: Yes Advance Directives Date on File: 11/26/20 Recently lost weight without trying: No Nutrition Risks: No Nutritional Risk Poor oral hygiene: No service: No Current occupational status: unemployed Cognitive needs: No Hearing needs: No Vision needs: Yes (glasses) Meds Allergies Allergy/AdvReac Type Severity Reaction Status Date / Time No Known Allergies Allergy Verified 07/08/24 06:09 [No Known Allergies*] Home Medications ?Medication ?Instructions ?Recorded ?Confirmed ?Last Taken ?Type primidone 50 mg tablet 50 mg PO BID 10/22/20 06/30/24 07/08/24 05:00 History risankizumab-rzaa 150 mg/mL 150 mg subcut Q12W 10/20/21 06/30/24 Unknown History subcutaneous pen injector (Skyrizi) olanzapine 20 mg tablet 20 mg PO BEDTIME 06/27/24 06/30/24 07/07/24 History Assessment and Plan Assessment Anesthesia Assessment: Chart Reviewed Final Anesthetic Review Family History of Problems with Anesthesia: No History of Problems with Anesthesia: No NPO: Yes ASA Class: II Final Preanesthetic Review: No Changes in Pt Med Stat, Meds/Allgs Chart Reviewed and Consent Obtained/Reviewed Patient Risk: Low Procedure Risk: Intermediate Anesthetic Plan Anesthetic Plan: GA Disposition: Standard PACU
[2024-06-24 13:49] LABS: Hematocrit 43.9 % (42.0-52.0); Hemoglobin 14.3 g/dl (14.0-18.0); Mean Corpuscular HGB Conc 32.6 g/dl (31.0-36.0); Mean Corpuscular Hemoglobin 28.9 pg (27.0-33.0); Mean Corpuscular Volume 88.7 fL (80.0-98.0); Mean Platelet Volume 8.4 fL (9.4-12.4); Platelet Count 264 X10*3/uL (160-400); Red Blood Count 4.95 X10*6/uL (4.60-5.80); Red Cell Distribution Width 12.6 % (11.0-16.0); White Blood Count 4.4 X10*3/uL (4.8-10.8)
[2024-06-24 14:13] LABS: Anion Gap 11 (12-20); Blood Urea Nitrogen 8 mg/dL (9-16); Calcium 8.6 mg/dL (8.4-10.2); Carbon Dioxide 29 mmol/L (22-29); Chloride 104 mmol/L (96-108); Creatinine Clr Calc Pharmacy 136.5; Estimated Glomerular Filt Rate > 60; Glucose Random 100 mg/dL (60-115); Potassium 4.3 mmol/L (3.3-5.1); Sodium 140 mmol/L (135-145)
[2024-06-24 14:22] LABS: MRSA Nasal PCR NEGATIVE (Negative); SA Nasal PCR NEGATIVE (Negative)
[2024-07-08] VITALS (11 sets, daily range): BP systolic 115–159; BP diastolic 66–89; PULSE 77–99; RESP 14–16; TEMP 36.1–37.1; O2SAT 95–98; BMI 31.8
--- NOTE | ~2024-07-08 | XR_ITS ---
EXAMINATION: XR PELVIS CLINICAL INFORMATION: Left total hip arthroplasty. COMPARISON: Most recent hip radiographs dated 07/03/2024. TECHNIQUE: AP view of the pelvis. FINDINGS: Prosthetic components of the left total hip arthroplasty are appropriately aligned. No periprosthetic fracture. Gas from recent surgery is present in the surrounding soft tissues. Severe right hip osteoarthritis is unchanged. XR/XR pelvis 1-2V IMPRESSION: Left total hip arthroplasty without evidence of complication. Electronically signed by: Esteban Villagomez MD 07/08/2024 12:59 PM JADA
--- NOTE | ~2024-07-08 | XR_ITS ---
EXAMINATION: XR PELVIS CLINICAL INFORMATION: Status post L AUSTEN COMPARISON: X-ray dated July 08, 2024 TECHNIQUE: AP view of the pelvis. FINDINGS: Metallic prosthesis with an acetabular and femoral component well-seated in the osseous structures. No metallic or radiopaque foreign body. No acute cortical disruption. No loosening. Skin tenzin partially identified overlapping the lateral soft tissues left hip. Osteoarthrosis, right coxofemoral joint. Degenerative changes in the sacroiliac joints and L5-S1. XR/XR pelvis 1-2V IMPRESSION: Status post total left hip arthroplasty procedure, without retained surgical item Electronically signed by: Horacio Gillespie MD 07/10/2024 07:57 AM EST
[2024-07-08] MEDS: oxyCODONE HCl ER 10 MG TAB.ER.12H PO ×2 (06:38→20:49)
[2024-07-08] MEDS: Lactated Ringers 1,000 ML 100 ML IVCONT ×3 (06:53→20:50)
--- NOTE | 2024-07-08 07:22 | MHC.SHP ---
Pre-Procedural Eval Section A - 24 Hr Update-Section A only Date of Service: 07/08/24 The patient is an INPATIENT: No Changes since office visit: No Cold of Flu in the past 2 weeks, No New Medical Problems, No Changes in Medication and No Patient answered all questions The patient has been examined within 24 hours of the surgical procedure. The History & Physical has been completed within 30 days and I have reviewed it.: Yes Section B - Complete if H&P > 30 days Chief Complaint: LEFT AUSTEN Allergies: Allergies Allergy/AdvReac Type Severity Reaction Status Date / Time No Known Allergies Allergy Verified 07/08/24 06:09 [No Known Allergies*] Plan I have reviewed the history and physical and performed a pertinent physical examination on my patient. No changes have occurred unless specified. Time Spent With Patient Time: Total time managing care of this patient today ____ minutes.
--- NOTE | 2024-07-08 10:02 | PM.OP ---
Brief Operative Note Date of Service: 07/08/24 Pre-op diagnosis: Left hip OA Post-op diagnosis: same Procedure: Left AUSTEN Implants: [place] [id number] multi hole 54/20 deg lip Rajinder Accolade2 #5 132/+5 36 ceramic Surgeon: Manolo Lofton MD Anesthesia: GETA and local Was an Engraving Press Operator used for this Procedure?: Yes Engraving Press Operator: Ammon Lama Estimated blood loss (mL): 250 IV fluids (mL): 1,000 Pathology: other Condition: stable Disposition: PACU
--- NOTE | 2024-07-08 10:10 | P.OP_ITS ---
Operative Note Operative Note Date of Service: 07/08/24 Narrative: Date of Service: 07/08/24 Pre-op diagnosis: Left hip OA Post-op diagnosis: same Procedure: Left AUSTEN Implants: [place] [id number] multi hole 54/20 deg lip Rajinder Accolade2 #5 132/+5 36 ceramic Surgeon: Manolo Lofton MD Anesthesia: GETA and local Was an Infrastructure Architect used for this Procedure?: Yes Infrastructure Architect: Ammon Lama Estimated blood loss (mL): 250 IV fluids (mL): 1,000 Pathology: other Condition: stable Disposition: PACU Procedure in detail: Patient was brought into the operating room and placed in the right lateral decubitus position. All bony prominences were well padded and the limb was prepped and draped in standard sterile fashion. A time-out was called to identify proper site procedure proper surgeon IV antibiotics and 1 g of tranexamic acid were administered. I began by making a curvilinear incision over the posterolateral aspect of the greater trochanter. Dissection was taken down to the tensor fascia which was incised in line with the incision and a Charnley retractor was placed. Cautery was used to maintain hemostasis. The hip was internally rotated and the external rotators were identified. The vessels were cauterized and a full-thickness capsular/external rotator layer was developed starting just proximal to the piriformis. This layer was tagged and a dull Hohmann retractor was placed underneath the neck. There were extensive osteophytes circumferentially which were revoved posteriorly in order to dislocate the hip. A neck cut was made 1 cm proximal to the lesser trochanter and the head and neck were removed. The head was deformed and eburnated. I then removed the labrum and cauterized the fovea. I medialized to the inner table with a 44 reamer. I sequentially reamed up to a size 54 and impacted a 54mm multi hole revision cup at 45 degrees of inclination and 25 degrees of version. I then placed a 20 deg posterior lipped liner and turned my attention to the femur. I identified the piriformis insertion and used this as a starting point for my shanae cutter. The medius tendon was protected with a Hibs retractor. A Charnley awl was inserted in the canal and a curved curette used to remove the lateral bone. I irrigated copiously. I then sequentially broached in the patient's natural version to a size 5 and placed my trial implants. I used a #5/132/+5 based on my pre-operative template. Prior to final placement I removed the inferior, superior and posterior osteophytes to reduce impingement. I removed all instrumentation and copiously irrigated. I placed my final femoral implant and again took the hip through range of motion and was satisfied with the stability and length. The final +5 implant was impacted in place and the hip reduced. I then irrigated copiously and placed 1 g of local tranexamic acid. I performed a capsular closure with 2.0 fiberwire, Roberta's fascia with 0 Vicryl, subcuticular with 2-0 Vicryl and the skin with tenzin. Patient was placed into a sterile dressing. Patient was extubated brought to the recovery room in stable condition. There were no known complications.
--- NOTE | 2024-07-08 12:20 | PC.NURSE ---
MISTY Baires notified of need for home meds to be reconcile
[2024-07-08] MEDS: oxyCODONE HCl Immed Release 5 MG TABLET PO ×2 (12:27→18:29)
--- NOTE | 2024-07-08 12:49 | PHA.MEDREC ---
Pharmacy Consult ? Medication Reconciliation Pharmacy has reviewed the medication reconciliation completed by nursing. Claims match med rec.
[2024-07-08] MEDS: ceFAZolin Sodium/Dextrose,Iso 2 GM/50 ML PIGGYBACK IV (13:26)
[2024-07-08] MEDS: HYDROmorphone HCl 0.5 MG/0.5 ML SYRINGE 0.25 MG IVPUSH ×2 (14:17→23:50)
--- NOTE | 2024-07-08 14:51 | PC.NURSE ---
Patient was bladder scanned for 694 ml,voided 480 ml DTV #2 at 2100
--- NOTE | 2024-07-08 14:54 | PC.NURSE ---
Abduction pillow in place ,patient is tolerating it well
--- NOTE | 2024-07-08 15:34 | P.DS_ITS ---
DS: Providers Provider Date of Service: 07/09/24 Primary care physician: Nicholas Daniels MD DS: Summary Hospital Course Hospital Course: The patient underwent a successful left total hip arthroplasty, they were transferred to PACU and then to the floor to recover. During their stay, their vitals were stable, afebrile at 98.5. Labs were unremarkable, H/H 11.0/32.9. POD 1 they were started on Aspirin 325mg po bid for DVT ppx, they also received Physical Therapy services twice a day. Prior to discharge, their dressing was clean dry and intact, and the plan was to be discharged to rehab. Time Attestation Discharge Coordination Time (in mins): 30 Quality: Safe Use of Opioids Does Pt have an Active Cancer Diagnosis on the Problem List?: No Quality: Stroke Does the patient have a stroke diagnosis?: No Physical Exam Vital Signs: Vital Signs: Last Vital Signs Temp 97.8 F 07/08/24 11:07 Pulse 81 07/08/24 11:07 Resp 16 07/08/24 11:07 BP 127/81 07/08/24 11:07 Pulse Ox 95 07/08/24 11:07 O2 Del Method Room Air 07/08/24 11:07 O2 Flow Rate 3 07/08/24 10:42 BMI result Body Mass Index 31.6 Const: General: cooperative, healthy appearing and no acute distress Resp: Effort & Inspection: normal respiratory effort and able to speak in complete sentences Cardio: Rate: regular rate Peripheral pulses: Peripheral pulses 2+ throughout GI: Palpation (GI): Soft to palpation Skin: Lesions: no lesions Rashes: no rashes Extrem: Other: left hip dressing is c/d/i. Able to dorsi/plantar flex. Calf is supple and nontender. Sensation intact. Pedal pulse intact. DS: Data Data Completed and Pending Pending studies at discharge: Pending at discharge 07/08/24 08:17 Surgical [PTH] Routine Discharge Plan Discharge Referrals: Ammon Lama PA-C [Physician Mattress Filling Machine Tender] - 1 Week Discharge Medications: New celecoxib 200 mg Capsule 200 mg PO BID 30 Days Qty: 60 0RF acetaminophen 325 mg Tablet 650 mg PO Q6H PRN (Reason: Pain, Mild (Pain Scale 1-3), fever or headache) 30 Days Qty: 240 0RF aspirin 325 mg Tablet 325 mg PO BID 42 Days Qty: 84 0RF docusate sodium 100 mg Capsule 100 mg PO BID 14 Days Qty: 28 0RF oxycodone 5 mg Tablet 5 mg PO Q4H PRN (Reason: Pain, Moderate(Pain Scale 4-6)) 7 Days Qty: 42 0RF Rx Instructions: Partial Fill upon patient request. Continued atorvastatin 80 mg tablet 80 mg PO DAILY Qty: 90 8RF folic acid 1 mg tablet 1 mg PO DAILY Qty: 90 8RF primidone 50 mg tablet 50 mg PO BID Skyrizi 150 mg/mL pen injector 150 mg subcut Q12W (DME) Raised toilet seat See Rx Instructions .ROUTE .MEDSUPPLY Qty: 1 0RF Rx Instructions: As directed (DME) Grab Bar See Rx Instructions .ROUTE .MEDSUPPLY Qty: 1 0RF Rx Instructions: As directed (DME) SHOWER CHAIR See Rx Instructions .ROUTE .MEDSUPPLY Qty: 1 0RF Rx Instructions: As directed (DME) walker Misc See Rx Instructions .MEDSUPPLY Qty: 1 0RF Rx Instructions: Folding Front wheeled walker (DME) cane See Rx Instructions .Route .MEDSUPPLY Qty: 1 0RF Rx Instructions: As directed mupirocin 2 % ointment 1 appl topical BID 14 Days Qty: 22 0RF olanzapine 20 mg tablet 20 mg PO BEDTIME Discharge Orders: Discharge Order (Routine); Ordered 07/09/24 Ordered By: Milagro Jules Diet: Regular diet Activity on Discharge: Use cane or walker Activity Restrictions/Additional Instructions: * Physical Therapy for Total hip arthroplasty: wbat, posterior precautions, gait training, ROM, strength * Abduction pillow at all times while in bed * Limit stair climbing * No showering, no tub bath-keep dressing clean, dry and intact * No driving x6 weeks * Continue Aspirin twice a day x 6 weeks * Follow up with [facility] [place] Orthopedics in 2 weeks: Print Language: Kinyarwanda
--- NOTE | 2024-07-08 16:14 | MHC.CM.PN ---
Patient s/p L AUSTEN. Lives in a condo alone. 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 Denies use of DME or services. PCP Nicholas Daniels MD HCP on file listing his mother, Yen, as HCA. DP: PT rec STR. Does not have qualifying stay, but has [facility] secondary. Facility preferences are 1) [facility] 2) [facility] 3) [facility]. Referrals sent via [facility]. Will transport via BLS. CM will continue to follow.
[2024-07-08] MEDS: Primidone 50 MG TABLET PO (20:49)
[2024-07-08] MEDS: Docusate Sodium 100 MG CAPSULE PO (20:49)
[2024-07-08] MEDS: Celecoxib 200 MG CAPSULE PO (20:49)
[2024-07-08] MEDS: OLANZapine 10 MG TABLET 20 MG PO (20:50)
[2024-07-09 03:20] VITALS: BP 109/56; PULSE 101; RESP 16; TEMP 37.1; O2SAT 95
[2024-07-09] MEDS: HYDROmorphone HCl 0.5 MG/0.5 ML SYRINGE 0.25 MG IVPUSH (04:50)
[2024-07-09] MEDS: Lactated Ringers 1,000 ML 100 ML IVCONT (06:37)
[2024-07-09] MEDS: oxyCODONE HCl Immed Release 5 MG TABLET PO ×2 (06:41→13:45)
[2024-07-09 07:04] LABS: MANUAL DIFF FLAG NO
[2024-07-09 07:13] LABS: Basophils Percent Auto 0.4 % (0-2); Eosinophils Absolute Auto 0.1 X10*3/uL (0.0-0.4); Eosinophils Percent Auto 1.1 % (0-4); Hematocrit 32.9 % (42.0-52.0); Imm Gran Abs Auto 0.01 X10*3/uL (0.00-0.03); Imm Gran Pct Auto 0.2 % (0.0-0.4); Lymphocytes Absolute Auto 0.8 X10*3/uL (1.2-4.9); Lymphocytes Percent Auto 16.3 % (20-40); Mean Corpuscular HGB Conc 33.4 g/dl (31.0-36.0); Mean Corpuscular Hemoglobin 29.2 pg (27.0-33.0); Mean Corpuscular Volume 87.3 fL (80.0-98.0); Mean Platelet Volume 9.2 fL (9.4-12.4); Monocytes Absolute Auto 0.6 X10*3/uL (0.1-1.2); Monocytes Percent Auto 13.7 % (2-11); Neutrophils Absolute Auto 3.2 x10*3/uL (2.0-8.3); Neutrophils Percent Auto 68.3 % (45-73); Platelet Count 219 X10*3/uL (160-400); Red Blood Count 3.77 X10*6/uL (4.60-5.80); Red Cell Distribution Width 13.2 % (11.0-16.0); White Blood Count 4.7 X10*3/uL (4.8-10.8)
[2024-07-09 07:22] LABS: Anion Gap 12 (12-20); Blood Urea Nitrogen 12 mg/dL (9-16); Calcium 7.8 mg/dL (8.4-10.2); Carbon Dioxide 24 mmol/L (22-29); Chloride 105 mmol/L (96-108); Creatinine Clr Calc Pharmacy 122.5; Estimated Glomerular Filt Rate > 60; Glucose Fasting 171 mg/dL (60-99); Potassium 3.8 mmol/L (3.3-5.1); Sodium 137 mmol/L (135-145)
[2024-07-09 07:40] VITALS: BP 113/68; PULSE 94; RESP 16; TEMP 37; O2SAT 94
[2024-07-09 07:48] VITALS: BP 125/77; PULSE 99; RESP 18; TEMP 36.9; O2SAT 90
--- NOTE | 2024-07-09 07:55 | PM.PNORT ---
Subjective Subjective Date of Service: 07/09/24 Interval history: POD1 s/p LTHA Patient is resting in bed comfortably No overnight events Pain is managed No additional complaints Physical Exam Vital Signs: Vital Signs: Last Vital Signs Temp 98.5 F 07/09/24 07:48 Pulse 99 07/09/24 07:48 Resp 18 07/09/24 07:48 BP 125/77 07/09/24 07:48 Pulse Ox 90 L 07/09/24 07:48 O2 Del Method Room Air 07/09/24 07:48 O2 Flow Rate 3 07/08/24 10:42 BMI result Body Mass Index 31.6 Const: General: cooperative, healthy appearing and no acute distress Resp: Effort & Inspection: normal respiratory effort and able to speak in complete sentences Cardio: Rate: regular rate Peripheral pulses: Peripheral pulses 2+ throughout GI: Palpation (GI): Soft to palpation Skin: Lesions: no lesions Rashes: no rashes Extrem: Other: left hip dressing is c/d/i. Able to dorsi/plantar flex. Calf is supple and nontender. Sensation intact. Pedal pulse intact. Procedures Date of Service Date of Service: 07/09/24 Progress Note: A&P Assessment and plan (1) S/P total left hip arthroplasty: Status: Acute Plan Continue pain mgmnt Begin ASA for dvt ppx begin PT/OT for LTHA Abduction pillow at all times while in bed Dispo planning- PT/OT, pain mgmnt, rehab placement - Okay to discharge once bed is obtained Time Spent With Patient Time: Total time managing care of this patient today ____ minutes. Quality Stroke Does the patient have a stroke diagnosis?: No VTE Prior VTE?: No VTE Risk Level:: Medical - moderate - high VTE Device Contraindication: N/A - Device Ordered VTE Drug Contraindication: N/A - Med Ordered
[2024-07-09] MEDS: Primidone 50 MG TABLET PO (08:47)
[2024-07-09] MEDS: oxyCODONE HCl ER 10 MG TAB.ER.12H PO (08:47)
[2024-07-09] MEDS: Aspirin 325 MG TABLET PO (08:47)
[2024-07-09] MEDS: 0.9 % Sodium Chloride Flush 3 ML SYRINGE IVFLUSH (08:48)
[2024-07-09] MEDS: Celecoxib 200 MG CAPSULE PO (08:48)
[2024-07-09] MEDS: Docusate Sodium 100 MG CAPSULE PO (08:53)
[2024-07-09 12:00] VITALS: BP 99/57; PULSE 90; RESP 16; TEMP 36.6; O2SAT 96
--- NOTE | 2024-07-09 12:06 | MHC.CM.PN ---
Patient is medically cleared for dc to rehab. He has accepted a bed at [facility]. S transport scheduled for 3pm. Patient, family, and RN aware.
== END 2024-07-09 15:17 ==
LOC: HO.SSS 06:15 → HO.S3 10:29
PROVIDERS: Nurse Practitioner; Orthopaedic Surgery; PCP Internal Medicine; Visit Provider Physician Assistant
PROC: (CPT 27130; principal; 2024-07-08 07:30)
DX: M16.12 Unilateral primary osteoarthritis, left hip (principal); D64.9 Anemia, unspecified; E78.5 Hyperlipidemia, unspecified; F84.0 Autistic disorder; R25.1 Tremor, unspecified; L40.8 Other psoriasis; F32.A Depression, unspecified; F41.9 Anxiety disorder, unspecified; J30.2 Other seasonal allergic rhinitis; R44.0 Auditory hallucinations; E66.9 Obesity, unspecified; Z68.31 Body mass index [BMI] 31.0-31.9, adult; Z79.899 Other long term (current) drug therapy; Z56.0 Unemployment, unspecified
CPT/HCPCS: 27130; 36415; 72170; 80048; 85025; 85027; 86850; 86900; 86901; 87640; 87641; 88304; 88311; 93005; 97116; 97162; 97166; 97530; C1776; J0131; J0690; J1100; J1171; J2003; J2250; J2405; J2704; J2795; J3010; J7120

== ENCOUNTER → 2024-07-08 06:01 | Outpatient (BNV) | payer MEDICARE, MEDICAID, SELFPAY | PROVIDERS: PCP Internal Medicine; Visit Provider Orthopaedic Surgery | DX: Z47.1 Aftercare following joint replacement surgery (principal); Z96.642 Presence of left artificial hip joint | CPT/HCPCS: 27130; 99024 ==

== ENCOUNTER → 2024-07-09 14:30 | Outpatient (BNV) | payer MEDICARE, MEDICAID, SELFPAY | PROVIDERS: PCP Internal Medicine; Visit Provider Radiology Diagnostic Radiology | DX: M16.0 Bilateral primary osteoarthritis of hip (principal) | CPT/HCPCS: 72170 ==

== ENCOUNTER 2024-07-22 14:17 | Outpatient (AMB) | payer MEDICARE, MEDICAID, SELFPAY ==
--- NOTE | 2024-07-22 14:18 | MHC.PC.OV ---
Vital Signs 07/22/24 14:19 Height 6 ft 1 in Weight 211 lb 4 oz BMI 27.9 BP 120/82 Blood Pressure Location Lt brachial Position Sitting Pulse 120 H Pulse Source Pulse Oximeter Pulse Oximetry (%) 90 L Oxygen Delivery Method Room Air Intake Visit Reasons: [facility] 07/20 lt hip replacement Intake Note: Patient is here for hospital discharge follow up. Patient was discharged from [facility] on 07/20/24. 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: Present Accompanied by: Cousin/Tennis Director Allergies No Known Allergies [No Known Allergies*] Allergy (Verified 07/22/24 14:18) Medication List - Last Reconciled 07/23/24 by Nicholas Daniels MD acetaminophen 650 mg (2 x 325 mg) PO Q6H PRN 30 days aspirin 325 mg PO BID 42 days atorvastatin 80 mg PO DAILY [cane As directed] celecoxib 200 mg PO BID 30 days docusate sodium 100 mg PO BID 14 days folic acid 1 mg PO DAILY [Grab Bar As directed] mupirocin 2% 1 appl topical BID 2 weeks olanzapine 20 mg PO BEDTIME oxycodone 5 mg PO Q4H PRN 7 days primidone 50 mg PO BID [Raised toilet seat As directed] risankizumab-rzaa (Skyrizi) 150 mg subcut Q12W [SHOWER CHAIR As directed] walker Folding Front wheeled walker Tobacco use date assessed: 07/22/24 Dental Screening Dental Screen Date: 11/20/23 HPI [facility] 07/20 lt hip replacement HPI Details s/p left hip replacement and rehab stay; doing well and participating in PT; no compliacations and pain controlled [facility] Medical History (Updated 07/11/24 @ 00:02 by Be Napoles) Seasonal allergies Tremor Toe infection (06/03/24) Arthritis Depression Anxiety Obesity Hx of psychiatric hospitalization Anemia Psoriasis Insomnia Auditory hallucination Autism spectrum disorder Hyperlipidemia Surgical History (Updated 07/22/24 @ 14:26 by GER Lepe) History of left hip replacement H/O colonoscopy Family History Mother No problems noted. Father No problems noted. Social History Household Members: None Housing: Condominium Are you a primary career development consultant to a significant other at home: No Do you presently have visiting nurse or other home services: Yes Alcohol intake: never Patient Tobacco Use Status: Never used Tobacco Tobacco use type: Cigarette e-Cigarette/Vaping Use: Never Used Second Hand Smoke Exposure: No Advance Directives Date on File: 11/26/20 service: No Current occupational status: unemployed Cognitive needs: Yes (walker) Hearing needs: No Vision needs: Yes (glasses) Questionnaire Thrive Questionnaire Date Thrive assessed: 07/08/24 Are you currently unemployed and looking for a job?: No BARRETT-7 AMB Questionnaire BARRETT-7 Date BARRETT - 7 assessed: 11/20/23 Source: Developed by Drs. Tyrell Keen, Tiffany Brooks, Chucho Abdi and colleagues, with an educational halina from [employer]. Review of Systems Const Denies chills, Denies headache(s) and Denies weight loss ENT Denies headache(s) Card Denies chest pain, Denies syncope, Denies irregular heart rhythm and Denies dyspnea Resp Denies chest congestion, Denies cough and Denies dyspnea GI Denies abdominal pain, Denies change in stool character, Denies nausea and Denies vomiting Musc Denies deformity and Denies joint swelling Neuro Denies syncope and Denies headache(s) Physical exam (Primary Care) Vital Signs: Last Vital Signs Pulse 120 H 07/22/24 14:19 BP 120/82 07/22/24 14:19 Pulse Ox 90 L 07/22/24 14:19 Oxygen Delivery Method Room Air 07/22/24 14:19 BMI result Body Mass Index 27.9 Tobacco/Smoking Status: Tobacco use Status Tobacco use date assessed 07/22/24 07/22/24 14:28 Patient Tobacco Use Status Never used Tobacco 07/22/24 14:28 Tobacco use type Cigarette 07/22/24 14:28 e-Cigarette/Vaping Use Never Used 07/22/24 14:28 Thrive Assessment: Date of Thrive Assessment Date Thrive assessed 07/08/24 07/22/24 14:28 Const General: cooperative, comfortable, no acute distress and alert Neck Neck: Yes no lymphadenopathy Thyroid: Thyroid normal Resp Effort & Inspection: normal respiratory effort Auscultation: clear to auscultation bilaterally Percussion: percussion normal Cardio Jugular venous distension: no JVD Palpation: normal PMI Rate: regular rate Rhythm: regular rhythm Heart sounds: S1 normal heart sound present and S2 normal heart sound present GI Inspection: Yes normal to inspection Palpation (GI): No hepatosplenomegaly present Skin General skin exam: no rashes or lesions noted Extrem General: Yes no clubbing, cyanosis or edema Coding Level of Care Code Est Pt Level 3 (73438) Diagnoses S/P total left hip arthroplasty Z96.642 Assessment & Plan Assessment & Plan (1) S/P total left hip arthroplasty: Code(s): Z96.642 - Presence of left artificial hip joint Category: Surgical Plan: stable; as per ortho Orders: Orders Urine Culture 07/22/24 N39.0 - Urinary tract infection, site not specified
[2024-07-22 14:19] VITALS: BP 120/82; PULSE 120; O2SAT 90; BMI 27.9
== END 2024-07-22 14:41 | disposition home or self-care (01) ==
PROVIDERS: PCP Internal Medicine; Visit Provider Internal Medicine
DX: Z96.642 Presence of left artificial hip joint (principal)

== ENCOUNTER 2024-07-22 14:17 | Outpatient (REF) | payer MEDICARE, MEDICAID, SELFPAY | END 2024-07-22 14:18 | disposition home or self-care (01) | LOC: HO.LAB 14:17 | PROVIDERS: PCP Internal Medicine; Visit Provider Internal Medicine | DX: N39.0 Urinary tract infection, site not specified (principal); Z96.642 Presence of left artificial hip joint | CPT/HCPCS: 87086; 87088; 87186; 99212 ==

== ENCOUNTER 2024-07-23 14:38 | Outpatient (AMB) | payer MEDICARE, MEDICAID, SELFPAY ==
--- NOTE | 2024-07-23 14:42 | MHC.OFFVIS ---
Intake Visit Reasons: 2WK PO: L AUSTEN w/NE 07/08/24 Intake Note: Kenny a 53 year old male who presents today for a post operative left AUSTEN, DOS 07/08/24. Patient reports he is doing well, states his current pain level is a 7 out of 10. He was seen yesterday by Dr. Daniels for frequent urination, he is awaiting his lab results. Allergies No Known Allergies [No Known Allergies*] Allergy (Verified 07/23/24 14:47) HPI HPI 2WK PO: L AUSTEN w/NE 07/08/24: Details: 53-year-old male who returns to the office today for post-op left AUSTEN, 07/08/[address] Lofton. He continues to have pain and rates the pain as 7 on the scale of 0-10. He has not yet started with physical therapy. He is doing well otherwise and has no other concerns today. [facility] Medical History (Updated 07/11/24 @ 00:02 by Be Napoles) Seasonal allergies Tremor Toe infection (06/03/24) Arthritis Depression Anxiety Obesity Hx of psychiatric hospitalization Anemia Psoriasis Insomnia Auditory hallucination Autism spectrum disorder Hyperlipidemia Surgical History History of left hip replacement H/O colonoscopy Family History Mother No problems noted. Father No problems noted. Social History Household Members: None Housing: Condominium Are you a primary home care coordinator to a significant other at home: No Do you presently have visiting nurse or other home services: Yes Alcohol intake: never Patient Tobacco Use Status: Never used Tobacco Tobacco use type: Cigarette e-Cigarette/Vaping Use: Never Used Second Hand Smoke Exposure: No Advance Directives Date on File: 11/26/20 service: No Current occupational status: unemployed Cognitive needs: Yes (walker) Hearing needs: No Vision needs: Yes (glasses) Review of Systems Const All systems reviewed & are unremarkable except as noted in HPI and below Physical Exam Extrem Other: Left hip: Incision clean, dry and intact. No redness or drainage. No pain with ROM. Calf supple, nontender. NVI. Assessment & Plan Assessment & Plan (1) S/P total left hip arthroplasty: Code(s): Z96.642 - Presence of left artificial hip joint Category: Surgical Plan Vee removed, steri strips applied. He will begin to transition to Outpatient PT to continue working on Gait training, ROM and quad strength. No driving for another 4 weeks. He will require ppx abx for dental procedures. He will f/u in 4 weeks, sooner if needed. Of note, he does have a UTI, tx by Dr Daniels with bactrim. I did educate patient and his cousin about risk of joint infection with UTI. Keep an eye out for worsening joint pain, fever, chills, swelling or redness. Patient Instructions: Scribed for Ammon Lama PA-C, by Akshat Fan medical anthropology director, on 07/23/2024 at 2:30 PM EST.? I, Ammon Lama PA-C, have personally reviewed and agree with the information entered by the scribe. Coding Level of Care Code Global (06001) Diagnoses S/P total left hip arthroplasty Z96.642
== END 2024-07-23 15:44 | disposition home or self-care (01) ==
PROVIDERS: PCP Internal Medicine; Visit Provider Physician Assistant
DX: Z96.642 Presence of left artificial hip joint (principal)
CPT/HCPCS: 99024

== ENCOUNTER → 2024-07-23 14:38 | Outpatient (BNVA) | payer MEDICARE, MEDICAID, SELFPAY | PROVIDERS: PCP Internal Medicine; Visit Provider Physician Assistant | DX: Z47.1 Aftercare following joint replacement surgery (principal); Z96.642 Presence of left artificial hip joint | CPT/HCPCS: 99212 ==

== ENCOUNTER 2024-08-12 16:33 | Outpatient (REF) | payer MEDICARE, MEDICAID, SELFPAY | END 2024-08-12 16:34 | disposition home or self-care (01) | LOC: HO.MRI 16:33 | PROVIDERS: PCP Internal Medicine; Visit Provider Orthopaedic Surgery | DX: M47.816 Spondylosis without myelopathy or radiculopathy, lumbar region (principal) | CPT/HCPCS: 72148 ==

== ENCOUNTER 2024-08-13 17:23 | Outpatient (REF) | payer MEDICARE, MEDICAID, SELFPAY ==
--- OUTSIDE RECORDS SUMMARY | 2024-08-13 17:24 | XMS_ITS | Clinical Summary ---
Author Organization Unknown Care Team Providers Care Baker Doughnut Name Role Phone MARBELLA WILD, ESTIVEN Unavailable Unavailable LUISA MCDONALD, SHILPI Unavailable Unavailable Payers Payer Name Policy Type Policy Number Effective Date Expira tion Date [place] [id number] ON DEMAND MEDICARE - [facility] BILLING - ABN [id number] Problems Condition Name Condition Details Condition Category Status Onset Date Resolution Date Last Treatment Date Treating Clinician Comments BIPOLAR DISORD, CRNT EPISODE MANIC W/O PSYCH FEATURES, MOD Active 02-12 00:00: 00 AUTISTIC DISORDER Active 2018-08 0 00:00: 00 IMPULSE DISORDER, UNSPECIFIED Active 02-03 00:00: 00 PROBLEMS RELATED TO LIVING ALONE Active 08-27 00:00: 00 Allergies, Adverse Reactions, Alerts Allergy Name Allergy Type Status Severity Reaction(s) Onset Date Inactive Date Treating Clinician Comments NKA Propensity to adverse reactions Active 2018-10 22:14:3 6 Medications Ordered Medication Name Filled Medication Name Start Date Stop Date Current Medication? Ordering Clinician Indication Dosage Frequency Signature (SIG) Comments Components atorvastati n 80 mg tablet 10-07 00:00: 00 Yes [id number] 80 mg DAILY 80 mg DAILY (route: oral) Alternate Route: By mouth. Med Classific ation: Cardiovas cular Therapy Agents folic acid 1 mg tablet 10-31 00:00: 00 Yes [id number] 1 mg DAILY 1 mg ANA ROSA Y (route: oral) Alternate Route: NONE. Med Classific ation: Electroly te Balance-N utritiona l Products primidone 50 mg tablet 10-31 00:00: 00 Yes [id number] 50 mg 2 TIMES DAILY 50 mg 2 TIMES DAILY (route: oral) Alternate Route: NONE. Med Classific ation: Central Nervous System Agents secukinumab 150 mg/mL subcutaneou s pen injector 10-29 00:00: 00 09-30 23:59 :00 No [id number] 150 mg MONTHLY 150 mg MONTHLY (route: subcutaneo us) Med Classific ation: Dermatolo gical Zyprexa 5 mg tablet 02-05 00:00: 00 02-06 23:59 :00 No [id number] 5 mg EVERY AM 5 mg EVERY AM (route: oral) Alternate Route: NONE. Med Classific ation: Central Nervous System Agents Skyrizi 150 mg/mL subcutaneou s pen injector 09-30 00:00: 00 Yes [id number] 150 mg DIRECTED 150 mg DIRECTED (route: subcutaneo us) Med Classific ation: Dermatolo gical Zyprexa 7.5 mg tablet 02-15 00:00: 00 06-06 23:59 :00 No [id number] 7.5 mg DAILY 7.5 mg DAILY (route: oral) Med Classific ation: Central Nervous System Agents Zyprexa 10 mg tablet 2022-08 00:00: 00 10-03 23:59 :00 No [id number] 10 mg BEDTIME 10 mg BEDTIME (route: oral) Med Classific ation: Central Nervous System Agents Zyprexa 2.5 mg tablet 2022-08 00:00: 00 08-09 23:59 :00 No [id number] 2.5 mg BEDTIME 2.5 mg BEDTIME (route: oral) Med Classific ation: Central Nervous System Agents Zyprexa 5 mg tablet 2022-08 00:00: 00 10-03 23:59 :00 No [id number] 5 mg BEDTIME 5 mg BEDTIME (route: oral) Med Classific ation: Central Nervous System Agents Zyprexa 20 mg tablet 10-08 00:00: 00 Yes [id number] 20 mg BEDTIME 20 mg BEDTIME (route: oral) Med Classific ation: Central Nervous System Agents Vital Signs Vital Name Observation Time Observation Value Commen ts Temperature 2024-08-12 02:25:00.000 97.5 [degF] Temperature 2024-08-10 23:57:00.000 97.5 [degF] Temperature 2024-08-07 13:34:00.000 98.2 [degF] Temperature 2024-08-06 10:52:00.000 98 [degF] Temperature 2024-08-04 16:27:00.000 98 [degF] Pulse 2024-08-07 13:34:00.000 83 /min Respirations 2024-08-07 13:34:00.000 16 /min Systolic Blood Pressure 2024-08-07 13:34:00.000 119 mm [Hg] Diastolic Blood Pressure 2024-08-07 13:34:00.000 79 mm [Hg] Plan of Treatment Planned Activity Planned Date Details Comments Future Scheduled Test SKILLED NU RSE TO EVALUATE PATIENT, IDENTIFY PRIMARY AND CO-MORBID CONDITIONS CODED PER CODING GUIDELINES, AND DEVELOP PATIENT SPECIFIC PLAN OF CARE THAT INCLUDES PATIENT GOAL FOR HOME HEALTH. [code = SKILLED NURSE TO EVALUATE PATIENT, IDENTIFY PRIMARY AND CO-MORBID CONDITIONS CODED PER CODING GUIDELINES, AND DEVELOP PATIENT SPECIFIC PLAN OF CARE THAT INCLUDES PATIENT GOAL FOR HOME HEALTH.] Future Scheduled Test SKILLED NU RSE TO PERFORM HOME SAFETY AND FALL ASSESSMENT AND PROVIDE INSTRUCTION TO IMPLEMENT HOME SAFETY AND FALL PREVENTION STRATEGIES. [code = SKILLED NURSE TO PERFORM HOME SAFETY AND FALL ASSESSMENT AND PROVIDE INSTRUCTION TO IMPLEMENT HOME SAFETY AND FALL PREVENTION STRATEGIES.] Future Scheduled Test PATIENT PASTOR S A RISK OF HOSPITALIZATION AND ED USE. SKILLED NURSE TO ESTABLISH SUPPORT MEASURES TO MINIMIZE RISK OF HOSPITALIZATION AND ED USE, AND INSTRUCT PATIENT/CAREGIVER ON METHODS TO REDUCE AVOIDABLE HOSPITALIZATION AND ED USE. [code = PATIENT HAS A RISK OF HOSPITALIZATION AND ED USE. SKILLED NURSE TO ESTABLISH SUPPORT MEASURES TO MINIMIZE RISK OF HOSPITALIZATION AND ED USE, AND INSTRUCT PATIENT/CAREGIVER ON METHODS TO REDUCE AVOIDABLE HOSPITALIZATION AND ED USE.] Future Scheduled Test SKILLED NU RSE TO PROVIDE INSTRUCTION TO PATIENT/CAREGIVER RELATED TO DISCHARGE PLANNING. [code = SKILLED NURSE TO PROVIDE INSTRUCTION TO PATIENT/CAREGIVER RELATED TO DISCHARGE PLANNING.] Future Scheduled Test SKILLED NU RSE WILL MAINTAIN SITUATIONAL AWARENESS FOR SAFETY AND WILL NOTIFY CLINICAL PRINTED CIRCUIT BOARDS ROUTER AND PHYSICIAN/PROVIDER WITH ANY CHANGE IN CONDITION. [code = SKILLED NURSE WILL MAINTAIN SITUATIONAL AWARENESS FOR SAFETY AND WILL NOTIFY CLINICAL PRINTED CIRCUIT BOARDS ROUTER AND PHYSICIAN/PROVIDER WITH ANY CHANGE IN CONDITION.] Future Scheduled Test SKILLED NU RSE TO REVIEW PATIENT MEDICATIONS. INSTRUCT PATIENT/CAREGIVER ON MONITORING OF EFFECTIVENESS, ADVERSE DRUG REACTIONS, SIDE EFFECTS OF ALL MEDICATIONS (PRESCRIPTION/-OTC), AND HOW AND WHEN TO REPORT PROBLEMS. [code = SKILLED NURSE TO REVIEW PATIENT MEDICATIONS. INSTRUCT PATIENT/CAREGIVER ON MONITORING OF EFFECTIVENESS, ADVERSE DRUG REACTIONS, SIDE EFFECTS OF ALL MEDICATIONS (PRESCRIPTION/-OTC), AND HOW AND WHEN TO REPORT PROBLEMS.] Future Scheduled Test SKILLED NU RSE TO ADMINISTER MEDICATIONS THREE TIMES A WEEK AND PRE-POUR MEDICATIONS TILL NEXT GROUP HOME VISIT PER MEDICATION LIST. [code = SKILLED NURSE TO ADMINISTER MEDICATIONS THREE TIMES A WEEK AND PRE-POUR MEDICATIONS TILL NEXT GROUP HOME VISIT PER MEDICATION LIST.] Future Scheduled Test SKILLED NU RSE FOR MEDICATION ADMINISTRATION PER MEDICATION LIST TO BE PERFORMED THREE TIMES A WEEK [code = SKILLED NURSE FOR MEDICATION ADMINISTRATION PER MEDICATION LIST TO BE PERFORMED THREE TIMES A WEEK ] Future Scheduled Test SKILLED NU RSE TO PRE-POUR MEDICATION PER MEDICATION LIST TILL NEXT GROUP HOME VISIT [code = SKILLED NURSE TO PRE-POUR MEDICATION PER MEDICATION LIST TILL NEXT GROUP HOME VISIT ] Future Scheduled Test SKILLED NU RSE FOR ADMINISTRATION AND TEACHING OF PRESCRIBED INJECTION THERAPY FOR SKYRIZI 150 MG SUB Q [code = SKILLED NURSE FOR ADMINISTRATION AND TEACHING OF PRESCRIBED INJECTION THERAPY FOR SKYRIZI 150 MG SUB Q] Future Scheduled Test SKILLED NU RSE FOR O/A OF ALTERED MOOD [code = SKILLED NURSE FOR O/A OF ALTERED MOOD] Future Scheduled Test SKILLED NU RSE TO ASSESS PATIENTS PSYCHOSOCIAL STATUS TO IDENTIFY POTENTIAL ISSUES THAT MAY COMPLICATE THE PROVISION OF THE PLAN OF CARE INCLUDING THE PATIENTS ABILITY TO ACCESS COMMUNITY RESOURCES AND PSYCHOSOCIAL SUPPORT SERVICES. [code = SKILLED NURSE TO ASSESS PATIENTS PSYCHOSOCIAL STATUS TO IDENTIFY POTENTIAL ISSUES THAT MAY COMPLICATE THE PROVISION OF THE PLAN OF CARE INCLUDING THE PATIENTS ABILITY TO ACCESS COMMUNITY RESOURCES AND PSYCHOSOCIAL SUPPORT SERVICES.] Future Scheduled Test SKILLED NU RSE FOR O/A OF CLIENT'S SOCIAL ISOLATION AND PROVIDE ASSISTANCE TO CLIENT IN DEVELOPMENT OF PLANNED ACTIVITIES [code = SKILLED NURSE FOR O/A OF CLIENT'S SOCIAL ISOLATION AND PROVIDE ASSISTANCE TO CLIENT IN DEVELOPMENT OF PLANNED ACTIVITIES] Goal 2019-02-05 Patient Goal - MORE INVOLVED WITH MY CARE Goal 2018-12-31 Patient Goal - I WILL GIVE MYSELF MY INJECTION Goal 2019-02-27 Patient Goal - S KASSIE AWAY FROM THE HOSPITAL Goal 2019-04-29 Patient Goal - S KASSIE AWAY FROM THE HOSPITAL Goal 2019-06-27 Patient Goal - T MALINI MY MEDICATION ORDERED BY THE DOCTOR Goal 2019-08-28 Patient Goal - T MALINI MY MEDICATION ORDERED BY THE DOCTOR Goal 2019-10-24 Patient Goal - T MALINI MY MEDICATION ORDERED BY THE DOCTOR Goal 2019-12-24 Patient Goal - T MALINI MY MEDICATION ORDERED BY THE DOCTOR Goal 2020-02-24 Patient Goal - T MALINI MY MEDICATION ORDERED BY THE DOCTOR Goal 2020-04-22 Patient Goal - T MALINI MY MEDICATION ORDERED BY THE DOCTOR Goal 2020-06-21 Patient Goal - T MALINI MY MEDICATION ORDERED BY THE DOCTOR Goal 2020-08-19 Patient Goal - T MALINI MY MEDICATION ORDERED BY THE DOCTOR Goal 2020-10-18 Patient Goal - T MALINI MY MEDICATION ORDERED BY THE DOCTOR Goal 2020-12-17 Patient Goal - T MALINI MY MEDICATION ORDERED BY THE DOCTOR Goal 2021-02-16 Patient Goal - T MALINI MY MEDICATION ORDERED BY THE DOCTOR Goal 2021-04-18 Patient Goal - T MALINI MY MEDICATION ORDERED BY THE DOCTOR Goal 2021-06-15 Patient Goal - T MALINI MY MEDICATION ORDERED BY THE DOCTOR Goal 2021-08-15 Patient Goal - T MALINI MY MEDICATION ORDERED BY THE DOCTOR Goal 2021-10-14 Patient Goal - T MALINI MY MEDICATION ORDERED BY THE DOCTOR Goal 2021-12-12 Patient Goal - T MALINI MY MEDICATION ORDERED BY THE DOCTOR Goal 2022-02-10 Patient Goal - T MALINI MY MEDICATION ORDERED BY THE DOCTOR Goal 2022-04-12 Patient Goal - T MALINI MY MEDICATION ORDERED BY THE DOCTOR Goal 2022-06-12 Patient Goal - T MALINI MY MEDICATION ORDERED BY THE DOCTOR Goal 2022-08-09 Patient Goal - T MALINI MY MEDICATION ORDERED BY THE DOCTOR Goal 2022-10-09 Patient Goal - T MALINI MY MEDICATION ORDERED BY THE DOCTOR Goal 2022-12-08 Patient Goal - T MALINI MY MEDICATION ORDERED BY THE DOCTOR Goal 2023-02-05 Patient Goal - T MALINI MY MEDICATION ORDERED BY THE DOCTOR Goal 2023-04-06 Patient Goal - T MALINI MY MEDICATION ORDERED BY THE DOCTOR Goal 2023-06-06 Patient Goal - T MALINI MY MEDICATION ORDERED BY THE DOCTOR Goal 2023-08-06 Patient Goal - T MALINI MY MEDICATION ORDERED BY THE DOCTOR Goal 2023-10-03 Patient Goal - T MALINI MY MEDICATION ORDERED BY THE DOCTOR Goal 2023-12-03 Patient Goal - T MALINI MY MEDICATION ORDERED BY THE DOCTOR Goal 2024-01-31 Patient Goal - T MALINI MY MEDICATION ORDERED BY THE DOCTOR Goal 2024-03-31 Patient Goal - T MALINI MY MEDICATION ORDERED BY THE DOCTOR Goal 2024-06-02 Patient Goal - T MALINI MY MEDICATION ORDERED BY THE DOCTOR Goal 2024-07-30 Patient Goal - T MALINI MY MEDICATION ORDERED BY THE DOCTOR Goal Patient Goal - T MALINI MY MEDICATION ORDERED BY THE DOCTOR Goal Provider Goal - A PLAN OF CARE WILL BE ESTABLISHED THAT MEETS PATIENT'S GROUP HOME NEEDS AND INCLUDES PATIENT GOAL FOR HOME HEALTH. Goal Provider Goal - PATIENT/CAREGIVER WILL VERBALIZE/DEMONSTRATE EFFECTIVE HOME SAFETY AND FALL PREVENTION STRATEGIES THROUGHOUT CERTIFICATION PERIOD. Goal Provider Goal - PATIENT WILL HAVE SUPPORT MEASURES ESTABLISHED TO PREVENT HOSPITALIZATION AND ED USE AND PATIENT/CAREGIVER WILL VERBALIZE/DEMONSTRATE METHODS TO REDUCE AVOIDABLE HOSPITALIZATION AND ED USE BY END OF EPISODE. Goal Provider Goal - PATIENT/CAREGIVER WILL VERBALIZE UNDERSTANDING OF DISCHARGE PLANNING INSTRUCTIONS BY DATE OF DISCHARGE. Goal Provider Goal - PATIENT WILL REMAIN SAFE IN THE COMMUNITY AND WILL BE FREE OF DANGER TO SELF AND OTHERS THROUGHOUT THE CERTIFICATION PERIOD. Goal Provider Goal - PATIENT/CAREGIVER WILL VERBALIZE UNDERSTANDING OF EDUCATION PROVIDED ON MEDICATIONS BY THE END OF THE CERTIFICATION PERIOD. Goal Provider Goal - PATIENT WILL COMPLY WITH MEDICATION WHEN SKILLED NURSE ADMINISTERS AND PRE-POURS MEDICATION THROUGHOUT CERTIFICATION PERIOD. Goal Provider Goal - PATIENT WILL COMPLY WITH MEDICATION WHEN NURSE ADMINISTERS THROUGHOUT CERTIFICATION PERIOD. Goal Provider Goal - PATIENT WILL COMPLY WITH MEDICATION WHEN SKILLED NURSE PRE-POURS MEDICATION THROUGHOUT CERTIFICATION PERIOD. Goal Provider Goal - PATIENT WILL RECEIVE SKYRIZI 150 MG ORDERED. PATIENT/CAREGIVER WILL VERBALIZE/DEMONSTRATE KNOWLEDGE OF INJECTION THERAPY BY THE END OF THE CERTIFICATION PERIOD. Goal Provider Goal - PATIENT WILL BE ABLE TO PERFORM DAILY FUNCTIONS AND HAVE OPTIMAL IMPROVEMENT IN MOOD STABILITY THROUGHOUT CERTIFICATION PERIOD. Goal Provider Goal - PSYCHOSOCIAL NEEDS WILL BE IDENTIFIED AND PLAN IMPLEMENTED TO MINIMIZE RISK THROUGHOUT CERTIFICATION PERIOD. Goal Provider Goal - PATIENT WILL DEMONSTRATE AN INCREASED INTEREST IN SOCIALIZATION AND ACTIVITIES BY THE END OF THE CERTIFICATION PERIOD. Progress Notes Progress Notes <paragraph>[Visit Date: 2023 by SHILPI MORAN RN]:</paragraph><paragraph>PATIENT EDUCATED ABOUT FLU SEASON, THE BEST PREVENTION IS GETTING THE FLU SHOT AND WASHING HANDS FREQUENTLY, ESPECIALLY AFTER BEING OUT IN THE COMMUNITY, PATIENT VERBALIZED UNDERSTANDING.</paragraph> <paragraph>[Visit Date: 2023 by SINDI WHALEN ([facility]) [facility] - PT]:</paragraph><paragraph>08/07 SUMMARY OF THERAPY EVAL/ASSESSMENT FINDINGS AND REASON(S) SKILLS OF A THERAPIST ARE INDICATED: PATIENT REFERRED STATUS POST LEFT TOTAL HIP REPLACEMENT BY DR GARCIA WITH NEW UTI. PAST MEDICAL HISTORY INCLUDES OSTEOARTHRITIS AUTISM AND BIPOLAR. PATIENTS BASELINE WAS INDEPENDENT WORKING FULL-TIME AT [employer] [facility] [place]. PATIENT'S GOAL IS TO RETURN TO WORK. PATIENT IS ALERT AND ABLE TO FOLLOW COMMANDS. HE STANDS SIX FEET TALL ONE INCH WITH A WEIGHT OF 211 LB. PATIENT COMPLAIN TO LEFT HIP PAIN REACHING 7 OUT OF 10 VANISHED WITH TYLENOL. PATIENT HAS FRONT WHEEL WALKER, RAISED TOILET SEAT, SHOWER SEAT AND CANE. PATIENT REQUIRES ASSISTANCE TIMES ONE FOR ADL CARE. PATIENT'S CAUSING PRESENT TO ASSIST. RESTING BLOOD PRESSURE 119 / 79 HEART RATE 83 RESPIRATORY RATE 16 TEMPERATURE 98.2. VISION AND HEARING INTACT. LEFT LOWER EXTREMITY EDEMA WITHIN NORMAL LIMITS FOR POST-OP DATE NO SIGNS OR SYMPTOMS OF DVT. LEFT HIP INCISION HEARING STRIPS INTACT. LEFT HIP RANGE OF MOTION LIMITED BY HIP PRECAUTIONS STRENGTH GROSSLY 3/5. ASSISTANCE TIMES ONE FOR BED MOBILITY TRANSFERS AND AMBULATION WITH FRONT-WHEEL WALKER ANTALGIC PATTERN ON LEFT. ZERO REPETITIONS OF CHAIR RISE TEST, TIMED UP AND GO 30 SECONDS EQUALING FOLLOWERS. PATIENT HAS ONE FLIGHT OF STAIRS TO ENTER AND EXIT HOME. WILL BENEFIT FROM SHORT-TERM HOME THERAPY TO ADDRESS POST-OP TOTAL HIP PROTOCOL, PROGRESSIVE GAIT AND STRENGTH TRAINING, DYNAMIC BALANCE TRAINING CAREGIVER TRAINING. PATIENT AGREES WITH PLAN OF CARE.</paragraph> Encounters Start Date/Time End Date/Time Encounter Type Admission Type Attending Clinicians Care Facility Care Department Encounter ID Discharge Date Discharge Status Discharge Condition Discharge Reason Percent Goals Met 2018-07-06 00:00:00 2024-10-01 00:00:00 Outpatient RECERTIFIC ATION SHILPI MORAN [facility] [id number] 16.00
--- OUTSIDE RECORDS SUMMARY | 2024-08-13 17:25 | XMS_ITS | Clinical Summary ---
Author Organization Unknown Care Team Providers Care Consulting Sales Executive Name Role Phone MARBELLA WILD, ESTIVEN Unavailable Unavailable LUISA MCDONALD, SHILPI Unavailable Unavailable Payers Payer Name Policy Type Policy Number Effective Date Expira tion Date [place] [id number] ON DEMAND MEDICARE - [facility] BILL[facility] - ABN [id number] Problems Condition Name Condition Details Condition Category [...] 80 mg tablet 10-07 00:00: 00 Yes [id number] 80 mg DAILY 80 mg DAILY (route: oral) Alternate Route: By mouth. Med Classific ation: Cardiovas cular Therapy Agents folic acid 1 mg tablet 10-31 00:00: 00 Yes [id number] 1 mg DAILY 1 mg ANA ROSA Y (route: oral) Alternate Route: NONE. Med Classific ation: Electroly te Balance-N utritiona l Products primidone 50 mg tablet 10-31 00:00: 00 Yes [id number] 50 mg 2 TIMES DAILY 50 mg 2 TIMES DAILY (route: oral) Alternate Route: NONE. Med Classific ation: Central Nervous System Agents secukinumab 150 mg/mL subcutaneou s pen injector 10-29 00:00: 00 09-30 23:59 :00 No [id number] 150 mg MONTHLY 150 mg MONTHLY (route: subcutaneo us) Med Classific ation: Dermatolo gical Zyprexa 5 mg tablet 02-05 00:00: 00 02-06 23:59 :00 No [id number] 5 mg EVERY AM 5 mg EVERY AM (route: oral) Alternate Route: NONE. Med Classific ation: Central Nervous System Agents Skyrizi 150 mg/mL subcutaneou s pen injector 09-30 00:00: 00 Yes [id number] 150 mg DIRECTED 150 mg DIRECTED (route: subcutaneo us) Med Classific ation: Dermatolo gical Zyprexa 7.5 mg tablet 02-15 00:00: 00 06-06 23:59 :00 No [id number] 7.5 mg DAILY 7.5 mg DAILY (route: oral) Med Classific ation: Central Nervous System Agents Zyprexa 10 mg tablet 2022-08 00:00: 00 10-03 23:59 :00 No [id number] 10 mg BEDTIME 10 mg BEDTIME (route: oral) Med Classific ation: Central Nervous System Agents Zyprexa 2.5 mg tablet 2022-08 00:00: 00 08-09 23:59 :00 No [id number] 2.5 mg BEDTIME 2.5 mg BEDTIME (route: oral) Med Classific ation: Central Nervous System Agents Zyprexa 5 mg tablet 2022-08 00:00: 00 10-03 23:59 :00 No [id number] 5 mg BEDTIME 5 mg BEDTIME (route: oral) Med Classific ation: Central Nervous System Agents Zyprexa 20 mg tablet 10-08 00:00: 00 Yes [id number] 20 mg BEDTIME 20 mg BEDTIME (route: [...] AWARENESS FOR SAFETY AND WILL NOTIFY CLINICAL TOOL AND DIE MAKER APPRENTICE AND PHYSICIAN/PROVIDER WITH ANY CHANGE IN CONDITION. [code = SKILLED NURSE WILL MAINTAIN SITUATIONAL AWARENESS FOR SAFETY AND WILL NOTIFY CLINICAL TOOL AND DIE MAKER APPRENTICE AND PHYSICIAN/PROVIDER WITH ANY CHANGE IN CONDITION.] [...] A WEEK AND PRE-POUR MEDICATIONS TILL NEXT ASSISTED VISIT PER MEDICATION LIST. [code = SKILLED NURSE TO ADMINISTER MEDICATIONS THREE TIMES A WEEK AND PRE-POUR MEDICATIONS TILL NEXT ASSISTED VISIT PER MEDICATION LIST.] Future Scheduled Test SKILLED NU RSE FOR MEDICATION ADMINISTRATION PER MEDICATION LIST TO BE PERFORMED THREE TIMES A WEEK [code = SKILLED NURSE FOR MEDICATION ADMINISTRATION PER MEDICATION LIST TO BE PERFORMED THREE TIMES A WEEK ] Future Scheduled Test SKILLED NU RSE TO PRE-POUR MEDICATION PER MEDICATION LIST TILL NEXT ASSISTED VISIT [code = SKILLED NURSE TO PRE-POUR MEDICATION PER MEDICATION LIST TILL NEXT ASSISTED VISIT ] Future Scheduled Test SKILLED NU [...] CARE WILL BE ESTABLISHED THAT MEETS PATIENT'S ASSISTED NEEDS AND INCLUDES PATIENT GOAL FOR HOME [...] UNDERSTANDING.</paragraph> <paragraph>[Visit Date: 2023 by SINDI WHALEN ([facility]) [facility] - PT]:</paragraph><paragraph>08/07 SUMMARY OF THERAPY EVAL/ASSESSMENT FINDINGS AND REASON(S) SKILLS OF A THERAPIST ARE INDICATED: PATIENT REFERRED STATUS POST LEFT TOTAL HIP REPLACEMENT BY DR GARCIA WITH NEW UTI. PAST MEDICAL HISTORY INCLUDES OSTEOARTHRITIS AUTISM AND BIPOLAR. PATIENTS BASELINE WAS INDEPENDENT WORKING FULL-TIME AT [employer] [facility] [place]. PATIENT'S GOAL IS TO RETURN TO WORK. [...] 2024-10-01 00:00:00 Outpatient RECERTIFIC ATION SHILPI MORAN [facility] [id number] 16.00
== END 2024-08-13 17:24 | disposition home or self-care (01) ==
LOC: HO.HOSX 17:23
PROVIDERS: Visit Provider Orthopaedic Surgery
DX: Z13.89 Encounter for screening for other disorder (principal)

== ENCOUNTER 2024-08-14 08:25 | Outpatient (AMB) | payer MEDICARE, MEDICAID, SELFPAY ==
--- NOTE | 2024-08-14 08:26 | MHC.OFFVIS ---
Vital Signs 08/14/24 08:36 Height 6 ft 1 in Weight 211 lb BMI 27.8 Intake Visit Reasons: 6WK PO: L AUSTEN w/NE 07/08/24 Intake Note: Kenny is a 53 year old male who presents today for a follow up of his left hip s/p Left AUSTEN 07/09/24. At his last visit it was noted that patient has a UTI being treated with Bactrim - He was notified of the signs of infection. Patient reports that he continues to have 7/10 pain, he is taking Tylenol which only provides mild relief. They did not request refill of Oxycodone but are thinking that this may be necessary. Patient has completed two rounds of ABX for the UTI, but his symptoms have not resolved. They are waiting to hear back from PCP to determine next steps. Allergies No Known Allergies [No Known Allergies*] Allergy (Verified 07/23/24 14:47) HPI HPI 6WK PO: L AUSTEN w/NE 07/08/24: Details: Kenny is a 53 year old male who presents today for a follow up of his left hip s/p Left AUSTEN 07/09/24. At his last visit it was noted that patient has a UTI being treated with Bactrim - He was notified of the signs of infection. Patient reports that he continues to have 7/10 pain, he is taking Tylenol which only provides mild relief. They did not request refill of Oxycodone but are thinking that this may be necessary. He has been improving and his pain is decreasing. He hasn't been able to do PT as much as he would have liked. Patient has completed two rounds of ABX for the UTI, but his symptoms have not resolved. They are waiting to hear back from PCP to determine next steps. [facility] Medical History Seasonal allergies Tremor Toe infection (06/03/24) Arthritis Depression Anxiety Obesity Hx of psychiatric hospitalization Anemia Psoriasis Insomnia Auditory hallucination Autism spectrum disorder Hyperlipidemia Surgical History History of left hip replacement H/O colonoscopy Family History Mother No problems noted. Father No problems noted. Social History Household Members: None Housing: Condominium Are you a primary respiratory care instructor to a significant other at home: No Do you presently have visiting nurse or other home services: Yes Alcohol intake: never Patient Tobacco Use Status: Never used Tobacco Tobacco use type: Cigarette e-Cigarette/Vaping Use: Never Used Second Hand Smoke Exposure: No Advance Directives Date on File: 11/26/20 service: No Current occupational status: unemployed Cognitive needs: Yes (walker) Hearing needs: No Vision needs: Yes (glasses) Physical Exam Vital Signs: BMI result Body Mass Index 27.8 Extrem Other: inc c/d/i no rufino niwth hip ROM improving but Trendelenberg gait Results Reviewed Results Reviewed: I personally reviewed relevant radiographs. Left AUSTEN in expected post operative position with no hardware complications or evidence of loosening Assessment & Plan Assessment & Plan (1) S/P total left hip arthroplasty: Code(s): Z96.642 - Presence of left artificial hip joint Category: Surgical Plan: Doing well Continue PT WBAT with walker F/u 6 weeks UTI per PCP Orders: Orders XR pelvis 1-2V Today M25.559 - Pain in unspecified hip Coding Level of Care Code Global (97256) Diagnoses S/P total left hip arthroplasty Z96.642
[2024-08-14 08:36] VITALS: BMI 27.8
== END 2024-08-14 09:08 | disposition home or self-care (01) ==
PROVIDERS: PCP Internal Medicine; Visit Provider Orthopaedic Surgery
DX: Z96.642 Presence of left artificial hip joint (principal)
CPT/HCPCS: 99024

== ENCOUNTER → 2024-08-14 08:27 | Outpatient (BNV) | payer MEDICARE, MEDICAID, SELFPAY | PROVIDERS: Visit Provider Radiology Diagnostic Radiology | DX: M25.552 Pain in left hip (principal); Z96.642 Presence of left artificial hip joint | CPT/HCPCS: 73502 ==

== ENCOUNTER 2024-08-14 11:16 | Outpatient (REF) | payer MEDICARE, MEDICAID, SELFPAY ==
--- NOTE | ~2024-08-14 | XR_ITS ---
EXAMINATION: XR HIP, LEFT CLINICAL INFORMATION: M25.552 - Pain in left hip COMPARISON: 07/09/2024, 07/08/2024, 07/03/2024. TECHNIQUE: AP pelvis, and lateral views left hip. FINDINGS: Redemonstration of total left hip arthroplasty with acetabular and femoral components intact, anatomically aligned, and well seated without evidence of periprosthetic complication. No subsidence. No acute fractures identified. There has been no change in the appearance. Severe arthritis right hip joint with coxa magna again demonstrated. There is acetabular spurring and subchondral sclerosis. There is subcapital spurring. SI joints appear essentially normal. Degenerative changes lower lumbar spine. Soft tissues appear unremarkable. XR/XR hip LT min 2V IMPRESSION: 1. Total left hip arthroplasty without complication or change. Stable appearance. 2. Severe osteoarthrosis right hip. Electronically signed by: Sandoval Lizarraga MD 08/14/2024 03:52 PM JADA
--- OUTSIDE RECORDS SUMMARY | 2024-08-15 11:23 | XMS_ITS | Clinical Summary ---
Author Organization Unknown Care Team Providers Care Ginner Name Role Phone MARBELLA WILD, ESTIVEN Unavailable Unavailable LUISA MCDONALD, SHILPI Unavailable Unavailable Payers Payer Name Policy Type Policy Number Effective Date Expira tion Date [place] [id number] ON DEMAND MEDICARE - [facility] BILL[facility] - ABN [id number] Problems Condition Name Condition Details Condition Category [...] 80 mg tablet 10-07 00:00: 00 Yes [id number] 80 mg DAILY 80 mg DAILY (route: oral) Alternate Route: By mouth. Med Classific ation: Cardiovas cular Therapy Agents folic acid 1 mg tablet 10-31 00:00: 00 Yes [id number] 1 mg DAILY 1 mg ANA ROSA Y (route: oral) Alternate Route: NONE. Med Classific ation: Electroly te Balance-N utritiona l Products primidone 50 mg tablet 10-31 00:00: 00 Yes [id number] 50 mg 2 TIMES DAILY 50 mg 2 TIMES DAILY (route: oral) Alternate Route: NONE. Med Classific ation: Central Nervous System Agents secukinumab 150 mg/mL subcutaneou s pen injector 10-29 00:00: 00 09-30 23:59 :00 No [id number] 150 mg MONTHLY 150 mg MONTHLY (route: subcutaneo us) Med Classific ation: Dermatolo gical Zyprexa 5 mg tablet 02-05 00:00: 00 02-06 23:59 :00 No [id number] 5 mg EVERY AM 5 mg EVERY AM (route: oral) Alternate Route: NONE. Med Classific ation: Central Nervous System Agents Skyrizi 150 mg/mL subcutaneou s pen injector 09-30 00:00: 00 Yes [id number] 150 mg DIRECTED 150 mg DIRECTED (route: subcutaneo us) Med Classific ation: Dermatolo gical Zyprexa 7.5 mg tablet 02-15 00:00: 00 06-06 23:59 :00 No [id number] 7.5 mg DAILY 7.5 mg DAILY (route: oral) Med Classific ation: Central Nervous System Agents Zyprexa 10 mg tablet 2022-08 00:00: 00 10-03 23:59 :00 No [id number] 10 mg BEDTIME 10 mg BEDTIME (route: oral) Med Classific ation: Central Nervous System Agents Zyprexa 2.5 mg tablet 2022-08 00:00: 00 08-09 23:59 :00 No [id number] 2.5 mg BEDTIME 2.5 mg BEDTIME (route: oral) Med Classific ation: Central Nervous System Agents Zyprexa 5 mg tablet 2022-08 00:00: 00 10-03 23:59 :00 No [id number] 5 mg BEDTIME 5 mg BEDTIME (route: oral) Med Classific ation: Central Nervous System Agents Zyprexa 20 mg tablet 10-08 00:00: 00 Yes [id number] 20 mg BEDTIME 20 mg BEDTIME (route: oral) Med Classific ation: Central Nervous System Agents Vital Signs Vital Name Observation Time Observation Value Commen ts Temperature 2024-08-13 21:57:00.000 97.6 [degF] Temperature 2024-08-12 11:21:00.000 97.4 [degF] Temperature 2024-08-12 02:25:00.000 97.5 [degF] Temperature 2024-08-10 23:57:00.000 97.5 [degF] Temperature 2024-08-07 13:34:00.000 98.2 [degF] Temperature 2024-08-06 10:52:00.000 98 [degF] Temperature 2024-08-04 16:27:00.000 98 [degF] Pulse 2024-08-12 11:21:00.000 82 /min Pulse 2024-08-07 13:34:00.000 83 /min Respirations 2024-08-12 11:21:00.000 18 /min Respirations 2024-08-07 13:34:00.000 16 /min Systolic Blood Pressure 2024-08-12 11:21:00.000 124 mm [Hg] Systolic Blood Pressure 2024-08-07 13:34:00.000 119 mm [Hg] Diastolic Blood Pressure 2024-08-12 11:21:00.000 76 mm [Hg] Diastolic Blood Pressure 2024-08-07 13:34:00.000 [...] AWARENESS FOR SAFETY AND WILL NOTIFY CLINICAL SENIOR SOFTWARE QUALITY ENGINEER AND PHYSICIAN/PROVIDER WITH ANY CHANGE IN CONDITION. [code = SKILLED NURSE WILL MAINTAIN SITUATIONAL AWARENESS FOR SAFETY AND WILL NOTIFY CLINICAL SENIOR SOFTWARE QUALITY ENGINEER AND PHYSICIAN/PROVIDER WITH ANY CHANGE IN CONDITION.] [...] A WEEK AND PRE-POUR MEDICATIONS TILL NEXT LONG-TERM VISIT PER MEDICATION LIST. [code = SKILLED NURSE TO ADMINISTER MEDICATIONS THREE TIMES A WEEK AND PRE-POUR MEDICATIONS TILL NEXT LONG-TERM VISIT PER MEDICATION LIST.] Future Scheduled Test SKILLED NU RSE FOR MEDICATION ADMINISTRATION PER MEDICATION LIST TO BE PERFORMED THREE TIMES A WEEK [code = SKILLED NURSE FOR MEDICATION ADMINISTRATION PER MEDICATION LIST TO BE PERFORMED THREE TIMES A WEEK ] Future Scheduled Test SKILLED NU RSE TO PRE-POUR MEDICATION PER MEDICATION LIST TILL NEXT LONG-TERM VISIT [code = SKILLED NURSE TO PRE-POUR MEDICATION PER MEDICATION LIST TILL NEXT LONG-TERM VISIT ] Future Scheduled Test SKILLED NU [...] CARE WILL BE ESTABLISHED THAT MEETS PATIENT'S LONG-TERM NEEDS AND INCLUDES PATIENT GOAL FOR HOME [...] OUT IN THE COMMUNITY, PATIENT VERBALIZED UNDERSTANDING.</paragraph> Encounters Start Date/Time End Date/Time Encounter Type Admission Type Attending [facility] Care Department Encounter ID Discharge Date Discharge Status Discharge Condition Discharge Reason Percent Goals Met 2018-07-06 00:00:00 2024-10-01 00:00:00 Outpatient [facility] AT[facility]IL[facility] [id number] 08.07
--- OUTSIDE RECORDS SUMMARY | 2024-08-15 11:23 | XMS_ITS | Clinical Summary ---
Author Organization Unknown Care Team Providers Care Bowling Ball Patcher Name Role Phone MARBELLA WILD, ESTIVEN Unavailable Unavailable LUISA MCDONALD, SHILPI Unavailable Unavailable Payers Payer Name Policy Type Policy Number Effective Date Expira tion Date [place] [id number] ON DEMAND MEDICARE - [facility] BILLING - ABN [id number] Problems Condition Name Condition Details Condition Category [...] 80 mg tablet 10-07 00:00: 00 Yes [id number] 80 mg DAILY 80 mg DAILY (route: oral) Alternate Route: By mouth. Med Classific ation: Cardiovas cular Therapy Agents folic acid 1 mg tablet 10-31 00:00: 00 Yes [id number] 1 mg DAILY 1 mg ANA ROSA Y (route: oral) Alternate Route: NONE. Med Classific ation: Electroly te Balance-N utritiona l Products primidone 50 mg tablet 10-31 00:00: 00 Yes [id number] 50 mg 2 TIMES DAILY 50 mg 2 TIMES DAILY (route: oral) Alternate Route: NONE. Med Classific ation: Central Nervous System Agents secukinumab 150 mg/mL subcutaneou s pen injector 10-29 00:00: 00 09-30 23:59 :00 No [id number] 150 mg MONTHLY 150 mg MONTHLY (route: subcutaneo us) Med Classific ation: Dermatolo gical Zyprexa 5 mg tablet 02-05 00:00: 00 02-06 23:59 :00 No [id number] 5 mg EVERY AM 5 mg EVERY AM (route: oral) Alternate Route: NONE. Med Classific ation: Central Nervous System Agents Skyrizi 150 mg/mL subcutaneou s pen injector 09-30 00:00: 00 Yes [id number] 150 mg DIRECTED 150 mg DIRECTED (route: subcutaneo us) Med Classific ation: Dermatolo gical Zyprexa 7.5 mg tablet 02-15 00:00: 00 06-06 23:59 :00 No [id number] 7.5 mg DAILY 7.5 mg DAILY (route: oral) Med Classific ation: Central Nervous System Agents Zyprexa 10 mg tablet 2022-08 00:00: 00 10-03 23:59 :00 No [id number] 10 mg BEDTIME 10 mg BEDTIME (route: oral) Med Classific ation: Central Nervous System Agents Zyprexa 2.5 mg tablet 2022-08 00:00: 00 08-09 23:59 :00 No [id number] 2.5 mg BEDTIME 2.5 mg BEDTIME (route: oral) Med Classific ation: Central Nervous System Agents Zyprexa 5 mg tablet 2022-08 00:00: 00 10-03 23:59 :00 No [id number] 5 mg BEDTIME 5 mg BEDTIME (route: oral) Med Classific ation: Central Nervous System Agents Zyprexa 20 mg tablet 10-08 00:00: 00 Yes [id number] 20 mg BEDTIME 20 mg BEDTIME (route: [...] AWARENESS FOR SAFETY AND WILL NOTIFY CLINICAL AUGER PRESS OPERATOR AND PHYSICIAN/PROVIDER WITH ANY CHANGE IN CONDITION. [code = SKILLED NURSE WILL MAINTAIN SITUATIONAL AWARENESS FOR SAFETY AND WILL NOTIFY CLINICAL AUGER PRESS OPERATOR AND PHYSICIAN/PROVIDER WITH ANY CHANGE IN CONDITION.] [...] A WEEK AND PRE-POUR MEDICATIONS TILL NEXT RESIDENTIAL VISIT PER MEDICATION LIST. [code = SKILLED NURSE TO ADMINISTER MEDICATIONS THREE TIMES A WEEK AND PRE-POUR MEDICATIONS TILL NEXT RESIDENTIAL VISIT PER MEDICATION LIST.] Future Scheduled Test SKILLED NU RSE FOR MEDICATION ADMINISTRATION PER MEDICATION LIST TO BE PERFORMED THREE TIMES A WEEK [code = SKILLED NURSE FOR MEDICATION ADMINISTRATION PER MEDICATION LIST TO BE PERFORMED THREE TIMES A WEEK ] Future Scheduled Test SKILLED NU RSE TO PRE-POUR MEDICATION PER MEDICATION LIST TILL NEXT RESIDENTIAL VISIT [code = SKILLED NURSE TO PRE-POUR MEDICATION PER MEDICATION LIST TILL NEXT RESIDENTIAL VISIT ] Future Scheduled Test SKILLED NU [...] CARE WILL BE ESTABLISHED THAT MEETS PATIENT'S RESIDENTIAL NEEDS AND INCLUDES PATIENT GOAL FOR HOME [...] End Date/Time Encounter Type Admission Type Attending [facility] Care Department Encounter ID Discharge Date Discharge Status Discharge Condition Discharge Reason Percent Goals Met 2018-07-06 00:00:00 2024-10-01 00:00:00 Outpatient [facility] [id number] 08.07
== END 2024-08-14 11:17 | disposition home or self-care (01) ==
LOC: HO.HOSX 11:16
PROVIDERS: Visit Provider Orthopaedic Surgery
DX: M25.559 Pain in unspecified hip (principal); Z96.642 Presence of left artificial hip joint
CPT/HCPCS: 73502; 99212

== ENCOUNTER 2024-09-26 10:17 | Outpatient (AMB) | payer MEDICARE, MEDICAID, SELFPAY ==
--- NOTE | 2024-09-26 10:23 | A.OFFVIS_ITS ---
Intake Visit Reasons: PO- LT AUSTEN w/NE 07/08/24 Intake Note: Kenny is a 53 year old male who present today for a post operative appointment s/p Left AUSTEN 07/08/24. Patient reports that he is having continued pain that is worsened with weight bearing. He continues to ambulate with a walker. Allergies No Known Allergies [No Known Allergies*] Allergy (Verified 07/23/24 14:47) HPI HPI PO- LT AUSTEN w/NE 07/08/24: Details: Kenny is a 53 year old male who present today for a post operative appointment s/p Left AUSTEN 07/08/24. Patient reports that he is having occasional pain with weight bearing but he is feeling much better than before.. He continues to ambulate with a walker. He complains of urinary frequency. He is also not completed outpatient physical therapy. He still is having someone come to his house. [facility] Medical History Seasonal allergies Tremor Toe infection (06/03/24) Arthritis Depression Anxiety Obesity Hx of psychiatric hospitalization Anemia Psoriasis Insomnia Auditory hallucination Autism spectrum disorder Hyperlipidemia Surgical History History of left hip replacement H/O colonoscopy Family History Mother No problems noted. Father No problems noted. Social History Household Members: None Housing: Condominium Are you a primary physician assistant primary care to a significant other at home: No Do you presently have visiting nurse or other home services: Yes Alcohol intake: never Patient Tobacco Use Status: Never used Tobacco Tobacco use type: Cigarette e-Cigarette/Vaping Use: Never Used Second Hand Smoke Exposure: No Advance Directives Date on File: 11/26/20 service: No Current occupational status: unemployed Cognitive needs: Yes (walker) Hearing needs: No Vision needs: Yes (glasses) Physical Exam Extrem Other: No pain with hip range of motion. Positive Trendelenburg gait however. Assessment & Plan Assessment & Plan (1) Urinary frequency: Code(s): R35.0 - Frequency of micturition Category: Medical Plan: I referred him to urology but made states he never got a call. I will put in that referral again. (2) S/P total left hip arthroplasty: Code(s): Z96.642 - Presence of left artificial hip joint Category: Surgical Plan: Needs outpatient PT for gait training. Referral made. Orders: Orders PT Evaluation and Treatment Today Z96.642 - Presence of left artificial hip joint Referrals Urology Referral R35.0 - Frequency of micturition Coding Level of Care Code Global (96223) Diagnoses Urinary frequency R35.0 S/P total left hip arthroplasty Z96.642
== END 2024-09-26 10:29 | disposition home or self-care (01) ==
PROVIDERS: PCP Internal Medicine; Visit Provider Orthopaedic Surgery
DX: R35.0 Frequency of micturition (principal); Z96.642 Presence of left artificial hip joint
CPT/HCPCS: 99024

== ENCOUNTER → 2024-09-26 10:17 | Outpatient (BNVA) | payer MEDICARE, MEDICAID, SELFPAY | PROVIDERS: PCP Internal Medicine; Visit Provider Orthopaedic Surgery | DX: Z47.1 Aftercare following joint replacement surgery (principal); R35.0 Frequency of micturition; Z96.642 Presence of left artificial hip joint | CPT/HCPCS: 99212 ==

== ENCOUNTER → 2024-10-01 13:04 | Outpatient (BNVA) | payer MEDICARE, MEDICAID, SELFPAY | PROVIDERS: Visit Provider Urology | DX: R35.0 Frequency of micturition (principal); N40.1 Benign prostatic hyperplasia with lower urinary tract symptoms; R33.8 Other retention of urine; R39.12 Poor urinary stream | CPT/HCPCS: 51798; 81003; 99202 ==

== ENCOUNTER 2024-11-05 13:00 | Outpatient (RCR) | payer MEDICARE, MEDICAID, SELFPAY ==
--- NOTE | 2024-10-09 15:34 | MHC.PT.EP ---
[facility] [place] Office [place] Office [place] Office [address] Keo Bradley [address] [phone] F: [phone] F: [phone] F: [phone] F: [phone] Physical Therapy Plan of Care Date of Evaluation: 10/09/24 Date of Surgery: 07/08/24 Diagnosis: s/p LEFT AUSTEN (DOS:07/08/24) Dr. Manolo Lofton (RS) Assessment: Kenny is a pleasant 53 y.o. male who is referred to PT by Dr. Manolo Lofton MD with Dx of s/p LEFT AUSTEN (DOS: 07/08/24). Patient impairments include pain, limited hip ROM, weakness in L hip and knee, antalgic gait pattern with AD use. Patient current functional limitations are stairs, bending/squatting, walking. Patient will benefit from skilled PT to address aforementioned impairments and functional limitations to meet established goals. Frequency and Duration: The patient will be seen 2x/week for 8 weeks Short Term Goals: 4 weeks Patient demonstrates consistency and independence with HEP to self manage symptoms. Intermediate Goals: 8 weeks Patient presents with increased L hip glute med strength 4-/5 to improve reciprocal stair use. Patient presents with increased L hip AROM hip extension 10 degrees to improve gait pattern for long distances with cane use. Treatment Plan: Modalities to reduce pain, spasms and effusion. Manual therapy to restore motion and function. Therapeutic exercise to improve strength and flexibility. Neuromuscular re-education for posture and balance. Therapeutic activities to return to functional activities of daily living. Electronically signed by: Scott Padgett, PT, DPT Please sign and return to therapist. Thank you for your referral.
--- NOTE | 2024-12-23 11:48 | MHC.PT.DC ---
[facility] [place] [facility] [place] [facility] [place] [facility] [address] Keo Bradley [address] [phone] F: [phone] F: [phone] F: [phone] F: [phone] Physical Therapy Discharge Report Diagnosis: s/p LEFT AUSTEN (DOS:07/08/24) Dr. Manolo Lofton () Date of Surgery: 07/08/24 Date of Evaluation: 10/09/24 Date of Discharge: 12/23/24 Treatments to Date: 8 Cancellations to Date: 0 No Shows to Date: 0 Discharge Status: Achieved Goals Improved Function Independent with HEP Patient Elected to Stop Recommend MD Follow-up Discharge Summary: Kenny was last treated in PT on 11/05/24, the assessment on that date reads, Pt continues to demonstrate consistency in performance of exercise. Continues to demonstrate hip weakness and requiring constant cuing to perform exercises correctly. Some improvement noted with endurance/ex venecia. Has met goals at this time and agreeable to d/c. Electronically signed by: Scott Padgett, PT, DPT Please sign and return to therapist. Thank you for your referral.
== END 2024-12-23 11:49 | disposition home or self-care (01) ==
LOC: HO.PT 13:00
PROVIDERS: PCP Internal Medicine; Visit Provider Orthopaedic Surgery
DX: Z96.642 Presence of left artificial hip joint (principal)
CPT/HCPCS: 97110; 97162; 97530

== ENCOUNTER 2024-11-14 10:00 | Outpatient (AMB) | payer MEDICARE, MEDICAID, SELFPAY ==
--- NOTE | 2024-11-14 10:03 | MHC.OFFVIS ---
Vital Signs 11/14/24 10:04 Height 6 ft 1 in Weight 211 lb BMI 27.8 Intake Visit Reasons: OV-LT AUSTEN w/NE 07/08/24 Intake Note: Kenny is a 53 year old male who present today for a post operative appointment s/p Left AUSTEN 07/08/24. At his last visit he was referred for outpatient therapy, which he has been attending. Allergies No Known Allergies [No Known Allergies*] Allergy (Verified 11/14/24 10:04) HPI HPI OV-LT AUSTEN w/NE 07/08/24: Details: Pratik is doing well now 5 and half months status post left hip replacement. He still walks with a uncomfortable gait but denies pain is much more upright than prior. He has some pretty severe right knee valgus osteoarthritis. This does not bother him but makes stiff the occult walking. He feels like and go back to work. He is happy with his progress so far. REPLACED BY [facility] Medical History Seasonal allergies Tremor Toe infection (06/03/24) Arthritis Depression Anxiety Obesity Hx of psychiatric hospitalization Anemia Psoriasis Insomnia Auditory hallucination Autism spectrum disorder Hyperlipidemia Surgical History History of left hip replacement H/O colonoscopy Family History Mother No problems noted. Father No problems noted. Social History Household Members: None Housing: Condominium Are you a primary child care cook to a significant other at home: No Do you presently have visiting nurse or other home services: Yes Alcohol intake: never Patient Tobacco Use Status: Never used Tobacco Tobacco use type: Cigarette e-Cigarette/Vaping Use: Never Used Second Hand Smoke Exposure: No Advance Directives Date on File: 11/26/20 service: No Current occupational status: unemployed Cognitive needs: Yes (walker) Hearing needs: No Vision needs: Yes (glasses) Physical Exam Vital Signs: BMI result Body Mass Index 27.8 Extrem Other: Significant dragging of the right externally rotated in valgus right knee with a Trendelenburg gait on the left. No pain with hip range of motion. Assessment & Plan Assessment & Plan (1) S/P total left hip arthroplasty: Code(s): Z96.642 - Presence of left artificial hip joint Category: Surgical Plan: Pratik is doing very well. He has significant challenges but as recovered well and is feeling better than prior. There is still some improvements to made in terms of his gait. I do not think surgical intervention for his knees is appropriate at this time. I would like to see him back in 6 months for a checkup. He may return to work without restrictions. Coding Level of Care Code Est Pt Level 3 (49587) Diagnoses S/P total left hip arthroplasty Z96.642
[2024-11-14 10:04] VITALS: BMI 27.8
== END 2024-11-14 10:18 | disposition home or self-care (01) ==
LOC: HO.HOS 10:01
PROVIDERS: PCP Internal Medicine; Visit Provider Orthopaedic Surgery
DX: Z47.89 Encounter for other orthopedic aftercare (principal); Z96.642 Presence of left artificial hip joint
CPT/HCPCS: 99213

== ENCOUNTER → 2024-11-14 10:00 | Outpatient (BNVA) | payer MEDICARE, MEDICAID, SELFPAY | PROVIDERS: PCP Internal Medicine; Visit Provider Orthopaedic Surgery | DX: Z96.642 Presence of left artificial hip joint (principal) | CPT/HCPCS: 99212 ==

== ENCOUNTER 2024-11-19 11:00 | Outpatient (REF) | payer MEDICARE, MEDICAID, SELFPAY ==
--- NOTE | ~2024-11-19 | US_ITS ---
EXAMINATION: US BLADDER HISTORY: R39.12 - Poor urinary stream COMPARISON: There are no prior studies for comparison. FINDINGS: Sonographic examination of the urinary bladder was performed before and after voiding. Before voiding, the urinary bladder measured 8.6 x 4.3 x 7.3, for an estimated volume of142 mL. After voiding, the urinary bladder measured4.9 x 2.8 x 5.1, for an estimated volume of 36 mL. No intrinsic bladder abnormality is identified. Bilateral ureteral jets are not identified. The prostate measures 2.5 x 2.9 x 4.1 cm. US/US bladder IMPRESSION: No intrinsic bladder abnormality is identified. Post void bladder residual of 36 mL. Electronically signed by: Tyrell Shine MD 11/19/2024 12:15 PM EDT
== END 2024-11-19 11:01 | disposition home or self-care (01) ==
LOC: HO.US 11:00
PROVIDERS: PCP Internal Medicine; Visit Provider Urology
DX: R39.12 Poor urinary stream (principal); N40.1 Benign prostatic hyperplasia with lower urinary tract symptoms; R33.9 Retention of urine, unspecified
CPT/HCPCS: 76857

== ENCOUNTER → 2024-11-19 11:02 | Outpatient (BNV) | payer MEDICARE, MEDICAID, SELFPAY | PROVIDERS: PCP Internal Medicine; Visit Provider Radiology Diagnostic Radiology | DX: R39.12 Poor urinary stream (principal) | CPT/HCPCS: 76857 ==

== ENCOUNTER 2024-11-25 14:15 | Outpatient (AMB) | payer MEDICARE, MEDICAID, SELFPAY ==
--- NOTE | 2024-11-25 14:19 | MHC.OFFVIS ---
Intake Visit Reasons: Cysto Intake Note: Patient is present for Cystoscopy Urology Medication:DOXAZOSIN,FINASTERTIDE Antibiotic Allergy:NONE Blood Thinner:ASPIRIN Lot:[id number] Exp:01/02/27 Recreation Program Coordinator Required: No Allergies No Known Allergies [No Known Allergies*] Allergy (Verified 11/25/24 14:21) HPI Comments Details: Pratik is a pleasant male. He is seen for the following urologic conditions - lower urinary tract symptoms with infectious complications Follow-up cystoscopy Combination alpha-mansoor and finasteride Open bladder neck High residual Trial bethanechol Start finasteride Continue doxazosin Urinary retention with urinary tract infection Had urinary tract infection in July 2024 E coli resistant to ampicillin Does describe weakness of stream and nocturia Hip replacement last June Prior cognitive injury PFSH Medical History Seasonal allergies Tremor Toe infection (06/03/24) Arthritis Depression Anxiety Obesity Hx of psychiatric hospitalization Anemia Psoriasis Insomnia Auditory hallucination Autism spectrum disorder Hyperlipidemia Surgical History History of left hip replacement H/O colonoscopy Family History Mother No problems noted. Father No problems noted. Social History Household Members: None Housing: Condominium Are you a primary personal care assistant to a significant other at home: No Do you presently have visiting nurse or other home services: Yes Alcohol intake: never Patient Tobacco Use Status: Never used Tobacco Tobacco use type: Cigarette e-Cigarette/Vaping Use: Never Used Second Hand Smoke Exposure: No Advance Directives Date on File: 11/26/20 service: No Current occupational status: unemployed Cognitive needs: Yes (walker) Hearing needs: No Vision needs: Yes (glasses) Office Procedures Cystoscopy Consent Discussed risk and benefit or proposed procedure with the patient. Information consent for procedure given to the patient. Discussed technical aspects, risks, benefits and alternatives in full. Addressed all of the patient's questions and concerns regarding the procedure. The patient demonstrated knowledge and understanding. They wish to proceed with this procedure. Preparation The patient was prepped in the usual manner. A appliance parts counter clerk was present and in the room. Genitalia was prepped with betadine solution in a sterile manner. Lidocaine Jelly 2% was placed into the urethra and 16Fr flexible Olympus cystoscope was inserted into the meatus after adequate lubrication. [id number] DISPOSABLE SCOPE URO-G FLEXIBLE SCOPE Procedure code (CPT) selection complete Office Meds lidocaine HCl 2 % mucosal jelly in applicator Performing Provider: Martin Nava MD Performing Location: [facility] [place] [facility] Administered by: Angel Luis Moralez LPN on 11/25/24 14:56 Dose Route Admin Location Dispensed Lot Number Expiration Date [employer] 10 mL intra-urethral 10 mL nitrofurantoin monohydrate/macrocrystals 100 mg capsule Performing Provider: Martin Nava MD Performing Location: [facility] [place] [facility] Administered by: Angel Luis Moralez LPN on 11/25/24 14:56 Dose Route Admin Location Dispensed Lot Number Expiration Date [employer] 100 mg PO 1 cap Assessment & Plan Assessment & Plan (1) Incomplete emptying of bladder due to benign prostatic hyperplasia: Code(s): N40.1 - Benign prostatic hyperplasia with lower urinary tract symptoms; R33.9 - Retention of urine, unspecified Category: Medical (2) Urinary frequency: Code(s): R35.0 - Frequency of micturition Category: Medical Plan Start finasteride Stop bethanechol Three-month follow-up check PVR Orders: Orders AMB Urinalysis Automated Today Z13.9 - Encounter for screening, unspecified AMB Cystoscopy Today N40.1 - Benign prostatic hyperplasia with lower urinary tract symptoms, R33.9 - Retention of urine, unspecified, R35.0 - Frequency of micturition, Z87.440 - Personal history of urinary (tract) infections Medications: New bethanechol chloride 50 mg PO BID 30 days 60 tabs 2RF N39.0 - Urinary tract infection, site not specified, N40.1 - Benign prostatic hyperplasia with lower urinary tract symptoms, R33.9 - Retention of urine, unspecified Discontinued finasteride Discontinued Reason: Doctor's Order 5 mg PO DAILY 30 days 30 tabs 3RF N40.1 - Benign prostatic hyperplasia with lower urinary tract symptoms, R33.9 - Retention of urine, unspecified Patient Instructions: This note is constructed using voice recognition software. While every effort has been made to ensure accuracy tripe scraper errors may have been included. Imaging studies, laboratory and physical exam results were discussed and reviewed in detail. No major barriers to patient understanding were identified. An opportunity to ask questions regarding the treatment plan was provided. All questions were answered. The patient expressed understanding and agreement with the above treatment plan. The patient is aware they should contact our office by phone for worsening of their current condition or the appearance of new urologic symptoms. Compliance is encouraged with any medications and followup testing that is ordered. It is a privilege to participate in the urologic care of your patient. If you have any questions or concerns regarding treatment for the above conditions, or other urologic issues, please do not hesitate to contact me. The office telephone contact is [phone]. Sincerely, Dr Martin Nava MD, [facility] - Urology Compassionate Specialist Care for the Genitourinary System Coding Diagnoses Incomplete emptying of bladder due to benign prostatic hyperplasia N40.1; R33.9 Urinary frequency R35.0 CPT Codes Cystoscopy - CPT: 02573-[id number] ([id number])
--- OUTSIDE RECORDS SUMMARY | 2024-11-25 17:03 | XMS_ITS | Clinical Summary ---
Author Organization Unknown Care Team Providers Care Crude Oil Treater Name Role Phone MARBELLA WILD, ESTIVEN Unavailable Unavailable LUISA MCDONALD, SHILPI Unavailable Unavailable Payers Payer Name Policy Type Policy Number Effective Date Expira tion Date [place] [id number] ON DEMAND MEDICARE - [facility] BILLING - ABN [id number] Problems Condition Name Condition Details Condition Category [...] 80 mg tablet 10-07 00:00: 00 Yes [id number] 80 mg DAILY 80 mg DAILY (route: oral) Alternate Route: By mouth. Med Classific ation: Cardiovas cular Therapy Agents folic acid 1 mg tablet 10-31 00:00: 00 Yes [id number] 1 mg DAILY 1 mg ANA ROSA Y (route: oral) Alternate Route: NONE. Med Classific ation: Electroly te Balance-N utritiona l Products primidone 50 mg tablet 10-31 00:00: 00 Yes [id number] 50 mg 2 TIMES DAILY 50 mg 2 TIMES DAILY (route: oral) Alternate Route: NONE. Med Classific ation: Central Nervous System Agents secukinumab 150 mg/mL subcutaneou s pen injector 10-29 00:00: 00 09-30 23:59 :00 No [id number] 150 mg MONTHLY 150 mg MONTHLY (route: subcutaneo us) Med Classific ation: Dermatolo gical Zyprexa 5 mg tablet 02-05 00:00: 00 02-06 23:59 :00 No [id number] 5 mg EVERY AM 5 mg EVERY AM (route: oral) Alternate Route: NONE. Med Classific ation: Central Nervous System Agents Skyrizi 150 mg/mL subcutaneou s pen injector 09-30 00:00: 00 Yes [id number] 150 mg DIRECTED 150 mg DIRECTED (route: subcutaneo us) Med Classific ation: Dermatolo gical Zyprexa 7.5 mg tablet 02-15 00:00: 00 06-06 23:59 :00 No [id number] 7.5 mg DAILY 7.5 mg DAILY (route: oral) Med Classific ation: Central Nervous System Agents Zyprexa 10 mg tablet 2022-08 00:00: 00 10-03 23:59 :00 No [id number] 10 mg BEDTIME 10 mg BEDTIME (route: oral) Med Classific ation: Central Nervous System Agents Zyprexa 2.5 mg tablet 2022-0815 00:00: 00 08-09 23:59 :00 No [id number] 2.5 mg BEDTIME 2.5 mg BEDTIME (route: oral) Med Classific ation: Central Nervous System Agents Zyprexa 5 mg tablet 2022-08 00:00: 00 10-03 23:59 :00 No [id number] 5 mg BEDTIME 5 mg BEDTIME (route: oral) Med Classific ation: Central Nervous System Agents Zyprexa 20 mg tablet 10-08 00:00: 00 Yes [id number] 20 mg BEDTIME 20 mg BEDTIME (route: oral) Med Classific ation: Central Nervous System Agents Vital Signs Vital Name Observation Time Observation Value Commen ts Temperature 2024-11-24 09:27:00.000 98.1 [degF] Temperature 2024-11-21 09:10:00.000 97.5 [degF] Temperature 2024-11-19 09:22:00.000 98.1 [degF] Temperature 2024-11-17 09:35:00.000 98.1 [degF] Temperature 2024-11-14 09:35:00.000 98.1 [degF] Temperature 2024-11-12 09:34:00.000 98 [degF] Temperature 2024-11-10 09:19:00.000 98 [degF] Temperature 2024-11-07 10:04:00.000 98 [degF] Temperature 2024-11-05 09:20:00.000 97.5 [degF] Temperature 2024-11-03 12:26:00.000 98 [degF] Temperature 2024-10-31 09:08:00.000 98 [degF] Temperature 2024-10-29 09:34:00.000 97.8 [degF] Temperature 2024-10-27 08:53:00.000 97.5 [degF] Temperature 2024-10-24 09:29:00.000 97.5 [degF] Temperature 2024-10-22 09:29:00.000 98 [degF] Temperature 2024-10-20 09:14:00.000 98.1 [degF] Temperature 2024-10-17 09:30:00.000 97.6 [degF] Temperature 2024-10-15 09:27:00.000 98.1 [degF] Temperature 2024 22:58:00.000 98.1 [degF] Temperature 2024-10-10 09:38:00.000 98 [degF] Temperature 2024-10-08 09:42:00.000 98 [degF] Temperature 2024-10-06 09:27:00.000 97.5 [degF] Temperature 2024-10-03 09:47:00.000 97.5 [degF] Plan of Treatment Planned Activity Planned Date [...] AWARENESS FOR SAFETY AND WILL NOTIFY CLINICAL RIVETER PNEUMATIC AND PHYSICIAN/PROVIDER WITH ANY CHANGE IN CONDITION. [code = SKILLED NURSE WILL MAINTAIN SITUATIONAL AWARENESS FOR SAFETY AND WILL NOTIFY CLINICAL RIVETER PNEUMATIC AND PHYSICIAN/PROVIDER WITH ANY CHANGE IN CONDITION.] [...] A WEEK AND PRE-POUR MEDICATIONS TILL NEXT ALF VISIT PER MEDICATION LIST. [code = SKILLED NURSE TO ADMINISTER MEDICATIONS THREE TIMES A WEEK AND PRE-POUR MEDICATIONS TILL NEXT ALF VISIT PER MEDICATION LIST.] Future Scheduled Test SKILLED NU RSE FOR MEDICATION ADMINISTRATION PER MEDICATION LIST TO BE PERFORMED THREE TIMES A WEEK [code = SKILLED NURSE FOR MEDICATION ADMINISTRATION PER MEDICATION LIST TO BE PERFORMED THREE TIMES A WEEK ] Future Scheduled Test SKILLED NU RSE TO PRE-POUR MEDICATION PER MEDICATION LIST TILL NEXT ALF VISIT [code = SKILLED NURSE TO PRE-POUR MEDICATION PER MEDICATION LIST TILL NEXT ALF VISIT ] Future Scheduled Test SKILLED NU [...] CLIENT IN DEVELOPMENT OF PLANNED ACTIVITIES] Goal 2019-08-28 Patient Goal - T MALINI [...] MY MEDICATION ORDERED BY THE DOCTOR Goal 2024-09-27 Patient Goal - T MALINI MY MEDICATION ORDERED BY THE DOCTOR Goal 2019-06-27 Patient Goal - T MALINI MY MEDICATION ORDERED BY THE DOCTOR Goal 2019-04-29 Patient Goal - S [facility] FROM THE [facility] Goal 2019-02-27 Patient Goal - S [facility] AWAY FROM THE HOSPITAL Goal 2018-12-31 Patient Goal - I WILL GIVE MYSELF MY INJECTION Goal 2019-02-05 Patient Goal - MORE INVOLVED WITH MY CARE Goal Patient Goal - T MALINI MY MEDICATION ORDERED BY THE DOCTOR Goal Provider Goal - A PLAN OF CARE WILL BE ESTABLISHED THAT MEETS PATIENT'S ALF NEEDS AND INCLUDES PATIENT GOAL FOR HOME [...] BY THE END OF THE CERTIFICATION PERIOD. Encounters Start Date/Time End Date/Time Encounter Type Admission Type Attending [facility] Care Department Encounter ID Discharge Date Discharge Status Discharge Condition Discharge Reason Percent Goals Met 2018-07-06 00:00:00 2024-11-30 00:00:00 Outpatient RECERTIFIC ADELAION SHILPI [facility] [id number] 23.81
--- OUTSIDE RECORDS SUMMARY | 2024-11-25 17:03 | XMS_ITS | Clinical Summary ---
Author Organization Unknown Care Team Providers Care Breaker Off Name Role Phone MARBELLA WILD, ESTIVEN Unavailable Unavailable LUISA MCDONLAD, SHILPI Unavailable Unavailable Payers Payer Name Policy Type Policy Number Effective Date Expira tion Date [place] [id number] ON DEMAND MEDICARE - [facility] BILLING - ABN [id number] Problems Condition Name Condition Details Condition Category [...] 80 mg tablet 10-07 00:00: 00 Yes [id number] 80 mg DAILY 80 mg DAILY (route: oral) Alternate Route: By mouth. Med Classific ation: Cardiovas cular Therapy Agents folic acid 1 mg tablet 10-31 00:00: 00 Yes [id number] 1 mg DAILY 1 mg ANA ROSA Y (route: oral) Alternate Route: NONE. Med Classific ation: Electroly te Balance-N utritiona l Products primidone 50 mg tablet 10-31 00:00: 00 Yes [id number] 50 mg 2 TIMES DAILY 50 mg 2 TIMES DAILY (route: oral) Alternate Route: NONE. Med Classific ation: Central Nervous System Agents secukinumab 150 mg/mL subcutaneou s pen injector 10-29 00:00: 00 09-30 23:59 :00 No [id number] 150 mg MONTHLY 150 mg MONTHLY (route: subcutaneo us) Med Classific ation: Dermatolo gical Zyprexa 5 mg tablet 02-05 00:00: 00 02-06 23:59 :00 No [id number] 5 mg EVERY AM 5 mg EVERY AM (route: oral) Alternate Route: NONE. Med Classific ation: Central Nervous System Agents Skyrizi 150 mg/mL subcutaneou s pen injector 09-30 00:00: 00 Yes [id number] 150 mg DIRECTED 150 mg DIRECTED (route: subcutaneo us) Med Classific ation: Dermatolo gical Zyprexa 7.5 mg tablet 02-15 00:00: 00 06-06 23:59 :00 No [id number] 7.5 mg DAILY 7.5 mg DAILY (route: oral) Med Classific ation: Central Nervous System Agents Zyprexa 10 mg tablet 2022-08 00:00: 00 10-03 23:59 :00 No [id number] 10 mg BEDTIME 10 mg BEDTIME (route: oral) Med Classific ation: Central Nervous System Agents Zyprexa 2.5 mg tablet 2022-0815 00:00: 00 08-09 23:59 :00 No [id number] 2.5 mg BEDTIME 2.5 mg BEDTIME (route: oral) Med Classific ation: Central Nervous System Agents Zyprexa 5 mg tablet 2022-08 00:00: 00 10-03 23:59 :00 No [id number] 5 mg BEDTIME 5 mg BEDTIME (route: oral) Med Classific ation: Central Nervous System Agents Zyprexa 20 mg tablet 10-08 00:00: 00 Yes [id number] 20 mg BEDTIME 20 mg BEDTIME (route: [...] AWARENESS FOR SAFETY AND WILL NOTIFY CLINICAL MECHANICAL MAINTENANCE SUPERVISOR AND PHYSICIAN/PROVIDER WITH ANY CHANGE IN CONDITION. [code = SKILLED NURSE WILL MAINTAIN SITUATIONAL AWARENESS FOR SAFETY AND WILL NOTIFY CLINICAL MECHANICAL MAINTENANCE SUPERVISOR AND PHYSICIAN/PROVIDER WITH ANY CHANGE IN CONDITION.] [...] End Date/Time Encounter Type Admission Type Attending [facility] Care Department Encounter ID Discharge Date Discharge Status Discharge Condition Discharge Reason Percent Goals Met 2018-07-06 00:00:00 2024-11-30 00:00:00 Outpatient RECERTIFIC ADELAION SHILPI [facility] [id number] 23.81
== END 2024-11-25 15:17 | disposition home or self-care (01) ==
LOC: HO.HUSH 14:15
PROVIDERS: PCP Physician Assistant; Visit Provider Urology
DX: N40.1 Benign prostatic hyperplasia with lower urinary tract symptoms (principal); R35.0 Frequency of micturition; R33.9 Retention of urine, unspecified; Z87.440 Personal history of urinary (tract) infections
CPT/HCPCS: 52000

== ENCOUNTER → 2024-11-25 14:15 | Outpatient (BNVA) | payer MEDICARE, MEDICAID, SELFPAY | PROVIDERS: PCP Physician Assistant; Visit Provider Urology | DX: N40.1 Benign prostatic hyperplasia with lower urinary tract symptoms (principal); R33.9 Retention of urine, unspecified; R35.0 Frequency of micturition | CPT/HCPCS: 52000; 99212 ==

== ENCOUNTER 2025-01-20 08:38 | Outpatient (AMB) | payer MEDICARE, MEDICAID, SELFPAY ==
--- NOTE | 2025-01-20 08:50 | A.OFFPC_ITS ---
Vital Signs 01/20/25 08:52 Height 6 ft 1 in Weight 233 lb 9 oz BMI 30.8 BP 130/64 Blood Pressure Location Lt brachial Position Sitting Pulse 61 Pulse Source Pulse Oximeter Temp 97.1 F Temp Source Temporal Artery Scan Pulse Oximetry (%) 95 Oxygen Delivery Method Room Air Intake Visit Reasons: AWV/ AUDELIA DR Daniels Intake Note: Patient is here today for AUDELIA from Dr Daniels Occupational Nurse Required: No Mailmaster: Present Allergies No Known Allergies [No Known Allergies*] Allergy (Verified 01/20/25 09:16) Medication List - Last Reconciled 01/20/25 by Scooter Wright PA-C acetaminophen 650 mg (2 x 325 mg) PO Q6H PRN 30 days atorvastatin 80 mg PO DAILY bethanechol chloride 50 mg PO BID 30 days [cane As directed] celecoxib 200 mg PO BID 30 days doxazosin 4 mg PO BEDTIME 90 days folic acid 1 mg PO DAILY [Grab Bar As directed] mupirocin 2% 1 appl topical BID 2 weeks olanzapine 20 mg PO BEDTIME primidone 50 mg PO BID [Raised toilet seat As directed] risankizumab-rzaa (Skyrizi) 150 mg subcut Q12W [SHOWER CHAIR As directed] walker Folding Front wheeled walker Tobacco use date assessed: 01/20/25 Dental Screening Dental Screen Date: 01/20/25 Did you have a dental visit in the last 12 months?: No Did you have a dental problem in the last 6 months where you did not have access to dental care?: No Was dental information given to patient?: Patient declined HPI AWV/ AUDELIA DR Daniels HPI Details Patient is a 54-year-old male here today for an a transfer of care visit. Previous PCP was Dr. Daniels. Patient has a past medical history significant for osteoarthritis of the hips, autism spectrum disorder, hyperlipidemia. . Patient underwent a total hip arthroplasty in 2023 and doing well. Continues to walk with a cane. .. Hyperlipidemia: Continues on high potency statin. Most recent lipid panel showing excellent control of his total cholesterol and LDL. .. Autism spectrum disorder : He reports he is followed by a psychiatrist every 3 months. Continues on olanzapine 20 mg and primidone for a minor tremor. .. Psoriasis: He does report still getting Skyrizi injections every 12 weeks. [facility] Medical History (Updated 01/20/25 @ 09:58 by Scooter Wright PA-C) Seasonal allergies Tremor Toe infection (06/03/24) Arthritis Depression Anxiety Obesity Hx of psychiatric hospitalization Anemia Psoriasis Insomnia Auditory hallucination Autism spectrum disorder Hyperlipidemia Surgical History S/P total left hip arthroplasty History of left hip replacement H/O colonoscopy Family History Mother No problems noted. Father No problems noted. Social History Household Members: None Housing: Condominium Are you a primary care director rn to a significant other at home: No Do you presently have visiting nurse or other home services: Yes Alcohol intake: never Patient Tobacco Use Status: Never used Tobacco Tobacco use type: Cigarette e-Cigarette/Vaping Use: Never Used Second Hand Smoke Exposure: No Advance Directives Date on File: 11/26/20 service: No Current occupational status: unemployed Cognitive needs: Yes (walker) Hearing needs: No Vision needs: Yes (glasses) Questionnaire PHQ-9 Over the last 2 weeks, how often have you been bothered by any of the following problems? 1. Little interest or pleasure in doing things: not at all 2. Feeling down, depressed, or hopeless: not at all 3. Trouble falling or staying asleep, or sleeping too much: not at all 4. Feeling tired or having little energy: not at all 5. Poor appetite or overeating: not at all 6. Feeling bad about yourself - or that you are a failure or have let yourself or your family down: not at all 7. Trouble concentrating on things, such as reading the newspaper or watching television: not at all 8. Moving or speaking so slowly that other people could have noticed. Or the opposite - being so fidgety or restless that you have been moving around a lot more than usual: not at all 9. Thoughts that you would be better off or of hurting yourself in some way: not at all Total score: 0 Depression Screening Interpretation: Negative Depression Screening Done: Yes 01018 - PHQ-9 Billing: Yes Source: Developed by Drs. Tyrell Keen, Tiffany Brooks, Chucho Abdi and colleagues, with an educational halina from [employer]. Thrive Questionnaire Date Thrive assessed: 01/20/25 I am a: Patient What is your living situation today?: I have a steady place to live Within the past 12 months, did the food you bought not last and you didn't have the money to get more?: Never true Within the past 12 months, did you worry whether your food would run out before you got money to buy more?: Never true Do you have trouble paying for medicines?: No Do you have trouble getting transportation to medical appointments?: No Do you have trouble paying your heating and electricity bill?: No Do you have trouble taking care of your child, family member or friend?: No Do you have trouble with day-to-day activities such as bathing, preparing meals, shopping, managing finances, etc.?: No Are you currently unemployed and looking for a job?: No Are you interested in more education?: No Please select the resources that you would like help with: None Currently or been in a relationship where the following occur: No concerns reported THRIVE Score: 0 AUDIT C Alcohol Use Questionnaire (AUDIT-C) 1. How often do you have a drink containing alcohol?: Never Total Score: 0 BARRETT-7 AMB Questionnaire BARRETT-7 Date BARRETT - 7 assessed: 01/20/25 Feeling nervous, anxious, or on edge: 0 = Not at all Not being able to stop or control worryin = Not at all Worrying too much about different things: 0 = Not at all Trouble relaxin = Not at all Being so restless that it is hard to sit still: 0 = Not at all Becoming easily annoyed or irritable: 0 = Not at all Feeling afraid as if something awful might happen: 0 = Not at all Total BARRETT-7 score (0-4 normal; 5-9 mild; 10-14 moderate; 15-21 severe): 0 Source: Developed by Drs. Tyrell Keen, Tiffany Brooks, Chucho Abdi and colleagues, with an educational halina from [employer]. BARRETT-7 Assessment Billing BARRETT-7 Assessment Tool: BARRETT-7 Assessment 83047 Review of Systems Const Denies headache(s) Eyes Denies loss of vision ENT Denies vertigo, Denies dizziness, Denies headache(s) and Denies sore throat Card Denies chest pain, Denies leg edema and Denies lightheadedness Resp Denies cough, Denies hemoptysis and Denies wheezing GI Denies abdominal pain, Denies melena, Denies constipation, Denies diarrhea and Denies vomiting Denies dysuria, Denies urinary frequency and Denies urinary urgency Musc Denies arthralgias, Denies joint swelling, Denies numbness and Denies tingling Neuro Denies Abnormal speech present, Denies behavioral changes, Denies vertigo, Denies dizziness, Denies headache(s), Denies loss of vision, Denies memory loss, Denies numbness and Denies tingling Psych Denies anxiety, Denies behavioral changes, Denies depression, Denies memory loss and Denies panic attacks Sohan/Lymph Denies easy bleeding and Denies easy bruising Aller/Immun Denies wheezing Physical exam (Primary Care) Vital Signs: Last Vital Signs Temp 97.1 F 01/20/25 08:52 Pulse 61 01/20/25 08:52 BP 130/64 01/20/25 08:52 Pulse Ox 95 01/20/25 08:52 Oxygen Delivery Method Room Air 01/20/25 08:52 BMI result Body Mass Index 30.8 BMI Assessment/Plan discussion: High BMI High, discussed plan: lifestyle, weight reduction, dietary and physical activity Tobacco/Smoking Status: Tobacco use Status Tobacco use date assessed 01/20/25 01/20/25 08:59 Patient Tobacco Use Status Never used Tobacco 01/20/25 08:51 Tobacco use type Cigarette 01/20/25 08:51 e-Cigarette/Vaping Use Never Used 01/20/25 08:51 PHQ-9: PHQ-9 Score PHQ-9: Total score 0 01/20/25 08:51 Depression Screening Interpretation: Negative Thrive Assessment: Date of Thrive Assessment Date Thrive assessed 01/20/25 01/20/25 08:51 Currently or been in a relationship where the following occur: No concerns reported Const General: healthy appearing, no acute distress, alert and awake Nutritional Appearance: well nourished Orientation/consciousness: oriented to person, oriented to place and oriented to time HENMT Ears: TM's normal bilaterally General nose exam: Normal nasal mucous membranes and turbinates present Eyes Conjunctivae: conjunctivae normal Sclerae: sclerae normal Pupils: Equal, round and reactive pupils present Neck Neck: Yes no lymphadenopathy and Yes no JVD Thyroid: Thyroid normal Carotids: no bruits Resp Effort & Inspection: normal respiratory effort and not tachypneic Auscultation: no crackles, no rales, no rhonchi and no wheezes Cardio Rate: regular rate Rhythm: regular rhythm Heart sounds: no murmurs and normal S1 and S2 GI Palpation (GI): Soft to palpation, nontender, no hepatomegaly and no splenomegaly Auscultation: normal bowel sounds Skin General skin exam: no rashes or lesions noted and dry skin Neuro General: oriented to person, oriented to place and oriented to time Cranial nerves: Yes Equal, round and reactive pupils present Speech: No Abnormal speech present Gait exam (Neuro): Normal gait present Motor exam (neuro): no tremor noted Extrem Right upper extremity: full ROM Left upper extremity: full ROM Right lower extremity: full ROM; no edema Left lower extremity: full ROM; no edema Psych Mental Status: mental status grossly normal Speech and movement: Normal speech and movement present Affect: normal affect Attitude: cooperative Thought process: Normal thought process present Coding Level of Care Code Est Pt Level 4 (36322) Diagnoses Mixed hyperlipidemia E78.2 Hyperlipidemia type: mixed hyperlipidemia Autism spectrum disorder F84.0 Incomplete emptying of bladder due to benign prostatic hyperplasia N40.1; R33.9 Class 1 obesity E66.811 Additional Codes PHQ-9 - 75111 - PHQ-9 Billing: Yes ([id number]) BARRETT-7 Assessment Billing - BARRETT-7 Assessment Tool: BARRETT-7 Assessment 18405 ([id number]) Assessment & Plan Assessment & Plan (1) Hyperlipidemia: Comment: stable; same rx Code(s): E78.5 - Hyperlipidemia, unspecified Category: Medical Qualifiers: Hyperlipidemia type: mixed hyperlipidemia Qualified Code(s): E78.2 - Mixed hyperlipidemia Plan: Patient continues on atorvastatin 80 mg. Most recent lipid panel showing excellent control of his total cholesterol and LDL. (2) Autism spectrum disorder: Code(s): F84.0 - Autistic disorder Category: Medical Plan: Patient continues to see a psychiatrist every 3 months. Continues on olanzapine and primidone. (3) Incomplete emptying of bladder due to benign prostatic hyperplasia: Code(s): N40.1 - Benign prostatic hyperplasia with lower urinary tract symptoms; R33.9 - Retention of urine, unspecified Category: Medical Plan: Followed by [facility]. Continues on doxazosin with decent affect. He denies any urinary issues at this time. (4) Class 1 obesity: Code(s): E66.811 - Obesity, class 1 Category: Medical Plan: Patient does understand his BMI is over 30 will work on trying to be more physically active and adapting to better eating habits to reduce his weight Orders: Orders Lipid Panel Today E78.5 - Hyperlipidemia, unspecified Complete Blood Count no Diff Today E78.5 - Hyperlipidemia, unspecified Comprehensive [place]. Panel Fast Today E78.5 - Hyperlipidemia, unspecified Prostate Specific Antigen Scr Today E78.5 - Hyperlipidemia, unspecified, Z12.5 - Encounter for screening for malignant neoplasm of prostate Patient Instructions: Goal: LDL to remain below 130 Barriers: Adherence to physical activity and healthy eating habits
[2025-01-20 08:52] VITALS: BP 130/64; PULSE 61; TEMP 36.2; O2SAT 95; BMI 30.8
--- OUTSIDE RECORDS SUMMARY | 2025-01-20 08:59 | XMS_ITS | Clinical Summary ---
Author Organization Unknown Care Team Providers Care Hazardous Waste Remover Name Role Phone MARBELLA WILD, ESTIVEN Unavailable Unavailable LUISA MCDONALD, SHILPI Unavailable Unavailable Payers Payer Name Policy Type Policy Number Effective Date Expira tion Date [place] - ABN [id number] ON DEMAND MEDICARE - [facility] BILLING - ABN [id number] Problems Condition Name Condition Details Condition Category [...] 80 mg tablet 10-07 00:00: 00 Yes [id number] 80 mg DAILY 80 mg DAILY (route: oral) Alternate Route: By mouth. Med Classific ation: Cardiovas cular Therapy Agents folic acid 1 mg tablet 10-31 00:00: 00 Yes [id number] 1 mg DAILY 1 mg ANA ROSA Y (route: oral) Alternate Route: NONE. Med Classific ation: Electroly te Balance-N utritiona l Products primidone 50 mg tablet 10-31 00:00: 00 Yes [id number] 50 mg 2 TIMES DAILY 50 mg 2 TIMES DAILY (route: oral) Alternate Route: NONE. Med Classific ation: Central Nervous System Agents secukinumab 150 mg/mL subcutaneou s pen injector 10-29 00:00: 00 09-30 23:59 :00 No [id number] 150 mg MONTHLY 150 mg MONTHLY (route: subcutaneo us) Med Classific ation: Dermatolo gical Zyprexa 5 mg tablet 02-05 00:00: 00 02-06 23:59 :00 No [id number] 5 mg EVERY AM 5 mg EVERY AM (route: oral) Alternate Route: NONE. Med Classific ation: Central Nervous System Agents Skyrizi 150 mg/mL subcutaneou s pen injector 09-30 00:00: 00 Yes [id number] 150 mg DIRECTED 150 mg DIRECTED (route: subcutaneo us) Med Classific ation: Dermatolo gical Zyprexa 7.5 mg tablet 02-15 00:00: 00 06-06 23:59 :00 No [id number] 7.5 mg DAILY 7.5 mg DAILY (route: oral) Med Classific ation: Central Nervous System Agents Zyprexa 10 mg tablet 2022-08 0-15 00:00: 00 10-03 23:59 :00 No [id number] 10 mg BEDTIME 10 mg BEDTIME (route: oral) Med Classific ation: Central Nervous System Agents Zyprexa 2.5 mg tablet 2022-08 0-15 00:00: 00 08-09 23:59 :00 No [id number] 2.5 mg BEDTIME 2.5 mg BEDTIME (route: oral) Med Classific ation: Central Nervous System Agents Zyprexa 5 mg tablet 2022-08 2-14 00:00: 00 10-03 23:59 :00 No [id number] 5 mg BEDTIME 5 mg BEDTIME (route: oral) Med Classific ation: Central Nervous System Agents Zyprexa 20 mg tablet -12 00:00: 00 Yes [id number] 20 mg BEDTIME 20 mg BEDTIME (route: oral) Med Classific ation: Central Nervous System Agents benztropine 0.5 mg tablet -07 00:00: 00 Yes [id number] 0.5 mg 2 TIMES DAILY 0.5 mg 2 TIMES DAILY (route: oral) Med Classific ation: Central Nervous System Agents haloperidol 5 mg tablet 07 00:00: 00 Yes [id number] 5 mg EVERY AM 5 mg EVER Y AM (route: oral) Med Classific ation: Central Nervous System Agents Vital Signs Vital Name Observation Time Observation Value Commen ts Temperature 2025-01-19 07:51:00.000 97.5 [degF] Temperature 2025-01-16 09:09:00.000 97.4 [degF] Temperature 2025-01-14 09:19:00.000 97.7 [degF] Temperature 2025-01-12 08:58:00.000 97.8 [degF] Temperature 2025-01-09 09:12:00.000 97.5 [degF] Temperature 2025-01-07 09:22:00.000 97.7 [degF] Temperature 2025-01-05 08:48:00.000 97.5 [degF] Temperature 2025-01-02 08:59:00.000 97.4 [degF] Temperature 2024-12-31 09:14:00.000 97.5 [degF] Temperature 2024-12-29 08:33:00.000 97.7 [degF] Temperature 2024-12-26 08:43:00.000 97.5 [degF] Temperature 2024-12-24 09:06:00.000 97.5 [degF] Temperature 2024-12-22 09:05:00.000 97.5 [degF] Temperature 2024-12-19 09:01:00.000 97.5 [degF] Temperature 2024-12-17 09:40:00.000 97.5 [degF] Temperature 2024-12-15 09:32:00.000 97.4 [degF] Temperature 2024-12-12 09:14:00.000 97.5 [degF] Temperature 2024-12-10 09:03:00.000 97.5 [degF] Temperature 2024-12-08 09:11:00.000 98 [degF] Temperature 2024-12-05 09:32:00.000 97.5 [degF] Temperature 2024-12-03 09:23:00.000 97.5 [degF] Temperature 2024-12-03 05:15:00.000 97.4 [degF] Plan of Treatment Planned Activity Planned [...] AND FALL PREVENTION STRATEGIES.] Future Scheduled Test SKILLED NU RSE TO PROVIDE INSTRUCTION TO PATIENT/CAREGIVER RELATED TO DISCHARGE PLANNING. [code = SKILLED NURSE TO PROVIDE INSTRUCTION TO PATIENT/CAREGIVER RELATED TO DISCHARGE PLANNING.] Future Scheduled Test SKILLED NU RSE TO O/A OF PATIENTS MENTAL/BEHAVIORAL STATUS, ASSESS VITAL SIGNS THREE TIMES A WEEK [code = SKILLED NURSE TO O/A OF PATIENTS MENTAL/BEHAVIORAL STATUS, ASSESS VITAL SIGNS THREE TIMES A WEEK ] Future Scheduled Test CLINICAL S UMMARY (SOC/RECERT, 10 DAY, 60 DAY): THE PATIENT IS RECEIVING HOMECARE DUE TO NEW ONSET/EXACERBATION OF: YES RECENT HOSPITALIZATION/INPATIENT ADMISSION RELATED TO: YES NEW OR CHANGED MEDICATIONS PERTINENT TO THE PLAN OF CARE: YES PATIENT LIVING SITUATION/CAREGIVER STATUS: ALONE SUMMARIZE SKILLED NEED: MEDICATION MANAGEMENT, VITAL SIGN ASSESSMENT, MENTAL STATUS ASSESSMENT AND DIAGNOSIS MANAGEMENT [code = CLINICAL SUMMARY (SOC/RECERT, 10 DAY, 60 DAY): THE PATIENT IS RECEIVING HOMECARE DUE TO NEW ONSET/EXACERBATION OF: YES RECENT HOSPITALIZATION/INPATIENT ADMISSION RELATED TO: YES NEW OR CHANGED MEDICATIONS PERTINENT TO THE PLAN OF CARE: YES PATIENT LIVING SITUATION/CAREGIVER STATUS: ALONE SUMMARIZE SKILLED NEED: MEDICATION MANAGEMENT, VITAL SIGN ASSESSMENT, MENTAL STATUS ASSESSMENT AND DIAGNOSIS MANAGEMENT ] Future Scheduled Test SKILLED NU RSE WILL MAINTAIN SITUATIONAL AWARENESS FOR SAFETY AND WILL NOTIFY CLINICAL FISHER LOBSTER AND PHYSICIAN/PROVIDER WITH ANY CHANGE IN CONDITION. [code = SKILLED NURSE WILL MAINTAIN SITUATIONAL AWARENESS FOR SAFETY AND WILL NOTIFY CLINICAL FISHER LOBSTER AND PHYSICIAN/PROVIDER WITH ANY CHANGE IN CONDITION.] Future Scheduled Test SKILLED NU RSE FOR O/A OF GENERAL HEALTH STATUS OF PAIN, CARDIAC, RESPIRATORY, GASTROINTESTINAL, GENITOURINARY, SKIN, NEUROLOGIC, ENDOCRINE SYSTEMS TO IDENTIFY CHANGES ASSOCIATED WITH EXACERBATION FOR EARLY INTERVENTION OF COMPLICATIONS THREE TIMES AND DIAGNOSIS [code = SKILLED NURSE FOR O/A OF GENERAL HEALTH STATUS OF PAIN, CARDIAC, RESPIRATORY, GASTROINTESTINAL, GENITOURINARY, SKIN, NEUROLOGIC, ENDOCRINE SYSTEMS TO IDENTIFY CHANGES ASSOCIATED WITH EXACERBATION FOR EARLY INTERVENTION OF COMPLICATIONS THREE TIMES AND DIAGNOSIS ] Future Scheduled Test SKILLED NU RSE [...] TEACHING OF PRESCRIBED INJECTION THERAPY FOR SKYRIZI [code = SKILLED NURSE FOR ADMINISTRATION AND TEACHING OF PRESCRIBED INJECTION THERAPY FOR SKYRIZI] Future Scheduled Test SKILLED NU RSE FOR O/A AND SKILLED TEACHING RELATED TO MANAGEMENT OF DEPRESSIVE SYMPTOMS AND/OR DEPRESSION. SN TO REPORT SIGNIFICANT CHANGE IN DEPRESSIVE SYMPTOMS TO CLINICAL PROVIDER FOR EARLY INTERVENTION. [code = SKILLED NURSE FOR O/A AND SKILLED TEACHING RELATED TO MANAGEMENT OF DEPRESSIVE SYMPTOMS AND/OR DEPRESSION. SN TO REPORT SIGNIFICANT CHANGE IN DEPRESSIVE SYMPTOMS TO CLINICAL PROVIDER FOR EARLY INTERVENTION.] Future Scheduled Test SKILLED NU RSE FOR O/A OF PATIENT'S RISK FOR VIOLENCE (TOWARD SELF OR OTHERS) AND TO PROVIDE INTERVENTION TECHNIQUES TO PROMOTE SAFETY TO PATIENT AND OTHERS [code = SKILLED NURSE FOR O/A OF PATIENT'S RISK FOR VIOLENCE (TOWARD SELF OR OTHERS) AND TO PROVIDE INTERVENTION TECHNIQUES TO PROMOTE SAFETY TO PATIENT AND OTHERS] Future Scheduled Test SKILLED NU RSE FOR [...] CLIENT IN DEVELOPMENT OF PLANNED ACTIVITIES] Goal 2019-02-27 Patient Goal - S KASSIE [...] MY MEDICATION ORDERED BY THE DOCTOR Goal 2024-11-26 Patient Goal - T MALINI MY MEDICATION ORDERED BY THE DOCTOR Goal Patient Goal - T MALINI MY MEDICATION ORDERED BY THE DOCTOR Goal 2019-02-05 Patient Goal - MORE INVOLVED WITH MY CARE Goal 2018-12-31 Patient Goal - I WILL GIVE MYSELF MY INJECTION Goal Provider Goal - A PLAN OF CARE WILL BE ESTABLISHED THAT MEETS PATIENT'S ALF NEEDS AND INCLUDES PATIENT GOAL FOR HOME HEALTH. Goal Provider Goal - PATIENT/CAREGIVER WILL VERBALIZE/DEMONSTRATE EFFECTIVE HOME SAFETY AND FALL PREVENTION STRATEGIES THROUGHOUT CERTIFICATION PERIOD. Goal Provider Goal - PATIENT/CAREGIVER WILL VERBALIZE UNDERSTANDING OF DISCHARGE PLANNING INSTRUCTIONS BY DATE OF DISCHARGE. Goal Provider Goal - ALTERED MENTAL/BEHAVIORAL STATUS WILL BE IDENTIFIED PROMPTLY AND INTERVENTION INITIATED QUICKLY TO MINIMIZE ASSOCIATED RISKS THROUGHOUT CERTIFICATION PERIOD. Goal Provider Goal - PATIENT WILL REMAIN SAFE, FREE FROM HOSPITALIZATION, AND ADHERE TO THE SKILLED NURSES PLAN OF CARE THROUGHOUT THE CERTIFICATION PERIOD. Goal Provider Goal - PATIENT WILL REMAIN SAFE IN THE COMMUNITY AND WILL BE FREE OF DANGER TO SELF AND OTHERS THROUGHOUT THE CERTIFICATION PERIOD. Goal Provider Goal - CHANGE IN GENERAL HEALTH STATUS WILL BE IDENTIFIED AND REPORTED TO PHYSICIAN FOR PROMPT INTERVENTION TO MINIMIZE ASSOCIATED RISKS THROUGHOUT CERTIFICATION PERIOD. Goal Provider Goal - PATIENT WILL COMPLY WITH MEDICATION WHEN NURSE ADMINISTERS THROUGHOUT CERTIFICATION PERIOD. Goal Provider Goal - PATIENT WILL COMPLY WITH MEDICATION WHEN SKILLED NURSE PRE-POURS MEDICATION THROUGHOUT CERTIFICATION PERIOD. Goal Provider Goal - PATIENT WILL RECEIVE SKYRIZI ORDERED. PATIENT/CAREGIVER WILL VERBALIZE/DEMONSTRATE KNOWLEDGE OF INJECTION THERAPY BY THE END OF THE CERTIFICATION PERIOD. Goal Provider Goal - PATIENT WILL REMAIN SAFE WITHOUT DECOMPENSATION IN DEPRESSIVE CONDITION, WHILE MAINTAINING OPTIMAL LEVEL OF MENTAL HEALTH AND WELL BEING THROUGHOUT CERTIFICATION PERIOD. Goal Provider Goal - PATIENT WILL REMAIN SAFE IN COMMUNITY WITHOUT EVIDENCE OF INJURY/HARM TO SELF OR OTHERS THROUGHOUT CERTIFICATION PERIOD. Goal Provider Goal - [...] End Date/Time Encounter Type Admission Type Attending [facility] Care Department Encounter ID Discharge Date Discharge Status Discharge Condition Discharge Reason Percent Goals Met 2024-12-01 00:00:00 2025-01-29 00:00:00 Outpatient RECERTIFIC SHILPI SMITH [facility] [id number] 18.75
== END 2025-01-20 09:32 | disposition home or self-care (01) ==
PROVIDERS: PCP Physician Assistant; Visit Provider Physician Assistant
DX: E78.2 Mixed hyperlipidemia (principal); E66.811 Obesity, class 1; Z68.30 Body mass index [BMI] 30.0-30.9, adult; F84.0 Autistic disorder; N40.1 Benign prostatic hyperplasia with lower urinary tract symptoms; R33.9 Retention of urine, unspecified

== ENCOUNTER → 2025-01-20 08:38 | Outpatient (BNVA) | payer MEDICARE, MEDICAID, SELFPAY | PROVIDERS: PCP Physician Assistant; Visit Provider Physician Assistant | DX: E78.2 Mixed hyperlipidemia (principal); F84.0 Autistic disorder; N40.1 Benign prostatic hyperplasia with lower urinary tract symptoms; R33.9 Retention of urine, unspecified; E66.811 Obesity, class 1 | CPT/HCPCS: 96127; 99212 ==

== ENCOUNTER → 2025-02-03 23:59 | Outpatient (BNV) | payer MEDICARE, MEDICAID, SELFPAY | PROVIDERS: PCP Physician Assistant; Visit Provider Physician Assistant | DX: F31.12 Bipolar disorder, current episode manic without psychotic features, moderate (principal); F84.0 Autistic disorder; F63.9 Impulse disorder, unspecified; Z60.2 Problems related to living alone | CPT/HCPCS: G0179 ==

== ENCOUNTER 2025-02-24 10:09 | Outpatient (AMB) | payer MEDICARE, MEDICAID, SELFPAY ==
--- NOTE | 2025-02-24 10:32 | A.OFFVIS_ITS ---
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 He is seen for the following urologic conditions - lower urinary tract symptoms with infectious complications Three-month follow-up Has been on bethanechol with finasteride for high residual Follow-up cystoscopy Combination alpha-mansoor and finasteride and bethanechol PVR 90 cc Prior cystoscopy - Open bladder neck Lower urinary tract symptoms Cognitive injury with walking stick Incomplete bladder emptying Good response to combination bethanechol, finasteride and alpha-mansoor Urinary retention with urinary tract infection Had urinary tract infection in July 2024 E coli resistant to ampicillin Does describe weakness of stream and nocturia Hip replacement last June Prior cognitive injury [facility] Medical History (Updated 01/20/25 @ 09:58 by Scooter Wright PA-C) Seasonal allergies Tremor Toe infection (06/03/24) Arthritis Depression Anxiety Obesity Hx of psychiatric hospitalization Anemia Psoriasis Insomnia Auditory hallucination Autism spectrum disorder Hyperlipidemia Surgical History S/P total left hip arthroplasty History of left hip replacement H/O colonoscopy Family History Mother No problems noted. Father No problems noted. Social History Household Members: None Housing: Condominium Are you a primary career advisor to a significant other at home: No Do you presently have visiting nurse or other home services: Yes Alcohol intake: never Patient Tobacco Use Status: Never used Tobacco Tobacco use type: Cigarette e-Cigarette/Vaping Use: Never Used Second Hand Smoke Exposure: No Advance Directives Date on File: 11/26/20 service: No Current occupational status: unemployed Cognitive needs: Yes (walker) Hearing needs: No Vision needs: Yes (glasses) Review of Systems Const Denies chills and Denies fever(s) Card Reports no additional complaints and Denies syncope Resp Denies cough GI Denies abdominal pain and Denies heartburn Reports as per HPI and Denies change in libido Neuro Denies syncope Psych Denies change in libido Endo Denies change in libido Physical Exam Const General: cooperative, healthy appearing, comfortable and no acute distress Orientation/consciousness: patient oriented x3 HEENT Face and sinus: Yes normal facial exam Mouth: moist mucous membranes Neck Neck: Yes normal visual inspection, Yes full ROM and Yes trachea midline Chest Chest palpation & inspection: normal inspection of the chest Resp Effort & Inspection: normal respiratory effort, able to speak in complete sentences and no respiratory distress GI Inspection: Yes normal to inspection Back/Spine/Pelvis Cervical Spine: normal cervical lordosis Thoracic/Lumbar Spine: thoracic and lumbar spine normal to inspection Skin General skin exam: no rashes or lesions noted Neuro General: patient oriented x3, gait normal, tone normal and moves all extremities Extrem General: Yes normal to inspection and Yes capillary refill normal Assessment & Plan Assessment & Plan (1) Urinary frequency: Code(s): R35.0 - Frequency of micturition Category: Medical (2) Incomplete emptying of bladder due to benign prostatic hyperplasia: Code(s): N40.1 - Benign prostatic hyperplasia with lower urinary tract symptoms; R33.9 - Retention of urine, unspecified Category: Medical Plan Six-month follow-up PVR Medications: Changed From bethanechol chloride 50 mg PO BID 30 days 60 tabs 2RF N39.0 - Urinary tract infection, site not specified, N40.1 - Benign prostatic hyperplasia with lower urinary tract symptoms, R33.9 - Retention of urine, unspecified To bethanechol chloride 50 mg PO BID 180 tabs 1RF 90 days N39.0 - Urinary tract infection, site not specified, N40.1 - Benign prostatic hyperplasia with lower urinary tract symptoms, R33.9 - Retention of urine, unspecified Refilled doxazosin 4 mg PO BEDTIME 90 tabs 1RF 90 days N40.1 - Benign prostatic hyperplasia with lower urinary tract symptoms, R33.9 - Retention of urine, unspecified Patient Instructions: This note is constructed using voice recognition software. While every effort has been made to ensure accuracy field clerk errors may have been included. Imaging studies, laboratory and physical exam results were discussed and reviewed in detail. No major barriers to patient understanding were identified. An opportunity to ask questions regarding the treatment plan was provided. All questions were answered. The patient expressed understanding and agreement with the above treatment plan. The patient is aware they should contact our office by phone for worsening of their current condition or the appearance of new urologic symptoms. Compliance is encouraged with any medications and followup testing that is ordered. It is a privilege to participate in the urologic care of your patient. If you have any questions or concerns regarding treatment for the above conditions, or other urologic issues, please do not hesitate to contact me. The office telephone contact is [phone]. Sincerely, Dr Martin Nava MD, [facility] - Urology Compassionate Specialist Care for the Genitourinary System Coding Level of Care Code Est Pt Level 3 (60192) Complex EM visit Add On G2211 Diagnoses Urinary frequency R35.0 Incomplete emptying of bladder due to benign prostatic hyperplasia N40.1; R33.9
== END 2025-02-24 11:31 | disposition home or self-care (01) ==
LOC: HO.HUSH 10:10
PROVIDERS: PCP Physician Assistant; Visit Provider Urology
DX: N40.1 Benign prostatic hyperplasia with lower urinary tract symptoms (principal); R35.0 Frequency of micturition; R33.9 Retention of urine, unspecified; Z13.9 Encounter for screening, unspecified
CPT/HCPCS: 99213; G2211

== ENCOUNTER → 2025-02-24 10:09 | Outpatient (BNVA) | payer MEDICARE, MEDICAID, SELFPAY | PROVIDERS: PCP Physician Assistant; Visit Provider Urology | DX: N40.1 Benign prostatic hyperplasia with lower urinary tract symptoms (principal); R39.9 Unspecified symptoms and signs involving the genitourinary system; N39.0 Urinary tract infection, site not specified; R35.0 Frequency of micturition; Z79.899 Other long term (current) drug therapy | CPT/HCPCS: 51798; 81003; 99212 ==

== ENCOUNTER 2025-03-30 08:09 | Outpatient (AMB) | payer MEDICARE, MEDICAID, SELFPAY ==
--- NOTE | 2025-03-30 09:16 | A.OFFVIS_ITS ---
Vital Signs 03/30/25 09:16 Height 6 ft 1 in Intake Visit Reasons: 6 month Allergies No Known Allergies (No Known Allergies*) Allergy (Verified 03/30/25 09:17) Medication List - Last Reconciled 03/30/25 by Noris Hewitt CNP acetaminophen 650 mg (2 x 325 mg) PO Q6H PRN 30 days atorvastatin 80 mg PO DAILY bethanechol chloride 50 mg PO BID 90 days [cane As directed] celecoxib 200 mg PO BID 30 days doxazosin 4 mg PO BEDTIME 90 days folic acid 1 mg PO DAILY [Grab Bar As directed] olanzapine 20 mg PO BEDTIME primidone 50 mg PO BID [Raised toilet seat As directed] risankizumab-rzaa (Skyrizi) 150 mg subcut Q12W [SHOWER CHAIR As directed] walker Folding Front wheeled walker HPI Comments Details: 53-year-old man with h/o psychosis, psoriasis, arthritis, and benign essential tremor. His walking was affected due to knee arthritis and pain He was doing okay. Tremor was okay. No functional impairment.?No difficulty eating, drinking, or swallowing. He was walking with cane, no falls. Sleep was okay. Mood was okay. [facility] Medical History (Updated 03/30/25 @ 09:19 by Noris Hewitt CNP) Benign essential tremor Seasonal allergies Tremor Toe infection (06/03/24) Arthritis Depression Anxiety Obesity Hx of psychiatric hospitalization Anemia Psoriasis Insomnia Auditory hallucination Autism spectrum disorder Hyperlipidemia Surgical History S/P total left hip arthroplasty History of left hip replacement H/O colonoscopy Family History Mother No problems noted. Father No problems noted. Social History Household Members: None Housing: Condominium Are you a primary pulmonary care nurse to a significant other at home: No Do you presently have visiting nurse or other home services: Yes Alcohol intake: never Patient Tobacco Use Status: Never used Tobacco Tobacco use type: Cigarette e-Cigarette/Vaping Use: Never Used Second Hand Smoke Exposure: No Advance Directives Date on File: 11/26/20 service: No Current occupational status: unemployed Cognitive needs: Yes (walker) Hearing needs: No Vision needs: Yes (glasses) Review of Systems Const Denies chills, Denies daytime sleepiness, Denies difficulty sleeping, Denies fatigue, Denies fever(s), Denies frequent falls, Denies headache(s), Denies increased appetite, Denies poor appetite, Denies snoring, Denies weakness, Denies weight gain and Denies weight loss Eyes Denies loss of vision ENT Denies vertigo, Denies dizziness and Denies headache(s) Card Denies chest pain at rest, Denies chest pain with activity, Denies syncope, Denies leg edema and Denies palpitations Resp Denies snoring GI Denies constipation, Denies heartburn, Denies diarrhea and Denies nausea Denies urinary frequency, Denies urinary incontinence and Denies urinary urgency Musc Denies abnormal gait, Denies numbness and Denies tingling Skin/Breast Denies dry skin and Denies rash Neuro Denies abnormal gait, Denies vertigo, Denies dizziness, Denies syncope, Denies frequent falls, Denies headache(s), Denies lack of coordination, Denies loss of vision, Denies memory loss, Denies numbness, Denies restless legs, Denies seizure-like activity, Denies tingling, Denies paresthesias, Reports tremor(s) and Denies weakness Psych Denies anxiety, Denies depression, Denies auditory hallucinations, Denies memory loss, Denies visual hallucinations and Denies suicidal ideation Endo Denies fatigue and Denies palpitations Physical Exam Const Other: General Appearance:? normal, in no acute distress. Skin:? no rashes, no significant birthmarks. Heart:? S1, S2 normal, no murmurs. Lungs:? clear anteriorly and posteriorly. Extremities:? no edema. Psych:? alert, oriented, cognitive function intact, cooperative with exam. Neuro Other: Mental Status:?Normal attention, orientation, and flat affect.? Cranial Nerves:?Pupils are equal, round and reactive to light. External occular muscles are intact. Visual lewis are full. Face is symmetrical. Facial sensations are normal. Tongue is midline. Palate elevates symmetrically. Shoulder shrugging is normal. Hearing to bedside conversation is normal..? Coordination:?No ataxia,?no titubation.? Gait Exam: Wide based, slow and cautious with cane. Cerebellar Signs:?[id number] with tremor. Extrapyramidal System:?No tremor, rigidity with normal facial expressions.? Pronator Drift:?Not present.? Involuntary Movements:?Fine tremors of the outstretched hands.? Speech:?Normal.? Assessment & Plan Assessment & Plan (1) Benign essential tremor: Code(s): G25.0 - Essential tremor Category: Medical Plan: Continue primidone 50mg 1 tablet twice a day. Coding Level of Care Code Est Pt Level 3 (01321) Diagnoses Benign essential tremor G25.0
== END 2025-03-30 09:23 | disposition home or self-care (01) ==
LOC: HO.HSM 08:10
PROVIDERS: PCP Physician Assistant; Referring Provider Internal Medicine; Visit Provider Registered Nurse
DX: G25.0 Essential tremor (principal)
CPT/HCPCS: 99213

== ENCOUNTER 2025-03-30 08:09 | Outpatient (REF) | payer MEDICARE, MEDICAID, SELFPAY ==
[2025-03-30 10:13] LABS: Hematocrit 40.6 % (42.0-52.0); Hemoglobin 13.5 g/dl (14.0-18.0); Mean Corpuscular HGB Conc 33.3 g/dl (31.0-36.0); Mean Corpuscular Hemoglobin 29.5 pg (27.0-33.0); Mean Corpuscular Volume 88.8 fL (80.0-98.0); NRBC Abs Auto 0.000 X10*3/uL (0.0-0.012); NRBC Pct Auto 0.0 /100WBC (0.0-0.2); Platelet Count 224 X10*3/uL (160-400); Red Blood Count 4.57 X10*6/uL (4.60-5.80); White Blood Count 4.1 X10*3/uL (4.8-10.8)
[2025-03-30 10:40] LABS: Alanine Aminotransferase 52 U/L (0-40); Albumin Level 4.6 g/dL (3.5-5.0); Alkaline Phosphatase 114 U/L (39-117); Anion Gap 11 (12-20); Aspartate Amino Transferase 45 U/L (5-37); Blood Urea Nitrogen 10 mg/dL (9-16); Calcium 9.1 mg/dL (8.4-10.2); Carbon Dioxide 28 mmol/L (22-29); Chloride 106 mmol/L (96-108); Cholesterol 130 mg/dL (<200); Estimated Glomerular Filt Rate > 60; HDL Cholesterol 40 mg/dL (>40); Potassium 3.9 mmol/L (3.3-5.1); Sodium 141 mmol/L (135-145); Total Protein 7.7 g/dL (6.5-8.0); Triglycerides 49 mg/dL (<150)
== END 2025-03-30 08:10 | disposition home or self-care (01) ==
LOC: HO.LAB 08:09
PROVIDERS: Absent Provider Physician Assistant; PCP Physician Assistant; Referring Provider Internal Medicine; Visit Provider Registered Nurse
DX: G25.0 Essential tremor (principal); E78.5 Hyperlipidemia, unspecified; Z79.899 Other long term (current) drug therapy; Z12.5 Encounter for screening for malignant neoplasm of prostate
CPT/HCPCS: 36415; 80053; 80061; 84153; 85027; 99212

== ENCOUNTER 2025-04-29 08:35 | Outpatient (AMB) | payer MEDICARE, MEDICAID, SELFPAY ==
[2025-04-29 08:43] VITALS: BP 116/74; PULSE 65; RESP 18; TEMP 36.3; O2SAT 97; BMI 32.4
--- NOTE | 2025-04-29 08:47 | AM.OFFVISMDC ---
Intake Vital Signs 04/29/25 08:43 04/29/25 08:53 Height 6 ft 1 in Weight 245 lb 6 oz BMI 32.4 32.4 BP 116/74 Blood Pressure Location Lt brachial Position Sitting Respiration 18 Pulse 65 Pulse Source Pulse Oximeter Temp 97.3 F Temp Source Temporal Artery Scan Pulse Oximetry (%) 97 Oxygen Delivery Method Room Air Intake Visit Reasons: awv Manager Of It Required: No Accompanied by: Self / Same As Patient Allergies No Known Allergies (No Known Allergies*) Allergy (Verified 04/29/25 09:07) Medication List - Last Reconciled 04/29/25 by Scooter Wright PA-C acetaminophen 650 mg (2 x 325 mg) PO Q6H PRN 30 days atorvastatin 80 mg PO DAILY bethanechol chloride 50 mg PO BID 90 days [cane As directed] celecoxib 200 mg PO BID 30 days doxazosin 4 mg PO BEDTIME 90 days folic acid 1 mg PO DAILY [Grab Bar As directed] olanzapine 20 mg PO BEDTIME primidone 50 mg PO BID [Raised toilet seat As directed] risankizumab-rzaa (Skyrizi) 150 mg subcut Q12W [SHOWER CHAIR As directed] walker Folding Front wheeled walker HPI awv HPI Details Patient is a 54-year-old male here today for an annual wellness visit. Previous PCP was Dr. Daniels. Patient has a past medical history significant for osteoarthritis of the hips, autism spectrum disorder, hyperlipidemia. Today we discussed patient's [place] of care, end of life planning and comprehensive care plan which was scanned into patient's documents Vaccines: Up-to-date with COVID vaccine, considering flu vaccine this year, needs a tetanus vaccine and willing to get today Colorectal cancer screening: Colonoscopy done in 2020, hyperplastic polyp, repeat 10 years Laboratory Tests 07/09/24 03/30/25 05:57 09:53 RBC 4.57 L D Hgb 11.0 L 13.5 L D Creatinine 0.87 Fasting Glucose 112 H Cholesterol 130 PSA Screen 0.43 HPI Comments History of Present Illness Details reviewed past medical history- yes reviewed surgical / hospitalization history- yes reviewed current medications- yes reviewed family history- yes home safety throw rugs? grab bars? raised toilet seat? working smoke detectors? activities of daily living difficulty bathing or showering? difficulty dressing? difficulty using the toilet? difficulty getting in and out of bed? difficulty walking? receives help from other person's with any of the above tasks? instrumental activities of daily living uses telephone - gets to place out of walking distance- go shopping for groceries- repairs own meals- does own minor home maintenance- does own laundry- does own housework- manages own money- currently takes medication- end of life planning discussed advanced directives- yes advanced directives on file? discussed wishes expressed in advanced directives. fall risk have you had any falls with injuries in the past year? have you had 2 or more falls in the past year? fall risk assessment: [facility] Medical History Benign essential tremor Seasonal allergies Tremor Toe infection (06/03/24) Arthritis Depression Anxiety Obesity Hx of psychiatric hospitalization Anemia Psoriasis Insomnia Auditory hallucination Autism spectrum disorder Hyperlipidemia Surgical History S/P total left hip arthroplasty History of left hip replacement H/O colonoscopy Family History Mother No problems noted. Father No problems noted. Social History Household Members: None Housing: Condominium Are you a primary healthcare consulting manager to a significant other at home: No Do you presently have visiting nurse or other home services: Yes Alcohol intake: never Patient Tobacco Use Status: Never used Tobacco Tobacco use type: Cigarette e-Cigarette/Vaping Use: Never Used Second Hand Smoke Exposure: No Advance Directives Date on File: 11/26/20 service: No Current occupational status: unemployed Cognitive needs: Yes (walker) Hearing needs: No Vision needs: Yes (glasses) Questionnaire Medicare Wellness Checkup What gender do you identify with?: male During the past 4 weeks, how much have you been bothered by emotional problems such as feeling anxious, depressed, irritable, sad or downhearted, and blue?: not at all During the past 4 weeks, has your physical & emotional health limited your social activities with family, friends, neighbors, or groups?: not at all During the past 4 weeks, how much bodily pain have you generally had?: no pain During the past 4 weeks, was someone available to help you if you needed & wanted help?: no, not at all During the past 4 weeks, what was the hardest physical activity you could do for at least 2 minutes?: light Can you get to places out of walking distance without help? (For eg., can you travel alone on buses, taxis or drive your car?): Yes Can you go shopping for groceries or clothes without someone's help?: Yes Can you prepare your own meals?: No Can you do your housework without help?: Yes Because of any health problems, do you need the help of another person with your personal care needs such as eating, bathing, dressing or getting around the house?: No Can you handle your own money without help?: Yes During the past 4 weeks, how would you rate your health in general?: excellent During the past 4 weeks how have things been going for you?: very well; could hardly better Are you having difficulties driving your car?: no Do you always fasten your seat belt when you are in a car?: yes, usually During past 4 weeks, have you been bothered by the following: never: Falling or dizzy when standing up, Sexual problems?, Trouble eating well?, Teeth or denture problems?, Problems using the telephone? and Tiredness or fatigue? Have you fallen 2 or more times in the past year?: No Are you afraid of falling?: No During the past 4 weeks, how many drinks of wine, beer, or other alcoholic beverages did you have?: no alcohol at all Do you exercise for about 20 minutes 3 or more times a week?: yes, some of the time Have you been given information to help with the following?: no: Hazards in your house that might hurt you? and no: Keeping track of your medications? How often do you have trouble taking medicines the way you have been told to take them?: sometimes I take medicine as prescribed How confident are you that you can control & manage most of your health problems?: very confident What is your race?: Black or Mini Mental State Exam (MMSE) Orientation What is the (year) (season) (date) (day) (month)?: year Where are we (state) (county) (town or city) (hospital) (floor)?: town or city Attention & Calculation (CHOOSE ONE) Spell WORLD backwards (DLROW): 5 letters Score Score: 7 Activity of Daily Living Bathing - sponge bath, tub bath or shower: receives no assistance (gets in/out by self, if usual bathing means Dressing - getting clothes from closets & drawers, including inner/outer garments & fasteners.: gets clothes & gets completely dressed without help Toileting - going to the 'toilet room' for urine/bowel elimination & cleaning self/arranging clothes: goes to toilet room, cleans self, arranges clothes without help Transfer: moves in & out of bed and chair without help (may use support object) Continence: controls urination/bowel movements completely by self Feeding: feeds self without help Total Score: 0 Information obtained from: patient Using telephone: independent Traveling: independent Shopping: independent Preparing meals: dependent Housework: independent Taking medicine: independent Managing money: independent PHQ-9 Over the last 2 weeks, how often have you been bothered by any of the following problems? 1. Little interest or pleasure in doing things: several days 2. Feeling down, depressed, or hopeless: not at all 3. Trouble falling or staying asleep, or sleeping too much: not at all 4. Feeling tired or having little energy: not at all 5. Poor appetite or overeating: not at all 6. Feeling bad about yourself - or that you are a failure or have let yourself or your family down: not at all 7. Trouble concentrating on things, such as reading the newspaper or watching television: not at all 8. Moving or speaking so slowly that other people could have noticed. Or the opposite - being so fidgety or restless that you have been moving around a lot more than usual: not at all 9. Thoughts that you would be better off or of hurting yourself in some way: not at all Total score: 1 Depression Screening Interpretation: Negative Depression Screening Done: Yes 00399 - PHQ-9 Billing: Yes Source: Developed by Drs. Tyrell Keen, Tiffany Brooks, Chucho Abdi and colleagues, with an educational halina from [employer]. Physical Exam Vital Signs: Last Vital Signs Temp 97.3 F 04/29/25 08:43 Pulse 65 04/29/25 08:43 Resp 18 04/29/25 08:43 BP 116/74 04/29/25 08:43 Pulse Ox 97 04/29/25 08:43 Oxygen Delivery Method Room Air 04/29/25 08:43 BMI result Body Mass Index 32.4 HEENT Other: hearing screening whisper test- passed Eyes Other: vision screening- 20/20 OS OD OU Other: urinary incontinence? no Neuro Other: balance Romberg- normal tandem walk test- Able walk-in turned test- able rise from sit to stand- within 4 seconds Immunizations Boostrix Tdap 2.5 Lf unit-8 mcg-5 Lf/0.5 mL intramuscular syringe Performing Provider: Scooter Wright PA-C [facility] Administered by: Angely Elder LPN on 04/29/25 09:38 Dose Route Admin Location Dispensed Lot Number Expiration Date [facility] Dobie Man 0.5 mL IM Left Deltoid 0.5 mL [id number] 06/19/27 [id number] [employer] Total Dispensed Waste 0.5 mL 0 % VIS Given Date VIS Provided VIS Publication Date 04/29/25 Single Vaccine 21 Eligibility Eligibility Date Funding Source Not [facility] Eligible 04/29/25 Private Assessment & Plan Assessment & Plan (1) Annual wellness visit: Code(s): Z00.00 - Encounter for general adult medical examination without abnormal findings Plan: As per HPI Orders: Orders TDaP Immunization Today Z23 - Encounter for immunization Quality Reporting (2019) Depression/Bipolar (159/160/161/177) PHQ-9: Total score: 1 Coding Level of Care Code Medicare First (G0438) Diagnoses Annual wellness visit Z00.00 CPT Codes Advance Care Planning - Time spent: 1-15 minutes, on File ([id number]) Additional Codes PHQ-9 - 22321 - PHQ-9 Billing: Yes ([id number]) Advance Care Planning Advance Care Planning discussion: Completed/Scanned Date of discussion: 04/29/25 Forms completed: MOLST Time spent: 1-15 minutes, on File Actual minutes spent: 5
[2025-04-29 08:53] VITALS: BMI 32.4
--- OUTSIDE RECORDS SUMMARY | 2025-05-28 20:00 | XMS_ITS | Clinical Summary ---
Author Organization Unknown Care Team Providers Care Dural Mechanic Name Role Phone MARBELLA WILD, ESTIVEN Unavailable Unavailable LUISA MCDONALD, SHILPI Unavailable Unavailable Payers Payer Name Policy Type Policy Number Effective Date Expira tion Date [place] - [place] [id number] ON DEMAND MEDICARE - [facility] BILLING - ABN [id number] Problems Condition Name Condition Details Condition Category [...] 80 mg tablet 10-07 00:00: 00 Yes [id number] 80 mg DAILY 80 mg DAILY (route: oral) Alternate Route: By mouth. Med Classific ation: Cardiovas cular Therapy Agents folic acid 1 mg tablet 10-31 00:00: 00 Yes [id number] 1 mg DAILY 1 mg ANA ROSA Y (route: oral) Alternate Route: NONE. Med Classific ation: Electroly te Balance-N utritiona l Products primidone 50 mg tablet 10-31 00:00: 00 Yes [id number] 50 mg 2 TIMES DAILY 50 mg 2 TIMES DAILY (route: oral) Alternate Route: NONE. Med Classific ation: Central Nervous System Agents secukinumab 150 mg/mL subcutaneou s pen injector 10-29 00:00: 00 09-30 23:59 :00 No [id number] 150 mg MONTHLY 150 mg MONTHLY (route: subcutaneo us) Med Classific ation: Dermatolo gical Zyprexa 5 mg tablet 02-05 00:00: 00 02-06 23:59 :00 No [id number] 5 mg EVERY AM 5 mg EVERY AM (route: oral) Alternate Route: NONE. Med Classific ation: Central Nervous System Agents Skyrizi 150 mg/mL subcutaneou s pen injector 09-30 00:00: 00 Yes [id number] 150 mg DIRECTED 150 mg DIRECTED (route: subcutaneo us) Med Classific ation: Dermatolo gical Zyprexa 7.5 mg tablet 02-15 00:00: 00 06-06 23:59 :00 No [id number] 7.5 mg DAILY 7.5 mg DAILY (route: oral) Med Classific ation: Central Nervous System Agents Zyprexa 10 mg tablet 2022-08 0-15 00:00: 00 10-03 23:59 :00 No [id number] 10 mg BEDTIME 10 mg BEDTIME (route: oral) Med Classific ation: Central Nervous System Agents Zyprexa 2.5 mg tablet 2022-08 0-15 00:00: 00 08-09 23:59 :00 No [id number] 2.5 mg BEDTIME 2.5 mg BEDTIME (route: oral) Med Classific ation: Central Nervous System Agents Zyprexa 5 mg tablet 2022-08 2-14 00:00: 00 10-03 23:59 :00 No [id number] 5 mg BEDTIME 5 mg BEDTIME (route: oral) Med Classific ation: Central Nervous System Agents Zyprexa 20 mg tablet -12 00:00: 00 Yes [id number] 20 mg BEDTIME 20 mg BEDTIME (route: oral) Med Classific ation: Central Nervous System Agents benztropine 0.5 mg tablet -07 00:00: 00 Yes [id number] 0.5 mg 2 TIMES DAILY 0.5 mg 2 TIMES DAILY (route: oral) Med Classific ation: Central Nervous System Agents haloperidol 5 mg tablet 07 00:00: 00 Yes [id number] 5 mg EVERY AM 5 mg EVER Y AM (route: oral) Med Classific ation: Central Nervous System Agents Vital Signs Vital Name Observation Time Observation Value Commen ts Temperature 2025-04-27 09:17:00.000 97.5 [degF] Temperature 2025-04-24 08:25:00.000 97.5 [degF] Temperature 2025-04-22 08:33:00.000 97.6 [degF] Temperature 2025-04-20 08:33:00.000 97.5 [degF] Temperature 2025-04-17 09:15:00.000 97.5 [degF] Temperature 2025-04-15 07:32:00.000 97.3 [degF] Temperature 2025-04-13 11:49:00.000 97.3 [degF] Temperature 2025-04-08 07:57:00.000 97.2 [degF] Pulse 2025-04-15 07:32:00.000 61 /min Pulse 2025-04-13 11:49:00.000 87 /min Pulse 2025-04-08 07:59:00.000 79 /min O2 Saturation (%) 2025-04-15 07:32:00.000 96 % Respirations 2025-04-15 07:32:00.000 16 /min Respirations 2025-04-13 11:49:00.000 16 /min Respirations 2025-04-08 07:57:00.000 16 /min Systolic Blood Pressure 2025-04-15 07:32:00.000 127 mm [Hg] Systolic Blood Pressure 2025-04-13 11:49:00.000 146 mm [Hg] Systolic Blood Pressure 2025-04-08 07:57:00.000 139 mm [Hg] Diastolic Blood Pressure 2025-04-15 07:32:00.000 [...] AWARENESS FOR SAFETY AND WILL NOTIFY CLINICAL CAREER INFORMATION SPECIALIST AND PHYSICIAN/PROVIDER WITH ANY CHANGE IN CONDITION. [code = SKILLED NURSE WILL MAINTAIN SITUATIONAL AWARENESS FOR SAFETY AND WILL NOTIFY CLINICAL CAREER INFORMATION SPECIALIST AND PHYSICIAN/PROVIDER WITH ANY CHANGE IN CONDITION.] Goal 2019-02-05 Patient Goal - MORE INVOLVED WITH MY CARE Goal 2018-12-31 Patient Goal - I WILL GIVE MYSELF MY INJECTION Goal 2019-08-28 Patient Goal - T MALINI [...] [facility] Goal 2024-11-26 Patient Goal - T MALINI [...] CARE WILL BE ESTABLISHED THAT MEETS PATIENT'S SHELTER NEEDS AND INCLUDES PATIENT GOAL FOR HOME [...] End Date/Time Encounter Type Admission Type Attending [facility] Care Department Encounter ID Discharge Date Discharge Status Discharge Condition Discharge Reason Percent Goals Met 2025-03-31 00:00:00 2025-05-29 00:00:00 Outpatient RECERTIFIC ATION SHILPI MORAN [facility] [id number] 70.59
== END 2025-04-29 09:26 | disposition home or self-care (01) ==
LOC: HO.HMCH 08:35
PROVIDERS: PCP Physician Assistant; Visit Provider Physician Assistant
DX: Z00.00 Encounter for general adult medical examination without abnormal findings (principal); Z23 Encounter for immunization

== ENCOUNTER → 2025-04-29 08:35 | Outpatient (BNVA) | payer MEDICARE, MEDICAID, SELFPAY | PROVIDERS: PCP Physician Assistant; Visit Provider Physician Assistant | DX: Z00.00 Encounter for general adult medical examination without abnormal findings (principal); Z23 Encounter for immunization; E78.5 Hyperlipidemia, unspecified; F41.9 Anxiety disorder, unspecified | CPT/HCPCS: 90471; 90715; 96127 ==

== ENCOUNTER 2025-05-18 10:07 | Outpatient (AMB) | payer MEDICARE, MEDICAID, SELFPAY ==
[2025-05-18 10:17] VITALS: BMI 32.3
--- NOTE | 2025-05-18 10:17 | A.OFFVIS_ITS ---
Vital Signs 05/18/25 10:17 Height 6 ft 1 in Weight 245 lb BMI 32.3 Intake Visit Reasons: OV-LT AUSTEN w/NE 07/08/24 Intake Note: Kenny is a 54 year old male who presents today for a follow up of his Left Hip about one year s/p Left AUSTEN 07/08/24. At his last visit in October he was given a note to return to work without restrictions. States he has no pain and is doing well, he continues to use cane to keep stable but has no concerns for his left AUSTEN at todays visit. Allergies No Known Allergies (No Known Allergies*) Allergy (Verified 05/18/25 10:28) HPI HPI OV-LT AUSTEN w/NE 07/08/24: Details: Pratik Christie is 10 months status post left hip replacement. He comes in today doing well. He has no complaints of pain. [facility] Medical History Benign essential tremor Seasonal allergies Tremor Toe infection (06/03/24) Arthritis Depression Anxiety Obesity Hx of psychiatric hospitalization Anemia Psoriasis Insomnia Auditory hallucination Autism spectrum disorder Hyperlipidemia Surgical History S/P total left hip arthroplasty History of left hip replacement H/O colonoscopy Family History Mother No problems noted. Father No problems noted. Social History Household Members: None Housing: Condominium Are you a primary client care coordinator to a significant other at home: No Do you presently have visiting nurse or other home services: Yes Alcohol intake: never Patient Tobacco Use Status: Never used Tobacco Tobacco use type: Cigarette e-Cigarette/Vaping Use: Never Used Second Hand Smoke Exposure: No Advance Directives Date on File: 11/26/20 service: No Current occupational status: unemployed Cognitive needs: Yes (walker) Hearing needs: No Vision needs: Yes (glasses) Physical Exam Exam Exam: No acute distress Incision clean dry and intact No pain with active or passive hip range of motion Shuffling gait (baseline) Vital Signs: BMI result Body Mass Index 32.3 Assessment & Plan Assessment & Plan (1) Status post left hip replacement: Code(s): Z96.642 - Presence of left artificial hip joint Category: Surgical Plan: Pratik is 10 months status post left hip replacement doing well. He has no pain in his able to engage in daily activities. His exam is normal. He may follow up in 1 year's time. Coding Level of Care Code Est Pt Level 3 (79548) Diagnoses Status post left hip replacement Z96.642
== END 2025-05-18 10:41 | disposition home or self-care (01) ==
LOC: HO.HOS 10:08
PROVIDERS: PCP Internal Medicine; Visit Provider Orthopaedic Surgery
DX: Z47.89 Encounter for other orthopedic aftercare (principal); Z96.642 Presence of left artificial hip joint
CPT/HCPCS: 99213

== ENCOUNTER → 2025-05-18 10:07 | Outpatient (BNVA) | payer MEDICARE, MEDICAID, SELFPAY | PROVIDERS: PCP Internal Medicine; Visit Provider Orthopaedic Surgery | DX: Z09 Encounter for follow-up examination after completed treatment for conditions other than malignant neoplasm (principal); Z96.642 Presence of left artificial hip joint | CPT/HCPCS: 99212 ==

== ENCOUNTER 2025-05-28 06:51 | Outpatient (REF) | payer MEDICARE, MEDICAID, SELFPAY ==
--- NOTE | ~2025-05-28 | US_ITS ---
CLINICAL HISTORY: R74.8 - Abnormal levels of other serum enzymes --- Additional Notes or Special Instructions: Chronically Elevated liver enzymes, ultrasound to evaluate for fatty liver US abdomen complete with duplex and color Doppler Comparison: None Findings: The visualized pancreas, aorta, and inferior vena cava are unremarkable. Mild hepatomegaly. Mild increased hepatic echotexture. Right lobe 19.7 cm length. Suspect focal fatty sparing near the gallbladder fossa. Common duct 5.0 mm diameter. Physiologic distention of the gallbladder. No gallstones or sludge. No gallbladder wall thickening. No pericholecystic fluid. No sonographic Hamilton sign. Main portal vein antegrade. Right kidney normal size, 12.1 cm in length. Normal cortical width and echotexture. No solid or cystic renal masses. No nephrolithiasis. No hydronephrosis. Left kidney normal, 13.7 cm in length. Normal cortical width and echotexture. No solid or cystic renal masses. No nephrolithiasis. No hydronephrosis. Spleen measures 10.8 cm. No splenic masses. No ascites. No lymphadenopathy. Impression: 1. Mild hepatomegaly. Suspect hepatic steatosis with focal fatty sparing. Contrast-enhanced multiphase MRI of the abdomen would be confirmatory. This document has been electronically signed by: Brown Aguirre MD on 05/28/2025 15:54:31
--- OUTSIDE RECORDS SUMMARY | 2025-05-28 20:00 | XMS_ITS | Clinical Summary ---
Author Organization Unknown Care Team Providers Care Knuckler Name Role Phone MARBELLA WILD, ESTIVEN Unavailable Unavailable LUISA MCDONALD, SHILPI Unavailable Unavailable Payers Payer Name Policy Type Policy Number Effective Date Expira tion Date [place] - ABN [id number] ON DEMAND MEDICARE - [facility] BILLING - ABN [id number] Problems Condition Name Condition Details Condition Category [...] 80 mg tablet 10-07 00:00: 00 Yes [id number] 80 mg DAILY 80 mg DAILY (route: oral) Alternate Route: By mouth. Med Classific ation: Cardiovas cular Therapy Agents folic acid 1 mg tablet 10-31 00:00: 00 Yes [id number] 1 mg DAILY 1 mg ANA ROSA Y (route: oral) Alternate Route: NONE. Med Classific ation: Electroly te Balance-N utritiona l Products primidone 50 mg tablet 10-31 00:00: 00 Yes [id number] 50 mg 2 TIMES DAILY 50 mg 2 TIMES DAILY (route: oral) Alternate Route: NONE. Med Classific ation: Central Nervous System Agents secukinumab 150 mg/mL subcutaneou s pen injector 10-29 00:00: 00 09-30 23:59 :00 No [id number] 150 mg MONTHLY 150 mg MONTHLY (route: subcutaneo us) Med Classific ation: Dermatolo gical Zyprexa 5 mg tablet 02-05 00:00: 00 02-06 23:59 :00 No [id number] 5 mg EVERY AM 5 mg EVERY AM (route: oral) Alternate Route: NONE. Med Classific ation: Central Nervous System Agents Skyrizi 150 mg/mL subcutaneou s pen injector 09-30 00:00: 00 Yes [id number] 150 mg DIRECTED 150 mg DIRECTED (route: subcutaneo us) Med Classific ation: Dermatolo gical Zyprexa 7.5 mg tablet 02-15 00:00: 00 06-06 23:59 :00 No [id number] 7.5 mg DAILY 7.5 mg DAILY (route: oral) Med Classific ation: Central Nervous System Agents Zyprexa 10 mg tablet 2022-08 0-15 00:00: 00 10-03 23:59 :00 No [id number] 10 mg BEDTIME 10 mg BEDTIME (route: oral) Med Classific ation: Central Nervous System Agents Zyprexa 2.5 mg tablet 2022-08 0-15 00:00: 00 08-09 23:59 :00 No [id number] 2.5 mg BEDTIME 2.5 mg BEDTIME (route: oral) Med Classific ation: Central Nervous System Agents Zyprexa 5 mg tablet 2022-08 2-14 00:00: 00 10-03 23:59 :00 No [id number] 5 mg BEDTIME 5 mg BEDTIME (route: oral) Med Classific ation: Central Nervous System Agents Zyprexa 20 mg tablet -12 00:00: 00 Yes [id number] 20 mg BEDTIME 20 mg BEDTIME (route: oral) Med Classific ation: Central Nervous System Agents benztropine 0.5 mg tablet -07 00:00: 00 Yes [id number] 0.5 mg 2 TIMES DAILY 0.5 mg 2 TIMES DAILY (route: oral) Med Classific ation: Central Nervous System Agents haloperidol 5 mg tablet 07 00:00: 00 Yes [id number] 5 mg EVERY AM 5 mg EVER Y AM (route: oral) Med Classific ation: Central Nervous System Agents Vital Signs Vital Name Observation Time Observation Value Commen ts Temperature 2025-05-27 09:19:00.000 97.5 [degF] Temperature 2025-05-25 09:29:00.000 97.5 [degF] Temperature 2025-05-22 09:09:00.000 97.7 [degF] Temperature 2025-05-20 08:40:00.000 97.4 [degF] Temperature 2025-05-18 08:29:00.000 97.7 [degF] Temperature 2025-05-15 08:38:00.000 97.5 [degF] Temperature 2025-05-13 08:27:00.000 97.7 [degF] Temperature 2025-05-11 08:44:00.000 97.4 [degF] Temperature 2025-05-08 08:41:00.000 97.3 [degF] Temperature 2025-05-06 08:51:00.000 97.5 [degF] Temperature 2025-05-04 08:50:00.000 97.5 [degF] Temperature 2025-05-01 08:24:00.000 97.5 [degF] Temperature 2025-04-29 08:01:00.000 97.3 [degF] Temperature 2025-04-27 09:17:00.000 97.5 [degF] Temperature 2025-04-24 08:25:00.000 97.5 [degF] Temperature 2025-04-22 08:33:00.000 97.6 [degF] Temperature 2025-04-20 08:33:00.000 97.5 [degF] Temperature 2025-04-17 09:15:00.000 97.5 [degF] Temperature 2025-04-15 07:32:00.000 97.3 [degF] Temperature 2025-04-13 11:49:00.000 97.3 [degF] Temperature 2025-04-08 07:57:00.000 97.2 [degF] Pulse 2025-05-25 09:29:00.000 82 /min Pulse 2025-04-15 07:32:00.000 61 /min Pulse 2025-04-13 11:49:00.000 87 /min Pulse 2025-04-08 07:59:00.000 79 /min O2 Saturation (%) 2025-04-15 07:32:00.000 96 % Respirations 2025-05-25 09:29:00.000 18 /min Respirations 2025-04-15 07:32:00.000 16 /min Respirations 2025-04-13 11:49:00.000 16 /min Respirations 2025-04-08 07:57:00.000 16 /min Systolic Blood Pressure 2025-05-25 09:29:00.000 114 mm [Hg] Systolic Blood Pressure 2025-04-15 07:32:00.000 127 mm [Hg] Systolic Blood Pressure 2025-04-13 11:49:00.000 146 mm [Hg] Systolic Blood Pressure 2025-04-08 07:57:00.000 139 mm [Hg] Diastolic Blood Pressure 2025-05-25 09:29:00.000 62 mm [Hg] Diastolic Blood Pressure 2025-04-15 07:32:00.000 84 mm [Hg] Diastolic Blood Pressure 2025-04-13 11:49:00.000 85 mm [Hg] Diastolic Blood Pressure 2025-04-08 07:57:00.000 90 mm [Hg] Plan of Treatment Planned Activity [...] OF PATIENTS MENTAL/BEHAVIORAL STATUS, ASSESS VITAL SIGNS EVERY VISIT ALLOW 2 PRNS FOR MEDICATION MANAGEMENT. [code = SKILLED NURSE TO O/A OF PATIENTS MENTAL/BEHAVIORAL STATUS, ASSESS VITAL SIGNS EVERY VISIT ALLOW 2 PRNS FOR MEDICATION MANAGEMENT.] Future Scheduled Test SKILLED NU RSE TO [...] PROBLEMS.] Future Scheduled Test SKILLED NU RSE FOR MEDICATION ADMINISTRATION PER MEDICATION LIST TO BE PERFORMED. [code = SKILLED NURSE FOR MEDICATION ADMINISTRATION PER MEDICATION LIST TO BE PERFORMED.] Future Scheduled Test SKILLED NU RSE TO INSTRUCT PATIENT/CAREGIVER ON ANXIETY MANAGEMENT UTILIZING THE MINDFUL CARE SPECIALTY PROGRAM. [code = SKILLED NURSE TO INSTRUCT PATIENT/CAREGIVER ON ANXIETY MANAGEMENT UTILIZING THE MINDFUL CARE SPECIALTY PROGRAM.] Future Scheduled Test SKILLED NU RSE TO INSTRUCT PATIENT/CAREGIVER ON MANAGING THE EMOTIONAL JOURNEY OF AGING UTILIZING THE EMBRACE SPECIALTY PROGRAM. [code = SKILLED NURSE TO INSTRUCT PATIENT/CAREGIVER ON MANAGING THE EMOTIONAL JOURNEY OF AGING UTILIZING THE EMBRACE SPECIALTY PROGRAM.] Future Scheduled Test SKILLED NU RSE FOR O/A OF ALTERED THOUGHT PROCESS AND/OR DISRUPTION IN COGNITIVE OPERATIONS AND ACTIVITIES [code = SKILLED NURSE FOR O/A OF ALTERED THOUGHT PROCESS AND/OR DISRUPTION IN COGNITIVE OPERATIONS AND ACTIVITIES] Future Scheduled Test SKILLED NU RSE FOR O/A OF SELF-CARE DEFICITS AND TO PROVIDE TEACHING RELATED TO SAFE PROVISION OF ADLS. [code = SKILLED NURSE FOR O/A OF SELF-CARE DEFICITS AND TO PROVIDE TEACHING RELATED TO SAFE PROVISION OF ADLS.] Future Scheduled Test SKILLED NU RSE TO ASSESS PATIENT S PSYCHOSOCIAL STATUS TO IDENTIFY POTENTIAL ISSUES THAT MAY COMPLICATE THE PROVISION OF THE PLAN OF CARE INCLUDING THE PATIENT S ABILITY TO ACCESS COMMUNITY RESOURCES AND PSYCHOSOCIAL SUPPORT SERVICES. [code = SKILLED NURSE TO ASSESS PATIENT S PSYCHOSOCIAL STATUS TO IDENTIFY POTENTIAL ISSUES THAT MAY COMPLICATE THE PROVISION OF THE PLAN OF CARE INCLUDING THE PATIENT S ABILITY TO ACCESS COMMUNITY RESOURCES AND PSYCHOSOCIAL SUPPORT SERVICES.] Future Scheduled Test MEDICATION S WILL BE HELD AND STORED IN LOCKBOX [code = MEDICATIONS WILL BE HELD AND STORED IN LOCKBOX] Future Scheduled Test SKILLED NU RSE FOR O/A AND SKILLED TEACHING OF COPING SKILLS TO MANAGE ANXIETY AND MAINTAIN SAFETY. [code = SKILLED NURSE FOR O/A AND SKILLED TEACHING OF COPING SKILLS TO MANAGE ANXIETY AND MAINTAIN SAFETY.] Future Scheduled Test SKILLED NU RSE WILL MAINTAIN SITUATIONAL AWARENESS FOR SAFETY AND WILL NOTIFY CLINICAL GREASE REFINER OPERATOR AND PHYSICIAN/PROVIDER WITH ANY CHANGE IN CONDITION. [code = SKILLED NURSE WILL MAINTAIN SITUATIONAL AWARENESS FOR SAFETY AND WILL NOTIFY CLINICAL GREASE REFINER OPERATOR AND PHYSICIAN/PROVIDER WITH ANY CHANGE IN CONDITION.] Goal Patient Goal - T MALINI MY [...] DOCTOR Goal 2024-06-02 Patient Goal - T MALIIN MY MEDICATION ORDERED BY THE DOCTOR Goal 2024-07-30 Patient Goal - T MALINI MY MEDICATION ORDERED BY THE DOCTOR Goal 2024-09-27 Patient Goal - T MALINI MY MEDICATION ORDERED BY THE DOCTOR Goal 2024-11-26 Patient Goal - T MALINI MY MEDICATION ORDERED BY THE DOCTOR Goal 2025-01-26 Patient Goal - T MALINI MY MEDICATION ORDERED BY THE DOCTOR Goal 2025-03-30 Patient Goal - T MALINI MY MEDICATION ORDERED BY THE DOCTOR Goal 2025-05-25 Patient Goal - T MALINI MY MEDICATION ORDERED BY THE DOCTOR Goal Provider Goal - A PLAN OF CARE WILL BE ESTABLISHED THAT MEETS PATIENT'S RETIREMENT NEEDS AND INCLUDES PATIENT GOAL FOR HOME HEALTH. Goal Provider Goal - PATIENT/CAREGIVER WILL VERBALIZE/DEMONSTRATE EFFECTIVE HOME SAFETY AND FALL PREVENTION STRATEGIES THROUGHOUT CERTIFICATION PERIOD. Goal Provider Goal - ALTERED MENTAL/BEHAVIORAL STATUS WILL BE IDENTIFIED PROMPTLY AND INTERVENTION INITIATED QUICKLY TO MINIMIZE ASSOCIATED RISKS THROUGHOUT CERTIFICATION PERIOD. Goal Provider Goal - PATIENT/CAREGIVER WILL VERBALIZE UNDERSTANDING OF EDUCATION PROVIDED ON MEDICATIONS BY THE END OF THE CERTIFICATION PERIOD. Goal Provider Goal - PATIENT WILL COMPLY WITH MEDICATION WHEN NURSE ADMINISTERS THROUGHOUT CERTIFICATION PERIOD. Goal Provider Goal - PATIENT WILL VERBALIZE DECREASED ANXIETY LEVEL THROUGHOUT CERTIFICATION PERIOD A RESULT OF PARTICIPATION IN THE MINDFUL CARE SPECIALTY PROGRAM. Goal Provider Goal - PATIENT WILL VERBALIZE UNDERSTANDING OF METHODS TO MANAGE THE EMOTIONAL JOURNEY OF AGING THROUGHOUT THE CERTIFICATION PERIOD A RESULT OF PARTICIPATION IN THE EMBRACE SPECIALTY PROGRAM. Goal Provider Goal - PATIENT WILL BE ABLE TO PERFORM DAILY FUNCTIONS AND HAVE OPTIMAL IMPROVEMENT IN THOUGHT PROCESS THROUGHOUT CERTIFICATION PERIOD. Goal Provider Goal - PATIENT/CAREGIVER WILL VERBALIZE/DEMONSTRATE UNDERSTANDING OF SAFE PROVISION OF ADLS BY THE END OF THE CERTIFICATION PERIOD. Goal Provider Goal - PSYCHOSOCIAL NEEDS WILL BE IDENTIFIED AND PLAN IMPLEMENTED TO MINIMIZE RISK THROUGHOUT CERTIFICATION PERIOD. Goal Provider Goal - MEDICATION WILL BE STORED IN LOCKBOX FOR SAFETY. Goal Provider Goal - PATIENT WILL BE ABLE TO PERFORM DAILY FUNCTIONS AND HAVE OPTIMAL IMPROVEMENT IN LEVEL OF ANXIETY THROUGHOUT CERTIFICATION PERIOD. Goal Provider Goal - PATIENT WILL REMAIN SAFE IN THE COMMUNITY AND WILL BE FREE OF DANGER TO SELF AND OTHERS THROUGHOUT THE CERTIFICATION PERIOD. Encounters Start Date/Time End Date/Time Encounter Type Admission Type Attending [facility] Care Department Encounter ID Discharge Date Discharge Status Discharge Condition Discharge Reason Percent Goals Met 2025-03-31 00:00:00 2025-05-29 00:00:00 Outpatient RECERTIFIC ATION SHILPI MORAN [facility] [id number] 70.59
== END 2025-05-28 06:52 | disposition home or self-care (01) ==
LOC: HO.US 06:51
PROVIDERS: PCP Physician Assistant; Visit Provider Physician Assistant
DX: R74.8 Abnormal levels of other serum enzymes (principal)
CPT/HCPCS: 76700